=== PATIENT | female | born 1945 | race Caucasian/White ===

== ENCOUNTER → 2017-05-18 | Day surgery (SDC) | payer MEDICARE, BC ==
[~2017-05-18] MED LIST: ALPRAZolam 0.25 MG TAB PO PRN; ALPRAZolam 0.5 MG TAB PO PRN; ASPIRIN 325 MG TAB PO STA; ATORVASTATIN 20 MG TAB PO SCH; ATORVASTATIN 80 MG TAB PO STA; FAMOTIDINE 20 MG TAB PO SCH; HEPARIN SODIUM 1,000 UN/ML (10ML VL) IV ONE; HEPARIN SODIUM 1,000 UN/ML (10ML VL) ONE; IOHEXOL 350 MG/ML 125ML BOTTLE INJ ONE; LIDOCAINE 2% INJ 20 MG/ML (20 ML MDV) ONE; LINAGLIPTIN 5 MG TABLET PO SCH; LISINOPRIL 20 MG TAB PO SCH; NITROGLYCERIN SL TABS 0.4 MG TAB SUBLINGUAL PRN; NON-FORMULARY DRUG (Aspirin Ec 325 MG) PO SCH; RX INFO: IV CONTRAST WAS GIVEN 1 EACH MISC MISCELLANE PRN; SODIUM CHLORIDE 0.9% 1,000 ML IV SCH; SODIUM CHLORIDE 0.9% 1,000 ML in EMPTY BAG 1 BAG IV ONE; VERAPAMIL 2.5 MG/ML 2 ML AMP ONE; VERAPAMIL SYRINGE (5 MG/10 ML) INTRAARTER ONE; diphenhydrAMINE 50 MG/ML 1 ML VIAL IVP ONE; diphenhydrAMINE 50 MG/ML 1 ML VIAL ONE; fentaNYL (PF) 50 MCG/ML 2 ML AMP IV ONE; fentaNYL (PF) 50 MCG/ML 2 ML AMP ONE
[2017-05-18 07:01] LABS: Glucose,Whole Blood 113 mg/dL (75-99)
[2017-05-18 07:08] VITALS: RESP 18
[2017-05-18 07:29] LABS: Anion Gap 8 mmol/L; Blood Urea Nitrogen 19 mg/dL (7-17); Calcium 9.6 mg/dL (8.4-10.2); Carbon Dioxide 23 mmol/L (22-30); Chloride 108 mmol/L (98-107); Glucose 108 mg/dL (74-99); Non-African American GFR(MDRD) >60 (>60 ml/min/1.73 sqM); Potassium 4.4 mmol/L (3.5-5.1); Sodium 139 mmol/L (137-145)
[2017-05-18 08:44] VITALS: TEMP 98
--- NOTE | 2017-05-18 12:12 | CC ---
Mrs. Rogers is a 71 year old female with a known history of hypertension, hyperlipidemia, diabetes mellitus, who presented to [facility] with symptoms of progressive dyspnea and has been evaluated by Dr. Steen and subsequently by Dr. Tessa Torres. Underwent myocardial perfusion imaging that revealed evidence of inducible ischemia. In view of that, recommendation was made regarding cardiac catheterization. The procedure as well as risks and complications were discussed with the patient who is in full understanding and agreement. PROCEDURE: The patient was brought to the custodial laborer in a fasting semi-sedated state. After receiving Fentanyl and Benadryl, achieving moderate conscious sedated state, using Xylocaine anesthesia and Seldinger technique, a 6 [place] Islander sheath was introduced into the right radial artery . Selective right and left coronary artery was performed using 5 [place]er 4 Bend, right and left Garrick catheter. Multiple views of the right coronary artery including hemiaxial views were obtained. Following that, the 5 [place] Islander tight pigtail catheter was introduced into the left ventricle and a 30 degree CASTILLO view of the left ventricle was obtained. Following that, catheter and sheath were removed. Hemostasis was obtained with deployment of a TR band. There were no immediate complications. The patient was returned to her room in stable condition. Of note, the patient received 5000 units of intravenous heparin as well as intra- arterial verapamil. FINDINGS: LEFT MAIN: This is a short size vessel large in caliber, bifurcating into left circumflex, left anterior descending artery. Left main coronary artery is without any significant obstructive disease. LEFT ANTERIOR DESCENDING ARTERY: This is a large size vessel tapers down into the distal third giving rise to a moderate sized proximal diagonal branch. The left anterior descending artery as well as branches have no evidence of obstructive coronary artery disease. LEFT CIRCUMFLEX: This is a large nondominant vessel, giving rise to two obtuse marginal branches. The second one is the large in caliber. The left circumflex as well as branches have no evidence of obstructive coronary artery disease. RIGHT CORONARY ARTERY: This is a dominant vessel, moderate to large in caliber, giving rise to a PDA distally. The right coronary artery as well as branches have no evidence of obstructive coronary artery disease. LEFT VENTRICULOGRAM: Left ventriculogram was performed in 30 degree CASTILLO view and revealed normal left ventricular size and systolic function. Ejection fraction 60%. There was no significant mitral regurgitation. HEMODYNAMICS: There was no gradient across the aortic valve. The left ventricular end diastolic pressure was 10 mmHg. CONCLUSION: 1. Normal coronary arteries. 2. Normal left ventricular size and systolic function. Duration of procedure: 15 minutes. MARILUZD
--- NOTE | 2017-05-18 12:17 | MISC ---
Dear Dr. Albright: I had the pleasure of performing cardiac catheterization on Mrs. Rogers at [facility] on the april and a fully copy of procedure note will be forwarded to you. In brief, she was found to have no evidence of obstructive coronary artery disease with normal left ventricular size and systolic function. Based on those findings, I have recommended continued medical therapy with aggressive coronary risks modifications that you have initiated. Thank you again for allowing me to participate in her care. Please feel free to call for any questions. Sincerely yours, JUAN CARLOS
[2017-05-18 13:14] VITALS: BP 124/59; PULSE 79
== END | disposition home or self-care (01) ==
LOC: CATHCVL 05:56
PROVIDERS: ATTEND Internal Medicine Interventional Cardiology
DX: R06.00 Dyspnea, unspecified (principal); R55 Syncope and collapse; I10 Essential (primary) hypertension; E11.9 Type 2 diabetes mellitus without complications; E78.5 Hyperlipidemia, unspecified; Z68.41 Body mass index [BMI] 40.0-44.9, adult; E66.01 Morbid (severe) obesity due to excess calories; Z79.84 Long term (current) use of oral hypoglycemic drugs; Z79.899 Other long term (current) drug therapy; Z88.8 Allergy status to other drugs, medicaments and biological substances
CPT/HCPCS: 93458; 80048; 99152; C1769 ×2; C1894; J1200; J3010; J1644; Q9967

== ENCOUNTER → 2024-09-06 | Outpatient (CLI) | payer MEDICARE, BC ==
[2024-09-06 13:30] LABS: African American GFR (CKD) 84 (>60 ml/min/1.73 sqM); Blood Urea Nitrogen 18 mg/dL (7-17); Non-African American GFR(CKD) 73 (>60 ml/min/1.73 sqM)
--- NOTE | 2024-09-06 16:47 | CT ---
EXAMINATION TYPE: CT angio abdomen pelvis CT DLP: 2291 mGycm, Automated exposure control for dose reduction was used. DATE OF EXAM: 09/06/2024 3:06 PM COMPARISON: None CLINICAL INDICATION:Female, 78 years old with history of I72.8 ANEURYSM OF OTHER SPECIFIED ARTERIES; splenic aneurysm TECHNIQUE: Multiple thin slice sub-millimeter images were obtained through the abdomen and pelvis bef ore and after administration of contrast. Patient was given Isovue 370, 100 cc intravenously. FINDINGS: CTA Abdomen and pelvis: The abdominal aorta does not demonstrate aneurysmal dilatation. Atherosclero tic plaquing is identified within the abdominal aorta. Tortuosity of the abdominal aorta. The origin s of the superior mesenteric artery, renal arteries, inferior mesenteric artery, and celiac axis are patent. Patent fusiform splenic artery aneurysm measuring up to 1.8 cm with peripheral calcification (series 8, image 72). Mild stenosis at the origin of the celiac axis secondary to calcified plaque. T here are 2 left renal arteries. Mild stenosis at the origin of the right single renal artery secondar y to calcified plaque. Atherosclerotic plaquing with some mural thrombus formation is identified in t he common iliac arteries. VISCERA: The liver, spleen, adrenal glands, kidneys, pancreas, and gallbladder are not optimally enha nced due the arterial phase utilized. LIVER: Unremarkable GALLBLADDER AND BILE DUCTS: The gallbladder is surgically absent. No significant biliary ductal dilat ation. PANCREAS: Unremarkable. SPLEEN: Calcified granuloma. ADRENAL GLANDS: Unremarkable. KIDNEYS AND URETERS: No evidence of hydronephrosis or renal calculus. 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 PELVIS BLADDER: Incompletely distended but grossly unremarkable. REPRODUCTIVE: Unremarkable. ABDOMEN & PELVIS STOMACH AND BOWEL: Stomach and duodenum are unremarkable. No focal bowel wall thickening or surroundi ng inflammatory changes. No evidence of bowel obstruction. PERITONEUM: No evidence of pneumoperitoneum or free fluid. MUSCULOSKELETAL: No acute osseous abnormalities. Postsurgical changes with bilateral pedicular screws and rods involving L2-S1. Multilevel degenerative disc disease. Advanced bilateral osteoarthritic ch anges of both hips. LYMPH NODES: No evidence for lymphadenopathy. SOFT TISSUE/ABDOMINAL WALL: Small fat filled umbilical hernia. LOWER CHEST: Mitral annulus and valvular calcifications. Visualized lungs are clear. Elevation of the right hemidiaphragm. IMPRESSION 1. No acute process. 2. Atherosclerotic disease involving abdominal aorta and its branches. Patent splenic artery aneurys m measuring up to 1.8 cm. [facility], , 09/06/2024 4:45 PM
== END ==
LOC: RADCTMAIN 12:15
PROVIDERS: ATTEND Surgery
DX: I72.8 Aneurysm of other specified arteries (principal); I70.0 Atherosclerosis of aorta; K42.9 Umbilical hernia without obstruction or gangrene; M16.0 Bilateral primary osteoarthritis of hip
CPT/HCPCS: 82565; 84520; 36415; 74174; Q9967

== ENCOUNTER 2025-05-07 16:15 | Inpatient (IN) | payer MEDICARE, BC ==
[2025-05-07 17:22] LABS: Basophils # (A) 0.06 10*3/uL (0.00-0.10); Basophils % (A) 0.9 %; Eosinophils # (A) 0.28 10*3/uL (0.04-0.35); Eosinophils % (A) 4.4 %; HCT 34.5 % (37.2-46.3); HGB 10.8 g/dL (12.0-15.0); Lymphocytes # (A) 0.99 10*3/uL (0.90-5.00); Lymphocytes % (A) 15.7 %; MCH 31.3 pg (27.0-32.0); MCHC 31.3 g/dL (32.0-37.0); MCV 100.0 fL (80.0-97.0); Monocytes # (A) 0.61 10*3/uL (0.20-1.00); Monocytes % (A) 9.7 %; Neutrophils # (A) 4.36 10*3/uL (1.80-7.70); Neutrophils % (A) 69.0 %; Platelet Count 258 10*3/uL (140-440); RBC 3.45 10*6/uL (4.10-5.20); RDW 14.5 % (11.5-14.5); WBC 6.32 10*3/uL (4.50-10.00)
--- NOTE | 2025-05-07 17:24 | XR ---
EXAMINATION TYPE: XR chest 2V DATE OF EXAM: 05/07/2025 5:03 PM COMPARISON: Chest radiographs from; 06/29/2012 CLINICAL INDICATION: Female, 79 years old with history of Chest Pain; [facility]ATED [facility]IN [facility] TECHNIQUE: XR chest 2V Frontal and lateral views of the chest. FINDINGS: Lungs/Pleura: No evidence of focal consolidation or pneumothorax. Blunting of the costophrenic angles is present. Pulmonary vascularity: Pulmonary vascular congestion. Heart/mediastinum: Cardiomediastinal silhouette is enlarged. Musculoskeletal: No acute osseous pathology. IMPRESSION: Cardiomegaly, pulmonary vascular congestion and bilateral pleural effusions. Correlate with BNP for c ongestive heart failure. [facility], , 05/07/2025 5:21 PM
[2025-05-07 17:29] LABS: ALT 16 U/L (4-34); AST 21 U/L (14-36); African American GFR (CKD) >90 (>60 ml/min/1.73 sqM); Albumin 3.4 g/dL (3.5-5.0); Alkaline Phosphatase 94 U/L (38-126); Anion Gap 5 mmol/L; Blood Urea Nitrogen 16 mg/dL (7-17); Calcium 8.5 mg/dL (8.4-10.2); Carbon Dioxide 22 mmol/L (22-30); Chloride 111 mmol/L (98-107); Glucose 117 mg/dL (74-99); Magnesium 1.9 mg/dL (1.6-2.3); Non-African American GFR(CKD) 85 (>60 ml/min/1.73 sqM); Potassium 4.2 mmol/L (3.5-5.1); Sodium 138 mmol/L (137-145); Total Protein 5.6 g/dL (6.3-8.2)
[2025-05-07 17:35] LABS: INR 0.9 (<1.2); Partial Thromboplastin Time 21.4 sec (22.0-30.0); Prothrombin Time 10.5 sec (10.0-12.5)
--- NOTE | 2025-05-07 18:12 | ED ---
General Adult HPI - General Chief complaint: Chest Pain Stated complaint: SOB Time Seen by Provider: 05/07/25 16:55 Source: patient, EMS, RN notes reviewed Mode of arrival: EMS Limitations: no limitations - History of Present Illness Initial comments: 79-year-old female presents to the emergency department for evaluation of chest tightness and shortness of breath. Patient notes that this started yesterday. She states that she is significantly short of breath especially with ambulation. She notes that she feels she is wheezy. Patient does endorse sore throat. She denies any fever or chills. Denies any lower extremity edema. - Related Data Home Medications Medication Instructions Recorded Confirmed Atorvastatin [Lipitor] 40 mg PO DAILY 05/07/25 05/07/25 Carbamide Peroxide [Debrox Otic] 1 - 5 drops BOTH EARS DAILY PRN 05/07/25 05/07/25 Cyanocobalamin (Vitamin B-12) 1,000 mcg PO DAILY 05/07/25 05/07/25 [Vitamin B-12] DULoxetine HCL [Cymbalta] 20 mg PO DAILY 05/07/25 05/07/25 Ferrous Sulfate [Iron (65 MG 325 mg PO DAILY 05/07/25 05/07/25 Elemental)] Pantoprazole Sodium [Protonix] 20 mg PO DAILY 05/07/25 05/07/25 Propylene Glycol/Peg 400 [Systane 1 - 2 drops BOTH EYES QID PRN 05/07/25 05/07/25 Ultra 0.4-0.3% Eye Drp] Previous Rx's Medication Instructions Recorded Apixaban [Eliquis] 5 mg PO BID tab 05/13/25 Dapagliflozin Propanediol [Farxiga] 10 mg PO DAILY #0 tab 05/13/25 Furosemide [Lasix] 40 mg PO BID@0900,1600 tab 05/13/25 HYDROcodone/APAP 5-325MG [Weed 1 tab PO Q6H 3 Days #4 tab 05/13/25 5-325] Isosorbide Dinitrate [Isordil] 20 mg PO BID tab 05/13/25 Sennosides [Senokot] 8.6 mg PO DAILY #0 05/13/25 carvediloL [Coreg] 6.25 mg PO BID-W/MEALS tab 05/13/25 hydrALAZINE HCL [Apresoline] 25 mg PO BID tab 05/13/25 predniSONE 10 mg PO DIRECTED #40 tab 05/13/25 Allergies Allergy/AdvReac Type Severity Reaction Status Date / Time lisinopril Allergy Anaphylaxis Verified 05/07/25 20:22 metformin AdvReac kidneys Verified 05/07/25 20:22 shut down methotrexate AdvReac Rapid Verified 05/07/25 20:22 Heart Rate Review of Systems ROS Statement: Those systems with pertinent positive or pertinent negative responses have been documented in the HPI. ROS Other: All systems not noted in ROS Statement are negative. 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 History of Any Multi-Drug Resistant Organisms: None Reported Past Surgical History: Back Surgery Past Psychological History: No Psychological Hx Reported Smoking Status: Never smoker Past Alcohol Use History: None Reported Past Drug Use History: None Reported General Exam Limitations: no limitations General appearance: alert, in no apparent distress Head exam: Present: atraumatic, normocephalic, normal inspection Eye exam: Present: normal appearance, PERRL, EOMI. Absent: scleral icterus, conjunctival injection, periorbital swelling Neck exam: Present: normal inspection. Absent: tenderness, meningismus, lymphadenopathy Respiratory exam: Present: wheezes, rales. Absent: respiratory distress, rhonchi, stridor Cardiovascular Exam: Present: regular rate, normal rhythm. Absent: systolic murmur, diastolic murmur, rubs, gallop, clicks Extremities exam: Present: normal inspection, full ROM, normal capillary refill. Absent: tenderness, pedal edema, joint swelling, calf tenderness Back exam: Present: normal inspection Neurological exam: Present: alert, oriented X3 Psychiatric exam: Present: normal affect, normal mood Skin exam: Present: warm, dry, intact, normal color. Absent: rash Course Vital Signs 05/07/25 05/07/25 05/07/25 16:24 16:33 18:36 Temperature 98.7 F Pulse Rate 79 82 76 Respiratory 24 22 Rate Blood Pressure 137/83 133/70 O2 Sat by Pulse 96 95 Oximetry 05/07/25 05/07/25 05/07/25 18:44 18:45 20:00 Temperature Pulse Rate 78 89 97 Respiratory 20 20 Rate Blood Pressure 149/81 125/69 O2 Sat by Pulse 93 L 94 L Oximetry 05/07/25 05/07/25 21:28 23:00 Temperature Pulse Rate 79 80 Respiratory 12 16 Rate Blood Pressure 171/79 O2 Sat by Pulse 95 94 L Oximetry Medical Decision Making - Medical Decision Making Was pt. sent in by a medical professional or institution (, [facility], RESTAURANT K[employer] AND SERVICE MANAGER, urgent care, hospital, or residential...) When possible be specific @ -No Did you speak to anyone other than the patient for history (EMS, parent, family, police, friend...)? What history was obtained from this source @ -No Did you review nursing and triage notes (agree or disagree)? Why? @ -I reviewed and agree with nursing and triage notes Were old charts reviewed (outside hosp., previous admission, EMS record, old EKG, old radiological studies, urgent care reports/EKG's, residential records)? Report findings @ -No old charts were reviewed Differential Diagnosis (chest pain, altered mental status, abdominal pain women, abdominal pain men, vaginal bleeding, weakness, fever, dyspnea, syncope, headache, dizziness, GI bleed, back pain, seizure, CVA, palpatations, mental health, musculoskeletal)? @ -Differential Dyspnea: Coronary syndrome, arrhythmia, tamponade, asthma, COPD, pulmonary embolism, pneumonia, pneumothorax, pulmonary effusion, anaphylaxis, diabetic ketoacidosis, flailed chest, pulmonary contusion, diaphragmatic rupture, anemia, neuromuscular, this is not meant to be an all-inclusive list. EKG interpreted by me (3pts min.). @ -EKG at 1633 shows A-fib rate of 84, QRS 87, QTQTc 021984 X-rays interpreted by me (1pt min.). @ -None done CT interpreted by me (1pt min.). @ -None done U/S interpreted by me (1pt. min.). @ -None done What testing was considered but not performed or refused? (CT, X-rays, U/S, labs)? Why? @ -None What meds were considered but not given or refused? Why? @ -None Did you discuss the management of the patient with other professionals (professionals i.e. [facility] [place], RESTAURANT K[employer] AND SERVICE MANAGER, lab, RT, psych nurse, delinquency prevention social worker, restaurant attendant, teacher, search and rescue officer, onsite case manager)? Give summary @ -Management discussed with . She was accepting of the admission Was smoking cessation discussed for >3mins.? @ -No Was critical care preformed (if so, how long)? @ -No Were there social determinants of health that impacted care today? How? (Homelessness, low income, unemployed, alcoholism, drug addiction, transportation, low edu. Level, literacy, decrease access to med. care, prison, rehab)? @ -No Was there de-escalation of care discussed even if they declined (Discuss DNR or withdrawal of care, Hospice)? DNR status @ -No What co-morbidities impacted this encounter? (DM, HTN, Smoking, COPD, CAD, Cancer, CVA, ARF, Chemo, Hep., AIDS, mental health diagnosis, sleep apnea, morbid obesity)? @ -None Was patient admitted / discharged? Hospital course, mention meds given and route , prescriptions, significant lab abnormalities, going to OR and other pertinent info. @ -Admitted. Patient presented emergency department for evaluation of shortness of breath. Laboratory studies revealedNo significant leukocytosis, hemoglobin 10.8; coagulation studies nonactionable CMP reveals electrolytes nonactionable, troponin 0.015, BNP 1730 patient was negative for COVID, influe nza, RSV. Chest x-ray reveals cardiomegaly, pulmonary vascular congestion, bilateral pleural effusions. Patient will be admitted for CHF exacerbation. She is understanding agreeable with plan. Patient stable at time of admission Case discussed with Dr. Garcia. Undiagnosed new problem with uncertain prognosis? @ -No Drug Therapy requiring intensive monitoring for toxicity (Heparin, Nitro, Insulin, Cardizem)? @ -No Were any procedures done? @ -No Diagnosis/symptom? @ -CHF exacerbation Acute, or Chronic, or Acute on Chronic? @ -Acute Uncomplicated (without systemic symptoms) or Complicated (systemic symptoms)? @ -Uncomplicated Side effects of treatment? @ -No Exacerbation, Progression, or Severe Exacerbation? @ -No Poses a threat to life or bodily function? How? (Chest pain, USA, OR, pneumonia, PE, COPD, DKA, ARF, appy, cholecystitis, CVA, Diverticulitis, Homicidal, Suicidal, threat to staff... and all critical care pts) @ -No - Lab Data Result diagrams: 05/12/25 03:13 05/12/25 03:13 Lab Results 05/07/25 05/07/25 05/07/25 Range/Units 16:51 16:51 16:51 WBC 6.32 (4.50-10.00) 10*3/uL RBC 3.45 L (4.10-5.20) 10*6/uL Hgb 10.8 L (12.0-15.0) g/dL Hct 34.5 L (37.2-46.3) % MCV 100.0 H (80.0-97.0) fL MCH 31.3 (27.0-32.0) pg MCHC 31.3 L (32.0-37.0) g/dL Plt Count 258 (140-440) 10*3/uL MPV 8.3 L (9.5-12.2) fL Immature Gran % (Auto) 0.3 % Neutrophils % 69.0 % Lymphocytes % 15.7 % Monocytes % 9.7 % Eosinophils % 4.4 % Basophils % 0.9 % Immature Gran # 0.02 (0.00-0.04) 10*3/uL Neutrophils # 4.36 (1.80-7.70) 10*3/uL Lymphocytes # 0.99 (0.90-5.00) 10*3/uL Monocytes # 0.61 (0.20-1.00) 10*3/uL Eosinophils # 0.28 (0.04-0.35) 10*3/uL Basophils # 0.06 (0.00-0.10) 10*3/uL PT 10.5 (10.0-12.5) sec INR 0.9 (<1.2) APTT 21.4 L (22.0-30.0) sec Sodium 138 (137-145) mmol/L Potassium 4.2 (3.5-5.1) mmol/L Chloride 111 H (98-107) mmol/L Carbon Dioxide 22 (22-30) mmol/L Anion Gap 5 mmol/L BUN 16 (7-17) mg/dL Creatinine 0.62 (0.52-1.04) mg/dL Est GFR (CKD-EPI)AfAm >90 (>60 ml/min/1.73 sqM) Est GFR (CKD-EPI)NonAf 85 (>60 ml/min/1.73 sqM) Glucose 117 H (74-99) mg/dL Calcium 8.5 (8.4-10.2) mg/dL Magnesium 1.9 (1.6-2.3) mg/dL Total Bilirubin 0.6 (0.2-1.3) mg/dL AST 21 (14-36) U/L ALT 16 (4-34) U/L Alkaline Phosphatase 94 (38-126) U/L Troponin I (0.000-0.034) ng/mL NT-Pro-B Natriuret Pep pg/mL Total Protein 5.6 L (6.3-8.2) g/dL Albumin 3.4 L (3.5-5.0) g/dL Influenza Type A (PCR) (Not Detectd) Influenza Type B (PCR) (Not Detectd) RSV (PCR) (Not Detectd) SARS-CoV-2 (PCR) (Not Detectd) 05/07/25 05/07/25 05/07/25 Range/Units 16:51 16:51 18:11 WBC (4.50-10.00) 10*3/uL RBC (4.10-5.20) 10*6/uL Hgb (12.0-15.0) g/dL Hct (37.2-46.3) % MCV (80.0-97.0) fL MCH (27.0-32.0) pg MCHC (32.0-37.0) g/dL Plt Count (140-440) 10*3/uL MPV (9.5-12.2) fL Immature Gran % (Auto) % Neutrophils % % Lymphocytes % % Monocytes % % Eosinophils % % Basophils % % Immature Gran # (0.00-0.04) 10*3/uL Neutrophils # (1.80-7.70) 10*3/uL Lymphocytes # (0.90-5.00) 10*3/uL Monocytes # (0.20-1.00) 10*3/uL Eosinophils # (0.04-0.35) 10*3/uL Basophils # (0.00-0.10) 10*3/uL PT (10.0-12.5) sec INR (<1.2) APTT (22.0-30.0) sec Sodium (137-145) mmol/L Potassium (3.5-5.1) mmol/L Chloride (98-107) mmol/L Carbon Dioxide (22-30) mmol/L Anion Gap mmol/L BUN (7-17) mg/dL Creatinine (0.52-1.04) mg/dL Est GFR (CKD-EPI)AfAm (>60 ml/min/1.73 sqM) Est GFR (CKD-EPI)NonAf (>60 ml/min/1.73 sqM) Glucose (74-99) mg/dL Calcium (8.4-10.2) mg/dL Magnesium (1.6-2.3) mg/dL Total Bilirubin (0.2-1.3) mg/dL AST (14-36) U/L ALT (4-34) U/L Alkaline Phosphatase (38-126) U/L Troponin I 0.015 (0.000-0.034) ng/mL NT-Pro-B Natriuret Pep 1730 pg/mL Total Protein (6.3-8.2) g/dL Albumin (3.5-5.0) g/dL Influenza Type A (PCR) Not Detected (Not Detectd) Influenza Type B (PCR) Not Detected (Not Detectd) RSV (PCR) Not Detected (Not Detectd) SARS-CoV-2 (PCR) Not Detected (Not Detectd) 05/07/25 Range/Units 20:09 WBC (4.50-10.00) 10*3/uL RBC (4.10-5.20) 10*6/uL Hgb (12.0-15.0) g/dL Hct (37.2-46.3) % MCV (80.0-97.0) fL MCH (27.0-32.0) pg MCHC (32.0-37.0) g/dL Plt Count (140-440) 10*3/uL MPV (9.5-12.2) fL Immature Gran % (Auto) % Neutrophils % % Lymphocytes % % Monocytes % % Eosinophils % % Basophils % % Immature Gran # (0.00-0.04) 10*3/uL Neutrophils # (1.80-7.70) 10*3/uL Lymphocytes # (0.90-5.00) 10*3/uL Monocytes # (0.20-1.00) 10*3/uL Eosinophils # (0.04-0.35) 10*3/uL Basophils # (0.00-0.10) 10*3/uL PT (10.0-12.5) sec INR (<1.2) APTT (22.0-30.0) sec Sodium (137-145) mmol/L Potassium (3.5-5.1) mmol/L Chloride (98-107) mmol/L Carbon Dioxide (22-30) mmol/L Anion Gap mmol/L BUN (7-17) mg/dL Creatinine (0.52-1.04) mg/dL Est GFR (CKD-EPI)AfAm (>60 ml/min/1.73 sqM) Est GFR (CKD-EPI)NonAf (>60 ml/min/1.73 sqM) Glucose (74-99) mg/dL Calcium (8.4-10.2) mg/dL Magnesium (1.6-2.3) mg/dL Total Bilirubin (0.2-1.3) mg/dL AST (14-36) U/L ALT (4-34) U/L Alkaline Phosphatase (38-126) U/L Troponin I 0.017 (0.000-0.034) ng/mL NT-Pro-B Natriuret Pep pg/mL Total Protein (6.3-8.2) g/dL Albumin (3.5-5.0) g/dL Influenza Type A (PCR) (Not Detectd) Influenza Type B (PCR) (Not Detectd) RSV (PCR) (Not Detectd) SARS-CoV-2 (PCR) (Not Detectd) Disposition Clinical Impression: CHF exacerbation Disposition: ADMITTED IP TO THIS HOSP Condition: Stable Is patient prescribed a controlled substance at d/c from ED?: No
[2025-05-07] MEDS: MORPHINE SULFATE 4 MG/ML SYRINGE IVP STA (18:22)
[2025-05-07] MEDS: IPRATROPIUM-ALBUTEROL 3 ML NEB INHALATION STA (18:35)
[2025-05-07 19:35] LABS: RSV Not Detected (Not Detectd)
[2025-05-07] MEDS: FUROSEMIDE 10 MG/ML 4 ML VIAL IV STA (19:53)
[2025-05-07] MEDS ORDERED: NALOXONE 0.4 MG/ML 1 ML VIAL IV PRN (20:33)
[2025-05-07] MEDS: HYDROmorphone 0.5 MG/0.5 ML SYRINGE IVP PRN (22:50)
[2025-05-08] MEDS: MORPHINE SULFATE 4 MG/ML SYRINGE IV PRN (01:25)
[2025-05-08 06:10] LABS: Glucose,Whole Blood 130 mg/dL (70-110)
[2025-05-08] MEDS: ATORVASTATIN 40 MG TAB PO SCH (10:10)
[2025-05-08] MEDS: PANTOPRAZOLE 40 MG TABLET PO SCH (10:10)
[2025-05-08] MEDS: ASPIRIN 81 MG PO SCH (10:10)
[2025-05-08] MEDS: amLODIPine 10 MG TAB PO SCH (10:10)
[2025-05-08] MEDS: FUROSEMIDE 10 MG/ML 4 ML VIAL IV SCH (10:10)
[2025-05-08] MEDS: HYDROcodone/APAP 5-325MG 1 EACH TAB PO SCH (10:10)
[2025-05-08] MEDS: FERROUS SULFATE 325 MG TAB PO SCH (10:10)
[2025-05-08] MEDS: methylPREDNISolone SOD SUCCI 40 MG/ML 1 ML VIAL IV SCH (11:17)
--- NOTE | 2025-05-08 11:39 | P.CRDCN ---
History of Present Illness History of present illness: HISTORY OF PRESENT ILLNESS: This is a 79-year-old female with a past medical history significant for normal coronary arteries, atrial fibrillation, hypertension, and hyperlipidemia. 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 We have been asked to see the patient in consultation for shortness of breath. Patient examined at the bedside. Patient presented to the hospital with a chief complaint of shortness of breath. The patient also was complaining of nausea this morning. She denies any lower extremity swelling. She does report having weight gain recently. She denies any known history of CHF. The patient does have a history of atrial fibrillation. She is not anticoagulated on an outpatient basis. She is unsure of the reason why. She denies any known history of bleeding issues. DIAGNOSTICS: - EKG reveals atrial fibrillation with controlled intraocular rate. - Chest xray cardiomegaly, pulmonary vascular congestion and bilateral pleural effusions. - Laboratory data: Troponin negative x 3. proBNP 1730. - Current home cardiac medications include amlodipine 10 mg daily, Lipitor 40 mg daily, aspirin 81 mg daily. - Most recent echocardiogram obtained in December 2004 revealing normal EF - Cardiac catheterization history: 2017 revealing normal coronary arteries REVIEW OF SYSTEMS: At the time of my exam: CONSTITUTIONAL: Denies fever or chills. HEENT: Denies blurred vision, vision changes, or eye pain. Denies hemoptysis CARDIOVASCULAR: Denies chest pain. Denies orthopnea. Denies PND. Denies palpitations RESPIRATORY: Denies shortness of breath. GASTROINTESTINAL: Denies abdominal pain. Denies nausea or vomiting. HEMATOLOGIC: Denies bleeding disorders. GENITOURINARY: Denies any blood in urine. SKIN: Denies pruitis. Denies rash. PHYSICAL EXAM: VITAL SIGNS: Reviewed. GENERAL: Well-developed in no acute distress. HEENT: Head is normocephalic. Pupils are equal, round. Sclerae anicteric. Mucous membranes of the mouth are moist. Neck supple. No JVD or thyromegaly LUNGS: Respirations even and unlabored. Lungs with bilateral wheezing noted HEART: Irregular rate and rhythm. S1 and S2 heard. Systolic murmur noted ABDOMEN: Soft. Nondistended. Nontender. EXTREMITIES: Normal range of motion. No clubbing or cyanosis. Peripheral pulses intact. No lower extremity edema NEUROLOGIC: Awake and alert. Oriented x 3. ASSESSMENT: Shortness of breath Acute heart failure with preserved EF, repeat echo pending Persistent atrial fibrillation, not anticoagulated on outpatient basis for unknown reason Suspected aortic stenosis due to systolic murmur auscultated Normal coronary arteries, per cath 2017 Hypertension Hyperlipidemia PLAN: Obtain 2D echo to assess cardiac structure and function Begin IV heparin. Will transition to oral anticoagulation tomorrow due to history of atrial fibrillation Begin IV Lasix 40 mg every 12 hours Add Farxiga Daily weights, accurate intake and output, monitoring of kidney function Further recommendations pending patient course Nurse practitioner note has been reviewed by physician. Signing provider agrees with the documented findings, assessment, and plan of care documented by TEACHER INSTRUMENTAL as a scribe. 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 Spinal stenosis, Sciatica History of Any Multi-Drug Resistant Organisms: None Reported Past Surgical History: Back Surgery Past Psychological History: No Psychological Hx Reported Smoking Status: Never smoker Past Alcohol Use History: None Reported Past Drug Use History: None Reported Medications and Allergies Home Medications Medication Instructions Recorded Confirmed Type Aspirin EC [Ecotrin Low Dose] 81 mg PO DAILY 05/07/25 05/07/25 History Aspirin [Aspirin EC] 1,000 mg PO Q4-6H PRN 05/07/25 05/07/25 History Atorvastatin [Lipitor] 40 mg PO DAILY 05/07/25 05/07/25 History Carbamide Peroxide [Debrox Otic] 1 - 5 drops BOTH EARS DAILY PRN 05/07/25 05/07/25 History Cyanocobalamin (Vitamin B-12) 1,000 mcg PO DAILY 05/07/25 05/07/25 History [Vitamin B-12] DULoxetine HCL [Cymbalta] 20 mg PO DAILY 05/07/25 05/07/25 History Ferrous Sulfate [Feosol] 325 mg PO DAILY 05/07/25 05/07/25 History HYDROcodone/APAP 5-325MG [[place] 1 tab PO Q6H 05/07/25 05/07/25 History 5-325] Pantoprazole Sodium [Protonix] 20 mg PO DAILY 05/07/25 05/07/25 History Propylene Glycol/Peg 400 [Systane 1 - 2 drops BOTH EYES QID PRN 05/07/25 05/07/25 History Ultra 0.4-0.3% Eye Drp] Sennosides [Senokot] 8.6 mg PO DAILY 05/07/25 05/07/25 History amLODIPine [Norvasc] 10 mg PO DAILY 05/07/25 05/07/25 History Allergies Allergy/AdvReac Type Severity Reaction Status Date / Time lisinopril Allergy Anaphylaxis Verified 05/07/25 20:22 metformin AdvReac kidneys Verified 05/07/25 20:22 shut down methotrexate AdvReac Rapid Verified 05/07/25 20:22 Heart Rate Physical Exam Vitals: Vital Signs Temp Pulse Pulse Resp BP BP BP 05/08/25 07:31 97.7 F 84 17 138/70 05/08/25 00:48 76 17 05/08/25 00:36 98.6 F 76 17 151/84 05/07/25 23:00 80 16 171/79 05/07/25 21:28 79 12 05/07/25 20:00 97 20 125/69 05/07/25 18:45 89 20 149/81 05/07/25 18:44 78 05/07/25 18:36 76 05/07/25 16:33 82 22 133/70 05/07/25 16:24 98.7 F 79 24 137/83 Pulse Ox 05/08/25 07:31 94 L 05/08/25 00:48 05/08/25 00:36 95 05/07/25 23:00 94 L 05/07/25 21:28 95 05/07/25 20:00 94 L 05/07/25 18:45 93 L 05/07/25 18:44 05/07/25 18:36 05/07/25 16:33 95 05/07/25 16:24 96 Intake and Output 05/07/25 05/08/25 05/08/25 22:59 06:59 14:59 Output Total 850 200 Balance -850 -200 Output: Urine 850 200 Other: Voiding Method External Catheter External Catheter Weight 113.398 kg 85 kg Results 05/07/25 16:51 05/07/25 16:51 Cardiac Enzymes 05/07/25 05/07/25 05/07/25 Range/Units 16:51 16:51 20:09 AST 21 (14-36) U/L Troponin I 0.015 0.017 (0.000-0.034) ng/mL 05/07/25 Range/Units 23:33 AST (14-36) U/L Troponin I 0.015 (0.000-0.034) ng/mL Coagulation 05/07/25 Range/Units 16:51 PT 10.5 (10.0-12.5) sec APTT 21.4 L (22.0-30.0) sec CBC 05/07/25 Range/Units 16:51 WBC 6.32 (4.50-10.00) 10*3/uL RBC 3.45 L (4.10-5.20) 10*6/uL Hgb 10.8 L (12.0-15.0) g/dL Hct 34.5 L (37.2-46.3) % Plt Count 258 (140-440) 10*3/uL Comprehensive Metabolic Panel 05/07/25 Range/Units 16:51 Sodium 138 (137-145) mmol/L Potassium 4.2 (3.5-5.1) mmol/L Chloride 111 H (98-107) mmol/L Carbon Dioxide 22 (22-30) mmol/L BUN 16 (7-17) mg/dL Creatinine 0.62 (0.52-1.04) mg/dL Glucose 117 H (74-99) mg/dL Calcium 8.5 (8.4-10.2) mg/dL AST 21 (14-36) U/L ALT 16 (4-34) U/L Alkaline Phosphatase 94 (38-126) U/L Total Protein 5.6 L (6.3-8.2) g/dL Albumin 3.4 L (3.5-5.0) g/dL Current Medications Generic Name Dose Route Start Last Admin Trade Name Freq PRN Reason Stop Dose Admin Hydrocodone Bitart/Acetaminophen 1 each 05/08/25 10:00 05/08/25 10:10 Hydrocodone/Apap 5-325mg 1 Each Tab PO 1 each Q6H ELPIDIO Administration Albuterol/Ipratropium 3 ml 05/08/25 12:00 Ipratropium-Albuterol 3 Ml Neb INHALATION RT-QID [facility] Amlodipine Besylate 10 mg 05/08/25 09:30 05/08/25 10:10 Amlodipine 10 Mg Tab PO 10 mg DAILY ELPIDIO Administration Aspirin 81 mg 05/08/25 10:00 05/08/25 10:10 Aspirin 81 Mg PO 81 mg DAILY ELPIDIO Administration Atorvastatin Calcium 40 mg 05/08/25 09:30 05/08/25 10:10 Atorvastatin 40 Mg Tab PO 40 mg DAILY ELPIDIO Administration Cyanocobalamin 1,000 mcg 05/09/25 09:00 Cyanocobalamin 500 Mcg Tab PO DAILY ELPIDIO Duloxetine HCl 20 mg 05/08/25 10:00 05/08/25 11:14 Duloxetine Hcl 20 Mg Capsule.Dr PO 20 mg DAILY ELPIDIO Administration Ferrous Sulfate 325 mg 05/08/25 10:00 05/08/25 10:10 Ferrous Sulfate 325 Mg Tab PO 325 mg DAILY ELPIDIO Administration Furosemide 40 mg 05/08/25 09:30 05/08/25 10:10 Furosemide 10 Mg/Ml 4 Ml Vial IV 40 mg Q12HR ELPIDIO Administration Hydromorphone HCl 0.5 mg 05/07/25 20:33 05/07/25 22:50 Hydromorphone 0.5 Mg/0.5 Ml Syringe IVP 0.5 mg Q3HR PRN Administration Moderate Pain (Scale 4 to 6) Methylprednisolone Sodium Succinate 40 mg 05/08/25 12:00 05/08/25 11:17 Methylprednisolone Sod Succi 40 Mg/Ml 1 Ml Vial IV 40 mg Q6HR ELPIDIO Administration Morphine Sulfate 4 mg 05/07/25 20:33 05/08/25 05:35 Morphine Sulfate 4 Mg/Ml Syringe IV 4 mg Q4HR PRN Administration Severe Pain (Scale 7 to 10) Naloxone HCl 0.2 mg 05/07/25 20:33 Naloxone 0.4 Mg/Ml 1 Ml Vial IV Q2M PRN Opioid Reversal Pantoprazole Sodium 40 mg 05/08/25 10:00 05/08/25 10:10 Pantoprazole 40 Mg Tablet PO 40 mg DAILY ELPIDIO Administration Intake and Output 05/07/25 05/08/25 05/08/25 22:59 06:59 14:59 Output Total 850 200 Balance -850 -200 Output: Urine 850 200 Other: Voiding Method External Catheter External Catheter Weight 113.398 kg 85 kg 05/07/25 16:51 05/07/25 16:51
[2025-05-08 11:45] LABS: Glucose,Whole Blood 116 mg/dL (70-110)
[2025-05-08] MEDS: HEPARIN SODIUM 1,000 UN/ML (10ML VL) IV ONE (11:48)
[2025-05-08] MEDS: DAPAGLIFLOZIN PROPANEDIOL 10 MG TABLET PO SCH (11:48)
[2025-05-08] MEDS: HEPARIN SOD,PORK IN 0.45% NACL 25,000 UNIT in 0.45% NACL 1 250ML.BAG IV SCH (11:49)
--- NOTE | 2025-05-08 11:53 | CA ---
Transthoracic Echo Report Name: Tonja Rogers Age: 79 Gender: F : 1945 Exam Date: 05/08/2025 09:58 Exam Location: [place] [facility] Ht (in): 69 Wt (lb): 250 Ordering Physician: Bre Weems Attending/Referring Phys: [id number], Faustina Press Cleaner Mariella Nath RDCS Procedure CPT: Indications: sob Cardiac Hx: Technical Quality: Fair Contrast 1: Total Dose (mL): Contrast 2: Total Dose (mL): MEASUREMENTS (Male / Female) Normal Values 2D ECHO LV Diastolic Diameter PLAX 5.0 cm 4.2 - 5.9 / 3.9 - 5.3 cm LV Systolic Diameter PLAX 3.4 cm IVS Diastolic Thickness 1.5 cm 0.6 - 1.0 / 0.6 - 0.9 cm LVPW Diastolic Thickness 1.5 cm 0.6 - 1.0 / 0.6 - 0.9 cm LV Relative Wall Thickness 0.6 RV Internal Dim ED PLAX 3.4 cm LVOT Diameter 1.7 cm LA Systolic Diameter LX 4.0 cm 3.0 - 4.0 / 2.7 - 3.8 cm LV Diastolic Volume MOD BP 113.1 cm??? 67 - 155 / 56 - 104 cm??? LV Systolic Volume MOD BP 51.6 cm??? / 19 - 49 cm??? LV Ejection Fraction MOD BP 54.4 % >= 55 % LV Cardiac Index MOD BP 2157.8 cm???/min???m??? LV Diastolic Volume MOD 4C 113.2 cm??? LV Systolic Volume MOD 4C 63.4 cm??? LV Ejection Fraction MOD 4C 44.0 % LV Cardiac Index MOD 4C 1747.5 cm???/min???m??? LV Diastolic Length 4C 8.0 cm LV Systolic Length 4C 6.8 cm LV Diastolic Volume MOD 2C 108.4 cm??? LV Systolic Volume MOD 2C 39.0 cm??? LV Ejection Fraction MOD 2C 64.0 % LV Cardiac Index MOD 2C 2434.3 cm???/min???m??? LV Diastolic Length 2C 8.4 cm LV Systolic Length 2C 7.4 cm LA Volume 80.5 cm??? 18 - 58 / 22 - 52 cm??? LA Volume Index 33.6 cm???/m??? 16 - 28 cm???/m??? M-MODE Aortic Root Diameter MM 3.9 cm AV Cusp Separation MM 1.6 cm DOPPLER AV Peak Velocity 282.4 cm/s AV Peak Gradient 31.9 mmHg AV Mean Velocity 191.5 cm/s AV Mean Gradient 17.2 mmHg AV Velocity Time Integral 57.4 cm LVOT Peak Velocity 234.6 cm/s LVOT Peak Gradient 22.0 mmHg LVOT Velocity Time Integral 51.0 cm LVOT Stroke Volume 113.2 cm??? LVOT Stroke Volume Index 49.8 ml/m??? LVOT Cardiac Index 3968.3 cm???/min???m??? AV Area Cont Eq vti 2.0 cm??? AV Area Cont Eq pk 1.8 cm??? MV Area PHT 2.8 cm??? MV Deceleration Time 289.9 ms TR Peak Velocity 297.7 cm/s TR Peak Gradient 35.4 mmHg Right Ventricular Systolic Press 55.4 mmHg FINDINGS Left Ventricle Left ventricular ejection fraction is estimated at 55-60 %. Left ventricular cavity size normal. Moderate concentric left ventricular hypertrophy. No obvious regional wall motion abnormalities.Mildly increased left ventricular diastolic volume. Mildly increased left ventricular systolic volume. Right Ventricle Normal right ventricular size. Severe pulmonary hypertension. Right ventricular systolic pressure estimated at 55 mm hg. Right Atrium Normal right atrial size. No right atrial thrombus or mass seen. Left Atrium Mildly increased left atrial diameter. Mildly increased left atrial volume. Mildly increased left atrial area. No left atrial thrombus or mass present. Mitral Valve Mitral valve thickened. Mild mitral annular calcification. No evidence for mitral valve prolapse. No mitral stenosis. No mitral regurgitation. Aortic Valve Aortic valve sclerosis. Mild aortic stenosis with a peak gradient of 32 mmHg and a mean gradient of 17 mmHg. Tricuspid Valve Structurally normal tricuspid valve. Mild tricuspid regurgitation. Pulmonic Valve Pulmonic valve not well visualized. Pericardium No pericardial effusion. Aorta Mild aortic dilatation at the level of the sinuses of valsalva 39 mm CONCLUSIONS Normal LV systolic function Aortic sclerosis with mild to moderate stenosis and mean gradient of 17 mmHg Dilated aorta as described above Previewed by: Dr. Cleveland Bailey MD (Electronically Signed) Final Date: 08 May 2025 11:52
--- NOTE | 2025-05-08 12:29 | P.HPIM ---
History of Present Illness H&P Date: 05/08/25 History of present illness; 79-year-old lady with past medical history significant for hypertension, hyperlipidemia presented the ER because of shortness of breath. Patient stated that she was all right yesterday when she started noticing that she was getting short of breath. Shortness of breath was present on rest as with exertion. Patient also complaining of swelling of lower extremities. Patient also complaining of chest tightness at the time but denies any chest pain. There was complaint of wheezing. There was no complaint of orthopnea or PND. Patient denies any palpitation. There is no complaint of orthopnea or PND. Denies any nausea, vomiting abdominal pain. Patient denies any complaint of dizziness. There is no complaint of headache. Because of the symptoms, patient came to the ER Initial lab work done in the ER showed WC 6.32, hemoglobin 10.8, platelet count 258, sodium 130, potassium 4.2, BUN 16, creatinine 0.62, glucose 117, troponin 0.015 Influenza A not detected Influenza B not detected RSV not detected COVID-19 not detected EKG done in the ER showed heart rate of 84, no ST segment elevation or depression seen, no T-wave inversions seen. Chest x-ray done in the ER cardiomegaly, pulmonary congestion and bilateral pleural effusion. Patient admitted to internal medicine service REVIEW OF SYSTEMS: CONSTITUTIONAL: No fever, no malaise, no fatigue. HEENT: No recent visual problems or hearing problems. Denied any sore throat. CARDIOVASCULAR: As mentioned above PULMONARY: As mentioned above GASTROINTESTINAL: No diarrhea, no nausea, no vomiting, no abdominal pain. NEUROLOGICAL: No headaches, no weakness, no numbness. HEMATOLOGICAL: Denies any bleeding or petechiae. GENITOURINARY: Denies any burning micturition, frequency, or urgency. MUSCULOSKELETAL/RHEUMATOLOGICAL: Denies any joint pain, swelling, or any muscle pain. ENDOCRINE: Denies any polyuria or polydipsia. The rest of the 14-point review of systems is negative. PHYSICAL EXAMINATION: GENERAL: The patient is alert and oriented x3, not in any acute distress. Well developed, well nourished. HEENT: Pupils are round and equally reacting to light. EOMI. No scleral icterus. No conjunctival pallor. Normocephalic, atraumatic. No pharyngeal erythema. No thyromegaly. CARDIOVASCULAR: S1 and S2 present. No murmurs, rubs, or gallops. PULMONARY: coarse breath sound bilaterally, bilateral crackles noted ABDOMEN: Soft, nontender, nondistended, normoactive bowel sounds. No palpable o rganomegaly. MUSCULOSKELETAL: No joint swelling or deformity. EXTREMITIES: No cyanosis, clubbing, or pedal edema. NEUROLOGICAL: Gross neurological examination did not reveal any focal deficits. SKIN: No rashes. Assessment and plan Acute hypoxic respiratory failure Acute CHF exacerbation Persistent atrial fibrillation History of hypertension History of hyperlipidemia Monitor vital signs Monitor CBC Monitor CMP Continue telemetry monitoring Strict I's and O's Daily weights Start IV Lasix 40 every 12 Ordered 2D echo Ordered breathing treatments Resume Norvasc Resume Lipitor Consult cardio Consult pulmonology Labs and medication were reviewed.. Continue same treatment. Continue with sym ptomatic treatment. Resume home medication. Monitor labs and vitals. DVT and GI prophylaxis. Further recommendations as per clinical course of the patient Dictation was produced using [employer] dictation software. please excuse any grammatical, word or spelling errors. 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 Spinal stenosis, Sciatica History of Any Multi-Drug Resistant Organisms: None Reported Past Surgical History: Back Surgery Past Psychological History: No Psychological Hx Reported Smoking Status: Never smoker Past Alcohol Use History: None Reported Past Drug Use History: None Reported Medications and Allergies Home Medications Medication Instructions Recorded Confirmed Type Aspirin EC [Ecotrin Low Dose] 81 mg PO DAILY 05/07/25 05/07/25 History Aspirin [Aspirin EC] 1,000 mg PO Q4-6H PRN 05/07/25 05/07/25 History Atorvastatin [Lipitor] 40 mg PO DAILY 05/07/25 05/07/25 History Carbamide Peroxide [Debrox Otic] 1 - 5 drops BOTH EARS DAILY PRN 05/07/25 05/07/25 History Cyanocobalamin (Vitamin B-12) 1,000 mcg PO DAILY 05/07/25 05/07/25 History [Vitamin B-12] DULoxetine HCL [Cymbalta] 20 mg PO DAILY 05/07/25 05/07/25 History Ferrous Sulfate [Feosol] 325 mg PO DAILY 05/07/25 05/07/25 History HYDROcodone/APAP 5-325MG [[place] 1 tab PO Q6H 05/07/25 05/07/25 History 5-325] Pantoprazole Sodium [Protonix] 20 mg PO DAILY 05/07/25 05/07/25 History Propylene Glycol/Peg 400 [Systane 1 - 2 drops BOTH EYES QID PRN 05/07/25 05/07/25 History Ultra 0.4-0.3% Eye Drp] Sennosides [Senokot] 8.6 mg PO DAILY 05/07/25 05/07/25 History amLODIPine [Norvasc] 10 mg PO DAILY 05/07/25 05/07/25 History Allergies Allergy/AdvReac Type Severity Reaction Status Date / Time lisinopril Allergy Anaphylaxis Verified 05/07/25 20:22 metformin AdvReac kidneys Verified 05/07/25 20:22 shut down methotrexate AdvReac Rapid Verified 05/07/25 20:22 Heart Rate Physical Exam Vitals: Vital Signs Temp Pulse Pulse Resp BP BP BP 05/08/25 07:31 97.7 F 84 17 138/70 05/08/25 00:48 76 17 05/08/25 00:36 98.6 F 76 17 151/84 05/07/25 23:00 80 16 171/79 05/07/25 21:28 79 12 05/07/25 20:00 97 20 125/69 05/07/25 18:45 89 20 149/81 05/07/25 18:44 78 05/07/25 18:36 76 05/07/25 16:33 82 22 133/70 05/07/25 16:24 98.7 F 79 24 137/83 Pulse Ox 05/08/25 07:31 94 L 05/08/25 00:48 05/08/25 00:36 95 05/07/25 23:00 94 L 05/07/25 21:28 95 05/07/25 20:00 94 L 05/07/25 18:45 93 L 05/07/25 18:44 05/07/25 18:36 05/07/25 16:33 95 05/07/25 16:24 96 Intake and Output 05/07/25 05/08/25 05/08/25 22:59 06:59 14:59 Output Total 850 200 Balance -850 -200 Output: Urine 850 200 Other: Voiding Method External Catheter Weight 113.398 kg 85 kg Results CBC & Chem 7: 05/07/25 16:51 05/07/25 16:51 Labs: Abnormal Lab Results - Last 24 Hours (Table) 05/07/25 05/07/25 05/07/25 Range/Units 16:51 16:51 16:51 RBC 3.45 L (4.10-5.20) 10*6/uL Hgb 10.8 L (12.0-15.0) g/dL Hct 34.5 L (37.2-46.3) % MCV 100.0 H (80.0-97.0) fL MCHC 31.3 L (32.0-37.0) g/dL MPV 8.3 L (9.5-12.2) fL APTT 21.4 L (22.0-30.0) sec Chloride 111 H (98-107) mmol/L Glucose 117 H (74-99) mg/dL POC Glucose (mg/dL) (70-110) mg/dL Total Protein 5.6 L (6.3-8.2) g/dL Albumin 3.4 L (3.5-5.0) g/dL 05/08/25 Range/Units 06:08 RBC (4.10-5.20) 10*6/uL Hgb (12.0-15.0) g/dL Hct (37.2-46.3) % MCV (80.0-97.0) fL MCHC (32.0-37.0) g/dL MPV (9.5-12.2) fL APTT (22.0-30.0) sec Chloride (98-107) mmol/L Glucose (74-99) mg/dL POC Glucose (mg/dL) 130 H (70-110) mg/dL Total Protein (6.3-8.2) g/dL Albumin (3.5-5.0) g/dL
[2025-05-08 12:47] LABS: Basophils # (A) 0.05 10*3/uL (0.00-0.10); Basophils % (A) 0.8 %; Eosinophils # (A) 0.23 10*3/uL (0.04-0.35); Eosinophils % (A) 3.9 %; HCT 38.5 % (37.2-46.3); HGB 12.2 g/dL (12.0-15.0); Lymphocytes # (A) 0.88 10*3/uL (0.90-5.00); Lymphocytes % (A) 14.9 %; MCH 32.3 pg (27.0-32.0); MCHC 31.7 g/dL (32.0-37.0); MCV 101.9 fL (80.0-97.0); Monocytes # (A) 0.53 10*3/uL (0.20-1.00); Monocytes % (A) 9.0 %; Neutrophils # (A) 4.17 10*3/uL (1.80-7.70); Neutrophils % (A) 70.9 %; Platelet Count 287 10*3/uL (140-440); RBC 3.78 10*6/uL (4.10-5.20); RDW 14.5 % (11.5-14.5); WBC 5.89 10*3/uL (4.50-10.00)
[2025-05-08 12:58] LABS: INR 1.0 (<1.2); Partial Thromboplastin Time 34.9 sec (22.0-30.0); Prothrombin Time 11.0 sec (10.0-12.5)
[2025-05-08] MEDS: IPRATROPIUM-ALBUTEROL 3 ML NEB INHALATION SCH (13:37)
--- NOTE | 2025-05-08 15:21 | CT ---
EXAMINATION TYPE: CT chest angio for PE DATE OF EXAM: 05/08/2025 COMPARISON: None CLINICAL INDICATION: Female, 79 years old with history of pulmonary HTN; PHH, suspected pe, SOB or PA IN TECHNIQUE: Ct angiogram of the chest performed with with IV Contrast, patient injected with 100 mL of Isovue 370 . MIP images are created and reviewed. CT DLP: 880.[address] CTDI: mGy Automated exposure control for dose reduction was used. FINDINGS: There are no filling defects within the pulmonary arterial circulation to suggest pulmonary emboli. There is a moderate right pleural effusion and a small left pleural effusion. Mild adjacent lung cons olidation in both lower lobes either compressive atelectasis or pneumonic infiltrates. There is no suspicious lung mass. There is no mediastinal or hilar adenopathy. There is the main pulmonary artery is dilated to 3.9 cm which can be associated with pulmonary hypertension. There is no thoracic aortic aneurysm Limited scanning through the upper abdomen reveals no gross abnormality. IMPRESSION: 1. No evidence of pulmonary embolism. 2. Small left pleural effusion and moderate right pleural effusion. 3. Bibasal infiltrates consistent with mild compressive atelectasis. Pneumonia not excluded. 4. Markedly dilated main pulmonary artery which can be associated with pulmonary hypertension. [facility], , 05/08/2025 3:19 PM
[2025-05-08 16:16] LABS: Glucose,Whole Blood 187 mg/dL (70-110)
[2025-05-08] MEDS: HEPARIN SODIUM 1,000 UN/ML (10ML VL) IV PRN (18:16)
[2025-05-08 20:30] LABS: Glucose,Whole Blood 172 mg/dL (70-110)
[2025-05-09 00:24] LABS: INR 1.0 (<1.2); Prothrombin Time 10.8 sec (10.0-12.5)
--- NOTE | 2025-05-09 01:55 | P.CNPUL ---
History of Present Illness Consult date: 05/09/25 Requesting physician: Tyron Ball Chief complaint: Shortness of breath History of present illness: Patient is an 79-year-old male female with past medical history significant for atrial fibrillation, hypertension, hyperlipidemia. Her primary care provider is Dr. Albright. Presented to emergency department back on April, with complaints of shortness of breath and chest tightness. Workup in the ED including a chest x-ray showing cardiomegaly, pulmonary vascular congestion, bilateral pleural effusions. A follow-up chest CT angiogram did not show any evidence of pulmonary embolism. Redemonstration of small left pleural effusion and moderate right-sided pleural effusion with associated atelectasis. Dilated main pulmonary artery, suggestive of pulmonary hypertension. Echocardiogram estimating a left ventricular ejection fraction of 55 to 60% with moderate concentric LVH, and mild to moderate aortic stenosis with a mean gradient of 17 mmHg. RVSP 55.4. EKG: Atrial fibrillation with controlled ventricular response, rate 84 bpm, no acute ischemic changes. She has been started on IV heparin by cardiology. Also, Lasix 40 mg twice daily. Patient also previously thought to have an underlying COPD exacerbation. She was started on DuoNebs [id number], IV Solu-Medrol 40 mg every 6 hours. CBC unremarkable. CMP also unremarkable, electrolytes WDL, creatinine 0.62, glucose 117. Troponin troponins 0.015, 0.017, and 0.015 respectively. NT proBNP mildly elevated at 1730. Viral 4 Plex negative for influenza A/B, RSV, COVID. Patient currently being seen on the general medical floor. Currently on 4 L/min nasal cannula. She states that she has had increased work of breathing with chest tightness and occasional wheezing for approximately 1 month. She did go to [facility] where she was provided with a steroid shot, steroid tablets, and albuterol treatment. She states this did help initially, then her breathing deteriorated. Especially, over the last 48 hours. Experiencing severe dyspnea, now at rest and particularly when lying flat. Associated chest tightness and occasional wheezing. Denies any heart palpitations, lightheadedness or syncopal events, or lower extremity swelling. Denies any sick contacts. No fevers or chills. No significant cough or sputum production. No hemoptysis. No pleurisy. Denies history of COPD or asthma. Previously smoked 1 pack/day for many years, however, quit in 1987. She does not normally require home oxygen. She does remark on her chronic lower back pain. She has had previous back surgeries. Ambulates with walker. Has had difficulty getting around her home as of late, and plans to go to an assisted living facility. Vital signs are stable. Review of Systems REVIEW OF SYSTEMS: CONSTITUTIONAL: Admits to unquantified amount of weight gain EYES: Denies change in vision. EARS, NOSE, MOUTH, THROAT: Denies headaches, denies sore throat. CARDIOVASCULAR: See HPI RESPIRATORY: See HPI GASTROINTESTINAL: Denies change in appetite, abdominal pain, nausea and vomiting, or diarrhea GENITOURINARY: Denies hematuria, denies infections. MUSKULOSKELETAL: Denies pain, denies swelling. INTEGUMENTARY: Denies rash, denies eczema. NEUROLOGICAL: Denies recent memory loss, no recent seizure activity. PSYCHIATRIC: Denies anxiety, denies depression. 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 Spinal stenosis, Sciatica History of Any Multi-Drug Resistant Organisms: None Reported Past Surgical History: Back Surgery Past Psychological History: No Psychological Hx Reported Smoking Status: Never smoker Past Alcohol Use History: None Reported Past Drug Use History: None Reported Medications and Allergies Home Medications Medication Instructions Recorded Confirmed Type Aspirin EC [Ecotrin Low Dose] 81 mg PO DAILY 05/07/25 05/07/25 History Aspirin [Aspirin EC] 1,000 mg PO Q4-6H PRN 05/07/25 05/07/25 History Atorvastatin [Lipitor] 40 mg PO DAILY 05/07/25 05/07/25 History Carbamide Peroxide [Debrox Otic] 1 - 5 drops BOTH EARS DAILY PRN 05/07/25 05/07/25 History Cyanocobalamin (Vitamin B-12) 1,000 mcg PO DAILY 05/07/25 05/07/25 History [Vitamin B-12] DULoxetine HCL [Cymbalta] 20 mg PO DAILY 05/07/25 05/07/25 History Ferrous Sulfate [Feosol] 325 mg PO DAILY 05/07/25 05/07/25 History HYDROcodone/APAP 5-325MG [[place] 1 tab PO Q6H 05/07/25 05/07/25 History 5-325] Pantoprazole Sodium [Protonix] 20 mg PO DAILY 05/07/25 05/07/25 History Propylene Glycol/Peg 400 [Systane 1 - 2 drops BOTH EYES QID PRN 05/07/25 05/07/25 History Ultra 0.4-0.3% Eye Drp] Sennosides [Senokot] 8.6 mg PO DAILY 05/07/25 05/07/25 History amLODIPine [Norvasc] 10 mg PO DAILY 05/07/25 05/07/25 History Allergies Allergy/AdvReac Type Severity Reaction Status Date / Time lisinopril Allergy Anaphylaxis Verified 05/07/25 20:22 metformin AdvReac kidneys Verified 05/07/25 20:22 shut down methotrexate AdvReac Rapid Verified 05/07/25 20:22 Heart Rate Physical Exam Vitals: Vital Signs Temp Pulse Pulse Resp BP Pulse Ox 05/08/25 20:18 84 05/08/25 20:10 80 05/08/25 18:48 97.8 F 99 17 152/72 95 05/08/25 16:06 76 05/08/25 15:57 84 05/08/25 13:35 98.9 F 85 17 128/71 95 05/08/25 07:31 97.7 F 84 17 138/70 94 L Intake and Output 05/08/25 05/08/25 05/09/25 14:59 22:59 06:59 Intake Total 49.833 Output Total 850 1000 Balance -850 -950.167 Intake: Intake, IV Titration 49.833 Amount Heparin Sod,Pork in 0.45% 49.833 NaCl 25,000 unit In 0.45 % NaCl 1 250ml.bag @ 11. 765 UNITS/KG/HR 10 mls/hr IV .Q24H [facility] Rx#: [id number] Output: Urine 850 1000 Other: Voiding Method External Catheter Weight 113.3 kg GENERAL EXAM: Alert, 79-year-old obese female, comfortable in no apparent distress. HEAD: Normocephalic and atraumatic EYES: Normal reaction of pupils, equal size. NOSE: Clear with pink turbinates. THROAT: No erythema or exudates. NECK: No masses, no JVD. CHEST: No chest wall deformity. LUNGS: Equal air entry with diminished bibasilar lung sounds. On 4 L/min nasal cannula. No conversational dyspnea or accessory muscle use while at rest CVS: S1 and S2 normal with 2+ systolic murmur, irregular rhythm. No other extra heart sounds ABDOMEN: No hepatosplenomegaly, active bowel sounds, no guarding or rigidity. SPINE: No scoliosis or deformity SKIN: No rashes CENTRAL NERVOUS SYSTEM: No focal deficits, tone is normal in all 4 extremities. EXTREMITIES: There is no peripheral edema, clubbing, or cyanosis. Peripheral pulses are intact. Results - Laboratory Findings CBC and BMP: 05/09/25 04:16 05/09/25 04:16 PT/INR, D-dimer PT 10.8 sec (10.0-12.5) 05/08/25 23:38 INR 1.0 (<1.2) 05/08/25 23:38 Abnormal lab findings: Abnormal Labs 05/07/25 05/07/25 05/07/25 16:51 16:51 16:51 RBC 3.45 L Hgb 10.8 L Hct 34.5 L MCV 100.0 H MCH MCHC 31.3 L MPV 8.3 L Lymphocytes # APTT 21.4 L Chloride 111 H Glucose 117 H POC Glucose (mg/dL) Total Protein 5.6 L Albumin 3.4 L 05/08/25 05/08/25 05/08/25 06:08 11:42 12:03 RBC 3.78 L Hgb Hct MCV 101.9 H MCH 32.3 H MCHC 31.7 L MPV 8.6 L Lymphocytes # 0.88 L APTT Chloride Glucose POC Glucose (mg/dL) 130 H 116 H Total Protein Albumin 05/08/25 05/08/25 05/08/25 12:03 16:14 20:29 RBC Hgb Hct MCV MCH MCHC MPV Lymphocytes # APTT 34.9 H Chloride Glucose POC Glucose (mg/dL) 187 H 172 H Total Protein Albumin - Diagnostic Findings Chest x-ray: image reviewed CT scan - chest: image reviewed Assessment and Plan Assessment: Acute exacerbation of congestive heart failure, with preserved ejection fraction Bilateral pleural effusions, small left pleural effusion and moderate right- sided pleural effusion, continues on IV diuretics Possible COPD exacerbation Acute hypoxemic respiratory failure, currently on 4 L/min nasal cannula, secondary to above Mild to moderate aortic stenosis Severe pulmonary hypertension, suggested on echocardiogram, likely who group 2 Atrial fibrillation, with controlled ventricular response, currently on IV heparin Hypertension History of hyperlipidemia Remote history of tobacco use Chronic back pain History of depression Obesity, with a BMI of 36.9 kg/m Plan: Patient's medications, labs, imaging reviewed Continue supplemental oxygen, to maintain oxygen saturation of 92% or greater Continue IV diuretics 40 mg twice daily Continues on IV heparin per protocol Follow-up echocardiogram estimating a left ventricular ejection fraction of 55 to 60% with moderate concentric LVH, and mild to moderate aortic stenosis with a mean gradient of 17 mmHg. RVSP 55.4. A follow-up chest CT angiogram did not show any evidence of pulmonary embolism. Redemonstration of small left pleural effusion and moderate right-sided pleural effusion with associated atelectasis. Dilated main pulmonary artery, suggestive of pulmonary hypertension. Continue on DuoNebs [id number] and IV Solu-Medrol We will continue to follow I have personally seen and examined the patient, performed the documentation and the assessment and plan as written. Number of minutes spent on the visit:20 On 05/08/2025, the patient is being seen in the joint evaluation along with the nurse practitioner. This evaluation was done on 05/08/2025 and was dictated on 05/09/2025. In summary, the patient is experiencing worsening shortness of breath. The patient has acute hypoxic respiratory failure and the patient has a component of COPD and CHF exacerbation. Echocardiogram noted. CT of the chest was ordered and reviewed. Continue diuretics. Continue bronchodilators. Continue steroids. Reevaluate within next 24 hours. This evaluation was done and 33 minutes. Plan: This is a joint evaluation that was done along with the nurse practitioner. In fact, the patient was seen on 05/08/2025 and the note was dictated on 05/09/2025. Time with Patient: Greater than 30
[2025-05-09 02:39] LABS: INR 0.9 (<1.2); Partial Thromboplastin Time 40.4 sec (22.0-30.0); Prothrombin Time 10.5 sec (10.0-12.5)
[2025-05-09 06:15] LABS: Glucose,Whole Blood 175 mg/dL (70-110)
[2025-05-09 07:55] LABS: Basophils # (A) 0.01 X 10*3/uL (0.00-0.10); Basophils % (A) 0.3 %; Eosinophils # (A) 0 X 10*3/uL (0.04-0.35); Eosinophils % (A) 0 %; HCT 39.2 % (37.2-46.3); HGB 11.8 g/dL (12.0-15.0); Immature Grans, Automated 0.30 %; Lymphocytes # (A) 0.37 X 10*3/uL (0.90-5.00); Lymphocytes % (A) 10.0 %; MCH 30.3 pg (27.0-32.0); MCHC 30.1 g/dL (32.0-37.0); MCV 100.5 FL (80.0-97.0); Monocytes # (A) 0.07 X 10*3/uL (0.20-1.00); Monocytes % (A) 1.9 %; NRBC Per 100 WBC 0 X 10*3/uL (0.00-0.01); Neutrophils # (A) 3.23 X 10*3/uL (1.80-7.70); Neutrophils % (A) 87.5 %; Platelet Count 298 X 10*3/uL (140-440); RBC 3.90 X 10*6/uL (4.10-5.20); RDW 13.9 % (11.5-14.5); WBC 3.69 X 10*3/uL (4.50-10.00)
[2025-05-09 08:14] LABS: Anion Gap 12.10 mmol/L (4.00-12.00); BUN/Creat Ratio 28.67 Ratio (12.00-20.00); Blood Urea Nitrogen 17.2 mg/dL (9.0-27.0); Calcium 8.5 mg/dL (8.7-10.3); Carbon Dioxide 26.9 mmol/L (21.6-31.8); Chloride 104 mmol/L (96-109); Glucose 165 mg/dL (70-110); Potassium 4.4 mmol/L (3.5-5.5); Sodium 143 mmol/L (135-145)
[2025-05-09] MEDS: CYANOCOBALAMIN 500 MCG TAB PO SCH (09:08)
[2025-05-09] MEDS: APIXABAN 5 MG TAB PO SCH (10:14)
--- NOTE | 2025-05-09 10:38 | P.PN ---
Subjective HISTORY OF PRESENT ILLNESS: This is a 79-year-old female with a past medical history significant for normal coronary arteries, atrial fibrillation, hypertension, and hyperlipidemia. 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 We have been asked to see the patient in consultation for shortness of breath. Patient examined at the bedside. Patient presented to the hospital with a chief complaint of shortness of breath. The patient also was complaining of nausea this morning. She denies any lower extremity swelling. She does report having weight gain recently. She denies any known history of CHF. The patient does have a history of atrial fibrillation. She is not anticoagulated on an outpatient basis. She is unsure of the reason why. She denies any known history of bleeding issues. DIAGNOSTICS: - EKG reveals atrial fibrillation with controlled intraocular rate. - Chest xray cardiomegaly, pulmonary vascular congestion and bilateral pleural effusions. - Laboratory data: Troponin negative x 3. proBNP 1730. - Current home cardiac medications include amlodipine 10 mg daily, Lipitor 40 mg daily, aspirin 81 mg daily. - Most recent echocardiogram obtained in December 2004 revealing normal EF - Cardiac catheterization history: 2017 revealing normal coronary arteries 05/09/2025 Patient examined this morning the bedside. Patient currently denies chest pain or pressure. She denies shortness of breath. She reports pain in her legs. She remains on IV Lasix. She remains on 4 L nasal cannula to maintain oxygen saturations greater than 92%. Echocardiogram completed revealing ejection fraction 55 to 60%, severe pulmonary hypertension, mild to moderate aortic stenosis, mild tricuspid regurgitation PHYSICAL EXAM: VITAL SIGNS: Reviewed. GENERAL: Well-developed in no acute distress. HEENT: Head is normocephalic. Pupils are equal, round. Sclerae anicteric. Mucous membranes of the mouth are moist. Neck supple. No JVD or thyromegaly LUNGS: Respirations even and unlabored. Lungs with bilateral wheezing noted HEART: Irregular rate and rhythm. S1 and S2 heard. Systolic murmur noted ABDOMEN: Soft. Nondistended. Nontender. EXTREMITIES: Normal range of motion. No clubbing or cyanosis. Peripheral pulses intact. No lower extremity edema NEUROLOGIC: Awake and alert. Oriented x 3. ASSESSMENT: Shortness of breath Acute heart failure with preserved EF, repeat echo pending Persistent atrial fibrillation, not anticoagulated on outpatient basis for unknown reason Mild to moderate aortic stenosis Severe pulmonary hypertension Normal coronary arteries, per cath 2017 Hypertension Hyperlipidemia PLAN: Discontinue IV heparin. Begin Eliquis 5 mg twice a day Continue IV Lasix 40 mg every 12 hours Daily weights, accurate intake and output, monitoring of kidney function Further recommendations pending patient course Nurse practitioner note has been reviewed by physician. Signing provider agrees with the documented findings, assessment, and plan of care documented by JUNIOR SYSTEMS ADMINISTRATOR as a scribe. Objective - Vital Signs Vital signs: Vital Signs Temp 98.0 F 05/09/25 07:35 Pulse 88 05/09/25 08:32 Resp 96 H 05/09/25 07:35 BP 154/80 05/09/25 07:35 Pulse Ox 96 05/09/25 07:35 FiO2 Intake & Output 05/08/25 05/09/25 05/09/25 18:59 06:59 18:59 Intake Total 49.833 Output Total 1850 1900 Balance -1800.167 -1900 Weight 113.3 kg 59.5 kg 112.01 kg Intake: Intake, IV Titration 49.833 Amount Heparin Sod,Pork in 0.45% 49.833 NaCl 25,000 unit In 0.45 % NaCl 1 250ml.bag @ 11. 765 UNITS/KG/HR 10 mls/hr IV .Q24H [facility] Rx#: [id number] Output: Urine 1850 1900 Other: Voiding Method External Catheter External Catheter - Labs CBC & Chem 7: 05/09/25 04:16 05/09/25 04:16 Labs: Abnormal Lab Results - Last 24 Hours (Table) 05/08/25 05/08/25 05/08/25 Range/Units 11:42 12:03 12:03 WBC (4.50-10.00) X 10*3/uL RBC 3.78 L (4.10-5.20) 10*6/uL Hgb (12.0-15.0) g/dL MCV 101.9 H (80.0-97.0) fL MCH 32.3 H (27.0-32.0) pg MCHC 31.7 L (32.0-37.0) g/dL MPV 8.6 L (9.5-12.2) fL Lymphocytes # 0.88 L (0.90-5.00) 10*3/uL Monocytes # (0.20-1.00) X 10*3/uL Eosinophils # (0.04-0.35) X 10*3/uL APTT 34.9 H (22.0-30.0) sec Anion Gap (4.00-12.00) mmol/L BUN/Creatinine Ratio (12.00-20.00) Ratio Glucose (70-110) mg/dL POC Glucose (mg/dL) 116 H (70-110) mg/dL Calcium (8.7-10.3) mg/dL 05/08/25 05/08/25 05/09/25 Range/Units 16:14 20:29 01:48 WBC (4.50-10.00) X 10*3/uL RBC (4.10-5.20) 10*6/uL Hgb (12.0-15.0) g/dL MCV (80.0-97.0) fL MCH (27.0-32.0) pg MCHC (32.0-37.0) g/dL MPV (9.5-12.2) fL Lymphocytes # (0.90-5.00) 10*3/uL Monocytes # (0.20-1.00) X 10*3/uL Eosinophils # (0.04-0.35) X 10*3/uL APTT 40.4 H (22.0-30.0) sec Anion Gap (4.00-12.00) mmol/L BUN/Creatinine Ratio (12.00-20.00) Ratio Glucose (70-110) mg/dL POC Glucose (mg/dL) 187 H 172 H (70-110) mg/dL Calcium (8.7-10.3) mg/dL 05/09/25 05/09/25 05/09/25 Range/Units 04:16 04:16 06:13 WBC 3.69 L (4.50-10.00) X 10*3/uL RBC 3.90 L (4.10-5.20) 10*6/uL Hgb 11.8 L (12.0-15.0) g/dL MCV 100.5 H (80.0-97.0) fL MCH (27.0-32.0) pg MCHC 30.1 L (32.0-37.0) g/dL MPV 8.9 L (9.5-12.2) fL Lymphocytes # 0.37 L (0.90-5.00) 10*3/uL Monocytes # 0.07 L (0.20-1.00) X 10*3/uL Eosinophils # 0 L (0.04-0.35) X 10*3/uL APTT (22.0-30.0) sec Anion Gap 12.10 H (4.00-12.00) mmol/L BUN/Creatinine Ratio 28.67 H (12.00-20.00) Ratio Glucose 165 H (70-110) mg/dL POC Glucose (mg/dL) 175 H (70-110) mg/dL Calcium 8.5 L (8.7-10.3) mg/dL
[2025-05-09 11:29] LABS: Glucose,Whole Blood 201 mg/dL (70-110)
--- NOTE | 2025-05-09 14:05 | P.PN ---
Subjective Progress Note Date: 05/09/25 Patient is an 79-year-old male female with past medical history significant for atrial fibrillation, hypertension, hyperlipidemia. Her primary care provider is Dr. Albright. Presented to emergency department back on April, with complaints of shortness of breath and chest tightness. Workup in the ED including a chest x-ray showing cardiomegaly, pulmonary vascular congestion, bilateral pleural effusions. A follow-up chest CT angiogram did not show any evidence of pulmonary embolism. Redemonstration of small left pleural effusion and moderate right-sided pleural effusion with associated atelectasis. Dilated main pulmonary artery, suggestive of pulmonary hypertension. Echocardiogram estimating a left ventricular ejection fraction of 55 to 60% with moderate concentric LVH, and mild to moderate aortic stenosis with a mean gradient of 17 mmHg. RVSP 55.4. EKG: Atrial fibrillation with controlled ventricular response, rate 84 bpm, no acute ischemic changes. She has been started on IV heparin by cardiology. Also, Lasix 40 mg twice daily. Patient also previously thought to have an underlying COPD exacerbation. She was started on DuoNebs [id number], IV Solu-Medrol 40 mg every 6 hours. CBC unremarkable. CMP also unremarkable, electrolytes WDL, creatinine 0.62, glucose 117. Troponin troponins 0.015, 0.017, and 0.015 respectively. NT proBNP mildly elevated at 1730. Viral 4 Plex negative for influenza A/B, RSV, COVID. Patient currently being seen on the general medical floor. Currently on 4 L/min nasal cannula. She states that she has had increased work of breathing with chest tightness and occasional wheezing for approximately 1 month. She did go to [facility] where she was provided with a steroid shot, steroid tablets, and albuterol treatment. She states this did help initially, then her breathing deteriorated. Especially, over the last 48 hours. Experiencing severe dyspnea, now at rest and particularly when lying flat. Associated chest tightness and occasional wheezing. Denies any heart palpitations, lightheadedness or syncopal events, or lower extremity swelling. Denies any sick contacts. No fevers or chills. No significant cough or sputum production. No hemoptysis. No pleurisy. Denies history of COPD or asthma. Previously smoked 1 pack/day for many years, however, quit in 1987. She does not normally require home oxygen. She does remark on her chronic lower back pain. She has had previous back surgeries. Ambulates with walker. Has had difficulty getting around her home as of late, and plans to go to an assisted living facility. Vital signs are stable. On 05/09/2025, the patient is being seen for a follow-up. The patient is feeling better compared to yesterday. No significant shortness of breath on today's evaluation. Fluid balance is -3.7 L over the past 24 hours and the patient is producing excellent amount of urine output while being on Lasix 40 mg IV push every 12 hours. The patient is also on DuoNeb nebulizers [id number] and IV Solu-Medrol. Echocardiogram was completed yesterday and the patient was found to have a preserved LV function. The patient ejection fraction was 55 to 60% and she had moderate concentric LVH and no significant valvular abnormalities. The right ventricular systolic pressure was remaining to be around 55. Same time, the patient underwent a CT of the chest that showed no evidence of any pulmonary embolism. There was a small left-sided pleural effusion and moderate-sized right-sided pleural effusion. Some atelectatic change in lung bases along with compressive atelectasis. There is dilatation of the pulmonary artery consistent with pulmonary hypertension. Clinically improved and the patient is awake and alert without any signs of any CO2 narcosis and she is on 3 L of oxygen by nasal cannula with a pulse ox of 92%. Hemoglobin is 11.8 with a platelet count of 298. Electrolytes are normal. BUN 17 with a creatinine of 0.6. Blood sugars at 201. Objective - Vital Signs Vital signs: Vital Signs Temp 98.0 F 05/09/25 07:35 Pulse 80 05/09/25 12:20 Resp 18 05/09/25 08:00 BP 154/80 05/09/25 07:35 Pulse Ox 96 05/09/25 07:35 FiO2 Intake & Output 05/08/25 05/09/25 05/09/25 18:59 06:59 18:59 Intake Total 49.833 Output Total 1850 1900 Balance -1800.167 -1900 Weight 113.3 kg 59.5 kg 112.01 kg Intake: Intake, IV Titration 49.833 Amount Heparin Sod,Pork in 0.45% 49.833 NaCl 25,000 unit In 0.45 % NaCl 1 250ml.bag @ 11. 765 UNITS/KG/HR 10 mls/hr IV .Q24H [facility] Rx#: [id number] Output: Urine 1850 1900 Other: Voiding Method External Catheter External Catheter External Catheter - Exam GENERAL EXAM: Alert, 79-year-old obese female, comfortable in no apparent distress. HEAD: Normocephalic and atraumatic EYES: Normal reaction of pupils, equal size. NOSE: Clear with pink turbinates. THROAT: No erythema or exudates. NECK: No masses, no JVD. CHEST: No chest wall deformity. LUNGS: Equal air entry with diminished bibasilar lung sounds. On 3 L of O2 nasal cannula no conversational dyspnea or accessory muscle use while at rest CVS: S1 and S2 normal with 2+ systolic murmur, irregular rhythm. No other extra heart sounds ABDOMEN: No hepatosplenomegaly, active bowel sounds, no guarding or rigidity. SPINE: No scoliosis or deformity SKIN: No rashes CENTRAL NERVOUS SYSTEM: No focal deficits, tone is normal in all 4 extremities. EXTREMITIES: There is no peripheral edema, clubbing, or cyanosis. Peripheral pulses are intact. - Labs CBC & Chem 7: 05/09/25 04:16 05/09/25 04:16 Labs: Abnormal Lab Results - Last 24 Hours (Table) 05/08/25 05/08/25 05/08/25 Range/Units 12:03 12:03 16:14 WBC (4.50-10.00) X 10*3/uL RBC 3.78 L (4.10-5.20) 10*6/uL Hgb (12.0-15.0) g/dL MCV 101.9 H (80.0-97.0) fL MCH 32.3 H (27.0-32.0) pg MCHC 31.7 L (32.0-37.0) g/dL MPV 8.6 L (9.5-12.2) fL Lymphocytes # 0.88 L (0.90-5.00) 10*3/uL Monocytes # (0.20-1.00) X 10*3/uL Eosinophils # (0.04-0.35) X 10*3/uL APTT 34.9 H (22.0-30.0) sec Anion Gap (4.00-12.00) mmol/L BUN/Creatinine Ratio (12.00-20.00) Ratio Glucose (70-110) mg/dL POC Glucose (mg/dL) 187 H (70-110) mg/dL Calcium (8.7-10.3) mg/dL 05/08/25 05/09/25 05/09/25 Range/Units 20:29 01:48 04:16 WBC 3.69 L (4.50-10.00) X 10*3/uL RBC 3.90 L (4.10-5.20) 10*6/uL Hgb 11.8 L (12.0-15.0) g/dL MCV 100.5 H (80.0-97.0) fL MCH (27.0-32.0) pg MCHC 30.1 L (32.0-37.0) g/dL MPV 8.9 L (9.5-12.2) fL Lymphocytes # 0.37 L (0.90-5.00) 10*3/uL Monocytes # 0.07 L (0.20-1.00) X 10*3/uL Eosinophils # 0 L (0.04-0.35) X 10*3/uL APTT 40.4 H (22.0-30.0) sec Anion Gap (4.00-12.00) mmol/L BUN/Creatinine Ratio (12.00-20.00) Ratio Glucose (70-110) mg/dL POC Glucose (mg/dL) 172 H (70-110) mg/dL Calcium (8.7-10.3) mg/dL 05/09/25 05/09/25 05/09/25 Range/Units 04:16 06:13 11:28 WBC (4.50-10.00) X 10*3/uL RBC (4.10-5.20) 10*6/uL Hgb (12.0-15.0) g/dL MCV (80.0-97.0) fL MCH (27.0-32.0) pg MCHC (32.0-37.0) g/dL MPV (9.5-12.2) fL Lymphocytes # (0.90-5.00) 10*3/uL Monocytes # (0.20-1.00) X 10*3/uL Eosinophils # (0.04-0.35) X 10*3/uL APTT (22.0-30.0) sec Anion Gap 12.10 H (4.00-12.00) mmol/L BUN/Creatinine Ratio 28.67 H (12.00-20.00) Ratio Glucose 165 H (70-110) mg/dL POC Glucose (mg/dL) 175 H 201 H (70-110) mg/dL Calcium 8.5 L (8.7-10.3) mg/dL Assessment and Plan Plan: Acute exacerbation of chronic diastolic heart failure. Preserved function, concentric LVH Acute on chronic shortness of breath, improving and the patient responding to diuresis and bronchodilators and steroids. Bilateral pleural effusions, small left pleural effusion and moderate right- sided pleural effusion, continues on IV diuretics, fluid balance is negative Possible COPD exacerbation, improving Acute hypoxemic respiratory failure, currently on 3 L/min nasal cannula, secondary to above Moderately severe pulmonary hypertension, suggested on echocardiogram, likely who group 2 Atrial fibrillation, with controlled ventricular response, currently on anticoagulation with Eliquis Hypertension History of hyperlipidemia Remote history of tobacco use Chronic back pain History of depression Obesity, with a BMI of 36.9 kg/m Plan: Titrate oxygen flow and the patient is currently on 3 L of oxygen by nasal cannula Continue IV diuretics 40 mg twice daily Anticoagulation with Eliquis and IV heparin has been discontinued Follow-up echocardiogram estimating a left ventricular ejection fraction of 55 to 60% with moderate concentric LVH, and mild to moderate aortic stenosis with a mean gradient of [address] of the chest was noted. Bilateral pleural effusion. Compressive atelectatic changes in lung bases. Evidence of pulmonary arterial hypertension. No evidence of any pulmonary embolism. Continue on DuoNebs [id number] and IV Solu-Medrol We will continue to follow Time with Patient: Greater than 30
[2025-05-09 16:16] LABS: Glucose,Whole Blood 223 mg/dL (70-110)
[2025-05-09 20:10] LABS: Glucose,Whole Blood 227 mg/dL (70-110)
[2025-05-10 00:10] LABS: INR 0.9 (<1.2); Partial Thromboplastin Time 23.1 sec (22.0-30.0); Prothrombin Time 10.3 sec (10.0-12.5)
[2025-05-10 06:17] LABS: Glucose,Whole Blood 250 mg/dL (70-110)
[2025-05-10 09:34] LABS: BUN/Creat Ratio 44.43 Ratio (12.00-20.00); Blood Urea Nitrogen 31.1 mg/dL (9.0-27.0); Glucose 196 mg/dL (70-110)
[2025-05-10 09:35] LABS: Anion Gap 11.20 mmol/L (4.00-12.00); Calcium 8.5 mg/dL (8.7-10.3); Carbon Dioxide 26.8 mmol/L (21.6-31.8); Chloride 97 mmol/L (96-109); Potassium 4.2 mmol/L (3.5-5.5); Sodium 135 mmol/L (135-145)
[2025-05-10 11:12] LABS: Glucose,Whole Blood 253 mg/dL (70-110)
--- NOTE | 2025-05-10 11:36 | P.PN ---
Subjective Progress Note Date: 05/10/25 This is a 79-year-old female with a past medical history significant for normal coronary arteries, atrial fibrillation, hypertension, and hyperlipidemia. Patient does not follow with a easter bunny. We have been asked to see the patient in consultation for shortness of breath. Patient examined at the [facility]. Patient presented to the hospital with a chief complaint of shortness of breath. The patient also was complaining of nausea this morning. She denies any lower extremity swelling. She does report having weight gain recently. She denies any known history of CHF. The patient does have a history of atrial fibrillation. She is not anticoagulated on an outpatient basis. She is unsure of the reason why. She denies any known history of bleeding issues. DIAGNOSTICS: - EKG reveals atrial fibrillation with controlled intraocular rate. - Chest xray cardiomegaly, pulmonary vascular congestion and bilateral pleural effusions. - Laboratory data: Troponin negative x 3. proBNP 1730. - Current home cardiac medications include amlodipine 10 mg daily, Lipitor 40 mg daily, aspirin 81 mg daily. - Most recent echocardiogram obtained in December 2004 revealing normal EF - Cardiac catheterization history: 2017 revealing normal coronary arteries 05/10/2025 Patient was seen and examined resting comfortably in bed. She feels better than when she came in but is experiencing more shortness of breath and cough compared to yesterday. She was seen by pulmonary who recommend continued supplemental oxygen, DuoNebs [id number] and IV Solu-Medrol. Echocardiogram with Doppler study done 05/08/2025 showed normal LV systolic function with severe pulmonary hypertension, mild aortic stenosis and mild tricuspid regurgitation. She remains on IV Lasix 40 mg every 12 hours. Labs this morning showed stable renal function. She remains in atrial fibrillation with heart rate in the 80s and 90s. Blood pressure has been in the 140s to 150s systolic. Oxygen saturation 97% on 3 L via nasal cannula. PHYSICAL EXAM: VITAL SIGNS: Reviewed. GENERAL: Well-developed in no acute distress. HEENT: Head is normocephalic. Pupils are equal, round. Sclerae anicteric. Mucous membranes of the mouth are moist. Neck supple. No JVD or thyromegaly LUNGS: Respirations even and unlabored. Lungs with bilateral wheezing noted HEART: Irregular rate and rhythm. S1 and S2 heard. Systolic ejection murmur noted ABDOMEN: Soft. Nondistended. Nontender. EXTREMITIES: Normal range of motion. No clubbing or cyanosis. Peripheral pulses intact. No lower extremity edema NEUROLOGIC: Awake and alert. Oriented x 3. ASSESSMENT: Shortness of breath Acute heart failure with preserved EF, repeat echo pending Persistent atrial fibrillation, not anticoagulated on outpatient basis for unknown reason Mild to moderate aortic stenosis Severe pulmonary hypertension Normal coronary arteries, per cath 2017 Hypertension Hyperlipidemia PLAN: From cardiology's perspective we will repeat BNP. We will add carvedilol. Patient has anaphylactic response to lisinopril we will avoid KAREN inhibitors and ARB's. Will discontinue amlodipine. We will add hydralazine 25 mg p.o. twice daily and oral nitrate. Continue to monitor renal function and electrolytes. We will continue to follow the patient and provide further recommendations accordingly. COMPRESSOR TECHNICIAN note has been reviewed, I agree with a documented findings and plan of care. Patient was seen and examined. Objective - Vital Signs Vital signs: Vital Signs Temp 97.4 F L 05/10/25 07:34 Pulse 84 05/10/25 08:10 Resp 16 05/10/25 07:34 BP 151/79 05/10/25 07:34 Pulse Ox 97 05/10/25 08:00 FiO2 Intake & Output 05/09/25 05/10/25 05/10/25 18:59 06:59 18:59 Output Total 500 Balance -500 Weight 112.01 kg 103.5 kg Output: Urine 500 Other: Voiding Method External Catheter External Catheter - Labs CBC & Chem 7: 05/09/25 04:16 05/10/25 03:30 Labs: Abnormal Lab Results - Last 24 Hours (Table) 05/09/25 05/09/25 05/09/25 Range/Units 11:28 16:15 20:09 BUN (9.0-27.0) mg/dL BUN/Creatinine Ratio (12.00-20.00) Ratio Glucose (70-110) mg/dL POC Glucose (mg/dL) 201 H 223 H 227 H (70-110) mg/dL Calcium (8.7-10.3) mg/dL 05/10/25 05/10/25 Range/Units 03:30 06:15 BUN 31.1 H (9.0-27.0) mg/dL BUN/Creatinine Ratio 44.43 H (12.00-20.00) Ratio Glucose 196 H (70-110) mg/dL POC Glucose (mg/dL) 250 H (70-110) mg/dL Calcium 8.5 L (8.7-10.3) mg/dL
[2025-05-10] MEDS: ISOSORBIDE DINITRATE 20 MG TAB PO SCH (11:57)
[2025-05-10] MEDS: FUROSEMIDE 40 MG TAB PO SCH (15:42)
[2025-05-10 16:06] LABS: Glucose,Whole Blood 256 mg/dL (70-110)
--- NOTE | 2025-05-10 18:55 | P.PN ---
Subjective Progress Note Date: 05/09/25 79-year-old lady with past medical history significant for hypertension, hyperlipidemia presented the ER because of shortness of breath. Patient stated that she was all right yesterday when she started noticing that she was getting short of breath. Shortness of breath was present on rest as with exertion. Patient also complaining of swelling of lower extremities. Patient also complaining of chest tightness at the time but denies any chest pain. There was complaint of wheezing. There was no complaint of orthopnea or PND. Patient denies any palpitation. There is no complaint of orthopnea or PND. Denies any nausea, vomiting abdominal pain. Patient denies any complaint of dizziness. There is no complaint of headache. Because of the symptoms, patient came to the ER Initial lab work done in the ER showed WC 6.32, hemoglobin 10.8, platelet count 258, sodium 130, potassium 4.2, BUN 16, creatinine 0.62, glucose 117, troponin 0.015 Influenza A not detected Influenza B not detected RSV not detected COVID-19 not detected EKG done in the ER showed heart rate of 84, no ST segment elevation or depression seen, no T-wave inversions seen. Chest x-ray done in the ER cardiomegaly, pulmonary congestion and bilateral pleural effusion. Patient admitted to internal medicine service Objective - Vital Signs Vital signs: Vital Signs Temp 98.0 F 05/09/25 07:35 Pulse 88 05/09/25 08:32 Resp 96 H 05/09/25 07:35 BP 154/80 05/09/25 07:35 Pulse Ox 96 05/09/25 07:35 FiO2 Intake & Output 05/08/25 05/09/25 05/09/25 18:59 06:59 18:59 Intake Total 49.833 Output Total 185 1900 Balance -1800.167 -1900 Weight 113.3 kg 59.5 kg 112.01 kg Intake: Intake, IV Titration 49.833 Amount Heparin Sod,Pork in 0.45% 49.833 NaCl 25,000 unit In 0.45 % NaCl 1 250ml.bag @ 11. 765 UNITS/KG/HR 10 mls/hr IV .Q24H [facility] Rx#: [id number] Output: Urine 18490 Other: Voiding Method External Catheter External Catheter - Exam GENERAL: The patient is alert and oriented x3, not in any acute distress. Well developed, well nourished. HEENT: Pupils are round and equally reacting to light. EOMI. No scleral icterus. No conjunctival pallor. Normocephalic, atraumatic. No pharyngeal erythema. No thyromegaly. CARDIOVASCULAR: S1 and S2 present. No murmurs, rubs, or gallops. PULMONARY: coarse breath sound bilaterally, bilateral crackles noted ABDOMEN: Soft, nontender, nondistended, normoactive bowel sounds. No palpable organomegaly. MUSCULOSKELETAL: No joint swelling or deformity. EXTREMITIES: No cyanosis, clubbing, or pedal edema. NEUROLOGICAL: Gross neurological examination did not reveal any focal deficits. SKIN: No rashes. - Labs CBC & Chem 7: 05/09/25 04:16 05/10/25 03:30 Labs: Abnormal Lab Results - Last 24 Hours (Table) 05/08/25 05/08/25 05/08/25 Range/Units 11:42 12:03 12:03 WBC (4.50-10.00) X 10*3/uL RBC 3.78 L (4.10-5.20) 10*6/uL Hgb (12.0-15.0) g/dL MCV 101.9 H (80.0-97.0) fL MCH 32.3 H (27.0-32.0) pg MCHC 31.7 L (32.0-37.0) g/dL MPV 8.6 L (9.5-12.2) fL Lymphocytes # 0.88 L (0.90-5.00) 10*3/uL Monocytes # (0.20-1.00) X 10*3/uL Eosinophils # (0.04-0.35) X 10*3/uL APTT 34.9 H (22.0-30.0) sec Anion Gap (4.00-12.00) mmol/L BUN/Creatinine Ratio (12.00-20.00) Ratio Glucose (70-110) mg/dL POC Glucose (mg/dL) 116 H (70-110) mg/dL Calcium (8.7-10.3) mg/dL 05/08/25 05/08/25 05/09/25 Range/Units 16:14 20:29 01:48 WBC (4.50-10.00) X 10*3/uL RBC (4.10-5.20) 10*6/uL Hgb (12.0-15.0) g/dL MCV (80.0-97.0) fL MCH (27.0-32.0) pg MCHC (32.0-37.0) g/dL MPV (9.5-12.2) fL Lymphocytes # (0.90-5.00) 10*3/uL Monocytes # (0.20-1.00) X 10*3/uL Eosinophils # (0.04-0.35) X 10*3/uL APTT 40.4 H (22.0-30.0) sec Anion Gap (4.00-12.00) mmol/L BUN/Creatinine Ratio (12.00-20.00) Ratio Glucose (70-110) mg/dL POC Glucose (mg/dL) 187 H 172 H (70-110) mg/dL Calcium (8.7-10.3) mg/dL 05/09/25 05/09/25 05/09/25 Range/Units 04:16 04:16 06:13 WBC 3.69 L (4.50-10.00) X 10*3/uL RBC 3.90 L (4.10-5.20) 10*6/uL Hgb 11.8 L (12.0-15.0) g/dL MCV 100.5 H (80.0-97.0) fL MCH (27.0-32.0) pg MCHC 30.1 L (32.0-37.0) g/dL MPV 8.9 L (9.5-12.2) fL Lymphocytes # 0.37 L (0.90-5.00) 10*3/uL Monocytes # 0.07 L (0.20-1.00) X 10*3/uL Eosinophils # 0 L (0.04-0.35) X 10*3/uL APTT (22.0-30.0) sec Anion Gap 12.10 H (4.00-12.00) mmol/L BUN/Creatinine Ratio 28.67 H (12.00-20.00) Ratio Glucose 165 H (70-110) mg/dL POC Glucose (mg/dL) 175 H (70-110) mg/dL Calcium 8.5 L (8.7-10.3) mg/dL Assessment and Plan Assessment: Acute hypoxic respiratory failure Acute CHF exacerbation Persistent atrial fibrillation History of hypertension History of hyperlipidemia Monitor vital signs Monitor CBC Monitor CMP Continue telemetry monitoring Strict I's and O's Daily weights Start IV Lasix 40 every 12 Ordered 2D echo Ordered breathing treatments Resume Norvasc Resume Lipitor Consult cardio Consult pulmonology Labs and medication were reviewed.. Continue same treatment. Continue with symptomatic treatment. Resume home medication. Monitor labs and vitals. DVT and GI prophylaxis. Further recommendations as per clinical course of the patient
--- NOTE | 2025-05-10 19:00 | P.PN ---
Subjective Progress Note Date: 05/10/25 79-year-old lady with past medical history significant for hypertension, hyperlipidemia presented the ER because of shortness of breath. Patient stated that she was all right yesterday when she started noticing that she was getting short of breath. Shortness of breath was present on rest as with exertion. Patient also complaining of swelling of lower extremities. Patient also complaining of chest tightness at the time but denies any chest pain. There was complaint of wheezing. There was no complaint of orthopnea or PND. Patient denies any palpitation. There is no complaint of orthopnea or PND. Denies any nausea, vomiting abdominal pain. Patient denies any complaint of dizziness. There is no complaint of headache. Because of the symptoms, patient came to the ER Initial lab work done in the ER showed WC 6.32, hemoglobin 10.8, platelet count 258, sodium 130, potassium 4.2, BUN 16, creatinine 0.62, glucose 117, troponin 0.015 Influenza A not detected Influenza B not detected RSV not detected COVID-19 not detected EKG done in the ER showed heart rate of 84, no ST segment elevation or depression seen, no T-wave inversions seen. Chest x-ray done in the ER cardiomegaly, pulmonary congestion and bilateral pleural effusion. Patient admitted to internal medicine service 24-hour interval change 05/10/2025 Patient is seen and evaluated in room at bedside She feels better than when she came in but is experiencing more shortness of breath and cough compared to yesterday. She was seen by pulmonary who recommend continued supplemental oxygen, DuoNebs [id number] and IV Solu-Medrol. Echocardiogram with Doppler study done 05/08/2025 showed normal LV systolic function with severe pulmonary hypertension, mild aortic stenosis and mild tricuspid regurgitation. She remains on IV Lasix 40 mg every 12 hours. - Cardiology on board and recommending to repeat BNP; add Coreg; given anaphylactic response, lisinopril is going to be avoided; discontinue amlodi pine; patient was placed on hydralazine 25 mg twice daily along with oral nitrates Objective - Vital Signs Vital signs: Vital Signs Temp 97.4 F L 05/10/25 07:34 Pulse 84 05/10/25 11:16 Resp 16 05/10/25 07:34 BP 151/79 05/10/25 07:34 Pulse Ox 97 05/10/25 08:00 FiO2 Intake & Output 05/09/25 05/10/25 05/10/25 18:59 06:59 18:59 Output Total 500 Balance -500 Weight 112.01 kg 103.5 kg Output: Urine 500 Other: Voiding Method External Catheter External Catheter - Exam GENERAL: The patient is alert and oriented x3, not in any acute distress. Well developed, well nourished. HEENT: Pupils are round and equally reacting to light. EOMI. No scleral icterus. No conjunctival pallor. Normocephalic, atraumatic. No pharyngeal erythema. No thyromegaly. CARDIOVASCULAR: S1 and S2 present. No murmurs, rubs, or gallops. PULMONARY: coarse breath sound bilaterally, bilateral crackles noted ABDOMEN: Soft, nontender, nondistended, normoactive bowel sounds. No palpable organomegaly. MUSCULOSKELETAL: No joint swelling or deformity. EXTREMITIES: No cyanosis, clubbing, or pedal edema. NEUROLOGICAL: Gross neurological examination did not reveal any focal deficits. SKIN: No rashes. - Labs CBC & Chem 7: 05/09/25 04:16 05/10/25 03:30 Labs: Abnormal Lab Results - Last 24 Hours (Table) 05/09/25 05/09/25 05/10/25 Range/Units 16:15 20:09 03:30 BUN 31.1 H (9.0-27.0) mg/dL BUN/Creatinine Ratio 44.43 H (12.00-20.00) Ratio Glucose 196 H (70-110) mg/dL POC Glucose (mg/dL) 223 H 227 H (70-110) mg/dL Calcium 8.5 L (8.7-10.3) mg/dL 05/10/25 05/10/25 Range/Units 06:15 11:11 BUN (9.0-27.0) mg/dL BUN/Creatinine Ratio (12.00-20.00) Ratio Glucose (70-110) mg/dL POC Glucose (mg/dL) 250 H 253 H (70-110) mg/dL Calcium (8.7-10.3) mg/dL Assessment and Plan Assessment: Acute hypoxic respiratory failure Acute CHF exacerbation Persistent atrial fibrillation History of hypertension History of hyperlipidemia Monitor vital signs Monitor CBC Monitor CMP Continue telemetry monitoring Strict I's and O's Daily weights Start IV Lasix 40 every 12 Ordered 2D echo Ordered breathing treatments Resume Norvasc Resume Lipitor Consult cardio Consult pulmonology Labs and medication were reviewed.. Continue same treatment. Continue with symptomatic treatment. Resume home medication. Monitor labs and vitals. DVT and GI prophylaxis. Further recommendations as per clinical course of the patient
[2025-05-10 20:27] LABS: Glucose,Whole Blood 179 mg/dL (70-110)
--- NOTE | 2025-05-10 21:06 | P.PN ---
Subjective Progress Note Date: 05/10/25 Patient is an 79-year-old male female with past medical history significant for atrial fibrillation, hypertension, hyperlipidemia. Her primary care provider is Dr. Albright. Presented to emergency department back on April, with complaints of shortness of breath and chest tightness. Workup in the ED including a chest x-ray showing cardiomegaly, pulmonary vascular congestion, bilateral pleural effusions. A follow-up chest CT angiogram did not show any evidence of pulmonary embolism. Redemonstration of small left pleural effusion and moderate right-sided pleural effusion with associated atelectasis. Dilated main pulmonary artery, suggestive of pulmonary hypertension. Echocardiogram estimating a left ventricular ejection fraction of 55 to 60% with moderate concentric LVH, and mild to moderate aortic stenosis with a mean gradient of 17 mmHg. RVSP 55.4. EKG: Atrial fibrillation with controlled ventricular response, rate 84 bpm, no acute ischemic changes. She has been started on IV heparin by cardiology. Also, Lasix 40 mg twice daily. Patient also previously thought to have an underlying COPD exacerbation. She was started on DuoNebs [id number], IV Solu-Medrol 40 mg every 6 hours. CBC unremarkable. CMP also unremarkable, electrolytes WDL, creatinine 0.62, glucose 117. Troponin troponins 0.015, 0.017, and 0.015 respectively. NT proBNP mildly elevated at 1730. Viral 4 Plex negative for influenza A/B, RSV, COVID. Patient currently being seen on the general medical floor. Currently on 4 L/min nasal cannula. She states that she has had increased work of breathing with chest tightness and occasional wheezing for approximately 1 month. She did go to [facility] where she was provided with a steroid shot, steroid tablets, and albuterol treatment. She states this did help initially, then her breathing deteriorated. Especially, over the last 48 hours. Experiencing severe dyspnea, now at rest and particularly when lying flat. Associated chest tightness and occasional wheezing. Denies any heart palpitations, lightheadedness or syncopal events, or lower extremity swelling. Denies any sick contacts. No fevers or chills. No significant cough or sputum production. No hemoptysis. No pleurisy. Denies history of COPD or asthma. Previously smoked 1 pack/day for many years, however, quit in 1987. She does not normally require home oxygen. She does remark on her chronic lower back pain. She has had previous back surgeries. Ambulates with walker. Has had difficulty getting around her home as of late, and plans to go to an assisted living facility. Vital signs are stable. On 05/09/2025, the patient is being seen for a follow-up. The patient is feeling better compared to yesterday. No significant shortness of breath on today's evaluation. Fluid balance is -3.7 L over the past 24 hours and the patient is producing excellent amount of urine output while being on Lasix 40 mg IV push every 12 hours. The patient is also on DuoNeb nebulizers [id number] and IV Solu-Medrol. Echocardiogram was completed yesterday and the patient was found to have a preserved LV function. The patient ejection fraction was 55 to 60% and she had moderate concentric LVH and no significant valvular abnormalities. The right ventricular systolic pressure was remaining to be around 55. Same time, the patient underwent a CT of the chest that showed no evidence of any pulmonary embolism. There was a small left-sided pleural effusion and moderate-sized right-sided pleural effusion. Some atelectatic change in lung bases along with compressive atelectasis. There is dilatation of the pulmonary artery consistent with pulmonary hypertension. Clinically improved and the patient is awake and alert without any signs of any CO2 narcosis and she is on 3 L of oxygen by nasal cannula with a pulse ox of 92%. Hemoglobin is 11.8 with a platelet count of 298. Electrolytes are normal. BUN 17 with a creatinine of 0.6. Blood sugars at 201. On 05/10/2025, the patient is doing well. Calm and comfortable. Shortness of breath continues to improve and the patient is currently on room air oxygen. The patient is diuresing very well. The patient has been in negative fluid balance of 3.7 L over the past 24 hours. She is also on bronchodilators. She is on IV Solu-Medrol 40 mg every 6 hours. The BUN is at 31 with a creatinine of 0.7. Sodium level is 145 and potassium is at 4.2. Echocardiogram done on 05/08/2025 and the patient has a preserved LV function with diastolic heart failure. The patient also has moderate degree of pulm hypertension with a PA pressure of 55. No altered mentation. No other significant events overnight. Objective - Vital Signs Vital signs: Vital Signs Temp 97.4 F L 05/10/25 07:34 Pulse 84 05/10/25 11:16 Resp 16 05/10/25 07:34 BP 151/79 05/10/25 07:34 Pulse Ox 97 05/10/25 08:00 FiO2 Intake & Output 05/09/25 05/10/25 05/10/25 18:59 06:59 18:59 Output Total 500 Balance -500 Weight 112.01 kg 103.5 kg Output: Urine 500 Other: Voiding Method External Catheter External Catheter - Exam GENERAL EXAM: Alert, 79-year-old obese female, comfortable in no apparent distress. The patient is currently on room air oxygen. HEAD: Normocephalic and atraumatic EYES: Normal reaction of pupils, equal size. NOSE: Clear with pink turbinates. THROAT: No erythema or exudates. NECK: No masses, no JVD. CHEST: No chest wall deformity. LUNGS: Equal air entry with diminished bibasilar lung sounds. CVS: S1 and S2 normal with 2+ systolic murmur, irregular rhythm. No other extra heart sounds ABDOMEN: No hepatosplenomegaly, active bowel sounds, no guarding or rigidity. SPINE: No scoliosis or deformity SKIN: No rashes CENTRAL NERVOUS SYSTEM: No focal deficits, tone is normal in all 4 extremities. EXTREMITIES: There is no peripheral edema, clubbing, or cyanosis. Peripheral pulses are intact. - Labs CBC & Chem 7: 05/09/25 04:16 05/10/25 03:30 Labs: Abnormal Lab Results - Last 24 Hours (Table) 05/09/25 05/09/25 05/09/25 Range/Units 11:28 16:15 20:09 BUN (9.0-27.0) mg/dL BUN/Creatinine Ratio (12.00-20.00) Ratio Glucose (70-110) mg/dL POC Glucose (mg/dL) 201 H 223 H 227 H (70-110) mg/dL Calcium (8.7-10.3) mg/dL 05/10/25 05/10/25 05/10/25 Range/Units 03:30 06:15 11:11 BUN 31.1 H (9.0-27.0) mg/dL BUN/Creatinine Ratio 44.43 H (12.00-20.00) Ratio Glucose 196 H (70-110) mg/dL POC Glucose (mg/dL) 250 H 253 H (70-110) mg/dL Calcium 8.5 L (8.7-10.3) mg/dL Assessment and Plan Assessment: Acute exacerbation of congestive heart failure, with preserved ejection fraction, improving Bilateral pleural effusions, small left pleural effusion and moderate right- sided pleural effusion, continues on IV diuretics COPD exacerbation, improving Acute hypoxemic respiratory failure, currently on room air oxygen Mild to moderate aortic stenosis Severe pulmonary hypertension, suggested on echocardiogram, likely who group 2 Atrial fibrillation, with controlled ventricular response, currently on IV heparin Hypertension History of hyperlipidemia Remote history of tobacco use Chronic back pain History of depression Obesity, with a BMI of 36.9 kg/m Plan: Continue supplemental oxygen, to maintain oxygen saturation of 92% or greater, currently on room air Continue this patient oral Lasix 40 mg p.o. twice Follow-up echocardiogram estimating a left ventricular ejection fraction of 55 to 60% with moderate concentric LVH, and mild to moderate aortic stenosis with a mean gradient of 17 mmHg. RVSP 55.4. A follow-up chest CT angiogram did not show any evidence of pulmonary embolism. Redemonstration of small left pleural effusion and moderate right-sided pleural effusion with associated atelectasis. Dilated main pulmonary artery, suggestive of pulmonary hypertension. Continue on DuoNebs [id number] and IV Solu-Medrol We will continue to follow
[2025-05-11 06:03] LABS: Glucose,Whole Blood 200 mg/dL (70-110)
[2025-05-11 09:07] LABS: BUN/Creat Ratio 45.86 Ratio (12.00-20.00); Basophils # (A) 0 X 10*3/uL (0.00-0.10); Basophils % (A) 0 %; Blood Urea Nitrogen 32.1 mg/dL (9.0-27.0); Eosinophils # (A) 0 X 10*3/uL (0.04-0.35); Eosinophils % (A) 0 %; Glucose 205 mg/dL (70-110); HCT 35.1 % (37.2-46.3); HGB 10.9 g/dL (12.0-15.0); Immature Grans, Automated 0.40 %; Lymphocytes # (A) 0.48 X 10*3/uL (0.90-5.00); Lymphocytes % (A) 6.5 %; MCH 30.9 pg (27.0-32.0); MCHC 31.1 g/dL (32.0-37.0); MCV 99.4 FL (80.0-97.0); Monocytes # (A) 0.44 X 10*3/uL (0.20-1.00); Monocytes % (A) 6.0 %; NRBC Per 100 WBC 0 X 10*3/uL (0.00-0.01); Neutrophils # (A) 6.43 X 10*3/uL (1.80-7.70); Neutrophils % (A) 87.1 %; Platelet Count 295 X 10*3/uL (140-440); RBC 3.53 X 10*6/uL (4.10-5.20); RDW 13.7 % (11.5-14.5); WBC 7.38 X 10*3/uL (4.50-10.00)
[2025-05-11 09:08] LABS: Anion Gap 9.10 mmol/L (4.00-12.00); Calcium 8.3 mg/dL (8.7-10.3); Carbon Dioxide 27.9 mmol/L (21.6-31.8); Chloride 105 mmol/L (96-109); Potassium 4.9 mmol/L (3.5-5.5); Sodium 142 mmol/L (135-145)
--- NOTE | 2025-05-11 10:27 | P.PN ---
Subjective Progress Note Date: 05/11/25 This is a 79-year-old female with a past medical history significant for normal coronary arteries, atrial fibrillation, hypertension, and hyperlipidemia. 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 We have been asked to see the patient in consultation for shortness of breath. Patient examined at the [facility]. Patient presented to the hospital with a chief complaint of shortness of breath. The patient also was complaining of nausea this morning. She denies any lower extremity swelling. She does report having weight gain recently. She denies any known history of CHF. The patient does have a history of atrial fibrillation. She is not anticoagulated on an outpatient basis. She is unsure of the reason why. She denies any known history of bleeding issues. DIAGNOSTICS: - EKG reveals atrial fibrillation with controlled intraocular rate. - Chest xray cardiomegaly, pulmonary vascular congestion and bilateral pleural effusions. - Laboratory data: Troponin negative x 3. proBNP 1730. - Current home cardiac medications include amlodipine 10 mg daily, Lipitor 40 mg daily, aspirin 81 mg daily. - Most recent echocardiogram obtained in December 2004 revealing normal EF - Cardiac catheterization history: 2017 revealing normal coronary arteries 05/10/2025 Patient was seen and examined resting comfortably in bed. She feels better than when she came in but is experiencing more shortness of breath and cough compared to yesterday. She was seen by pulmonary who recommend continued supplemental oxygen, DuoNebs [id number] and IV Solu-Medrol. Echocardiogram with Doppler study done 05/08/2025 showed normal LV systolic function with severe pulmonary hypertension, mild aortic stenosis and mild tricuspid regurgitation. She remains on IV Lasix 40 mg every 12 hours. Labs this morning showed stable renal function. She remains in atrial fibrillation with heart rate in the 80s and 90s. Blood pressure has been in the 140s to 150s systolic. Oxygen saturation 97% on 3 L via nasal cannula. 05/11/2025 The patient was seen and examined resting comfortably in bed. Overall she is feeling a bit better today. She feels she is breathing easier today. Blood pressure is better controlled. Remains in A-fib with controlled ventricular response. Labs are stable PHYSICAL EXAM: VITAL SIGNS: Reviewed. GENERAL: Well-developed in no acute distress. HEENT: Head is normocephalic. Pupils are equal, round. Sclerae anicteric. Mucous membranes of the mouth are moist. Neck supple. No JVD or thyromegaly LUNGS: Respirations even and unlabored. Lungs with bilateral wheezing noted, less pronounced compared to yesterday HEART: Irregular rate and rhythm. S1 and S2 heard. Systolic ejection murmur no quan ABDOMEN: Soft. Nondistended. Nontender. EXTREMITIES: Normal range of motion. No clubbing or cyanosis. Peripheral pulses intact. No lower extremity edema NEUROLOGIC: Awake and alert. Oriented x 3. ASSESSMENT: Shortness of breath Acute heart failure with preserved EF, repeat echo pending Persistent atrial fibrillation, not anticoagulated on outpatient basis for unknown reason Mild to moderate aortic stenosis Severe pulmonary hypertension Normal coronary arteries, per cath 2017 Hypertension Hyperlipidemia PLAN: From cardiology's perspective we will discontinue aspirin. Continue to monitor renal function and electrolytes. We will continue to follow the patient and provide further recommendations accordingly. DIGITAL MARKETING PROJECT MANAGER note has been reviewed, I agree with a documented findings and plan of care. Patient was seen and examined. Objective - Vital Signs Vital signs: Vital Signs Temp 97.6 F 05/11/25 08:00 Pulse 78 05/11/25 08:16 Resp 14 05/11/25 10:00 BP 146/82 05/11/25 08:00 Pulse Ox 92 L 05/11/25 10:00 FiO2 Intake & Output 05/10/25 05/11/25 05/11/25 18:59 06:59 18:59 Output Total 1300 Balance -1300 Weight 98 kg Output: Urine 1300 Other: Voiding Method External Catheter External Catheter - Labs CBC & Chem 7: 05/11/25 06:20 05/11/25 06:20 Labs: Abnormal Lab Results - Last 24 Hours (Table) 05/10/25 05/10/25 05/10/25 Range/Units 03:30 11:11 16:04 RBC (4.10-5.20) X 10*6/uL Hgb (12.0-15.0) g/dL Hct (37.2-46.3) % MCV (80.0-97.0) FL MCHC (32.0-37.0) g/dL MPV (9.5-12.2) FL Lymphocytes # (0.90-5.00) X 10*3/uL Eosinophils # (0.04-0.35) X 10*3/uL BUN (9.0-27.0) mg/dL BUN/Creatinine Ratio (12.00-20.00) Ratio Glucose (70-110) mg/dL POC Glucose (mg/dL) 253 H 256 H (70-110) mg/dL Calcium (8.7-10.3) mg/dL NT-Pro-B Natriuret Pep 1923 H (0-450) pg/mL 05/10/25 05/11/25 05/11/25 Range/Units 20:26 06:02 06:20 RBC (4.10-5.20) X 10*6/uL Hgb (12.0-15.0) g/dL Hct (37.2-46.3) % MCV (80.0-97.0) FL MCHC (32.0-37.0) g/dL MPV (9.5-12.2) FL Lymphocytes # (0.90-5.00) X 10*3/uL Eosinophils # (0.04-0.35) X 10*3/uL BUN 32.1 H (9.0-27.0) mg/dL BUN/Creatinine Ratio 45.86 H (12.00-20.00) Ratio Glucose 205 H (70-110) mg/dL POC Glucose (mg/dL) 179 H 200 H (70-110) mg/dL Calcium 8.3 L (8.7-10.3) mg/dL NT-Pro-B Natriuret Pep (0-450) pg/mL 05/11/25 Range/Units 06:20 RBC 3.53 L (4.10-5.20) X 10*6/uL Hgb 10.9 L (12.0-15.0) g/dL Hct 35.1 L (37.2-46.3) % MCV 99.4 H (80.0-97.0) FL MCHC 31.1 L (32.0-37.0) g/dL MPV 8.7 L (9.5-12.2) FL Lymphocytes # 0.48 L (0.90-5.00) X 10*3/uL Eosinophils # 0 L (0.04-0.35) X 10*3/uL BUN (9.0-27.0) mg/dL BUN/Creatinine Ratio (12.00-20.00) Ratio Glucose (70-110) mg/dL POC Glucose (mg/dL) (70-110) mg/dL Calcium (8.7-10.3) mg/dL NT-Pro-B Natriuret Pep (0-450) pg/mL
[2025-05-11 11:20] LABS: Glucose,Whole Blood 203 mg/dL (70-110)
--- NOTE | 2025-05-11 12:42 | P.PN ---
Subjective Progress Note Date: 05/11/25 Patient is an 79-year-old male female with past medical history significant for atrial fibrillation, hypertension, hyperlipidemia. Her primary care provider is Dr. Albright. Presented to emergency department back on April, with complaints of shortness of breath and chest tightness. Workup in the ED including a chest x-ray showing cardiomegaly, pulmonary vascular congestion, bilateral pleural effusions. A follow-up chest CT angiogram did not show any evidence of pulmonary embolism. Redemonstration of small left pleural effusion and moderate right-sided pleural effusion with associated atelectasis. Dilated main pulmonary artery, suggestive of pulmonary hypertension. Echocardiogram estimating a left ventricular ejection fraction of 55 to 60% with moderate concentric LVH, and mild to moderate aortic stenosis with a mean gradient of 17 mmHg. RVSP 55.4. EKG: Atrial fibrillation with controlled ventricular response, rate 84 bpm, no acute ischemic changes. She has been started on IV heparin by cardiology. Also, Lasix 40 mg twice daily. Patient also previously thought to have an underlying COPD exacerbation. She was started on DuoNebs [id number], IV Solu-Medrol 40 mg every 6 hours. CBC unremarkable. CMP also unremarkable, electrolytes WDL, creatinine 0.62, glucose 117. Troponin troponins 0.015, 0.017, and 0.015 respectively. NT proBNP mildly elevated at 1730. Viral 4 Plex negative for influenza A/B, RSV, COVID. Patient currently being seen on the general medical floor. Currently on 4 L/min nasal cannula. She states that she has had increased work of breathing with chest tightness and occasional wheezing for approximately 1 month. She did go to [facility] where she was provided with a steroid shot, steroid tablets, and albuterol treatment. She states this did help initially, then her breathing deteriorated. Especially, over the last 48 hours. Experiencing severe dyspnea, now at rest and particularly when lying flat. Associated chest tightness and occasional wheezing. Denies any heart palpitations, lightheadedness or syncopal events, or lower extremity swelling. Denies any sick contacts. No fevers or chills. No significant cough or sputum production. No hemoptysis. No pleurisy. Denies history of COPD or asthma. Previously smoked 1 pack/day for many years, however, quit in 1987. She does not normally require home oxygen. She does remark on her chronic lower back pain. She has had previous back surgeries. Ambulates with walker. Has had difficulty getting around her home as of late, and plans to go to an assisted living facility. Vital signs are stable. On 05/09/2025, the patient is being seen for a follow-up. The patient is feeling better compared to yesterday. No significant shortness of breath on today's evaluation. Fluid balance is -3.7 L over the past 24 hours and the patient is producing excellent amount of urine output while being on Lasix 40 mg IV push every 12 hours. The patient is also on DuoNeb nebulizers [id number] and IV Solu-Medrol. Echocardiogram was completed yesterday and the patient was found to have a preserved LV function. The patient ejection fraction was 55 to 60% and she had moderate concentric LVH and no significant valvular abnormalities. The right ventricular systolic pressure was remaining to be around 55. Same time, the patient underwent a CT of the chest that showed no evidence of any pulmonary embolism. There was a small left-sided pleural effusion and moderate-sized right-sided pleural effusion. Some atelectatic change in lung bases along with compressive atelectasis. There is dilatation of the pulmonary artery consistent with pulmonary hypertension. Clinically improved and the patient is awake and alert without any signs of any CO2 narcosis and she is on 3 L of oxygen by nasal cannula with a pulse ox of 92%. Hemoglobin is 11.8 with a platelet count of 298. Electrolytes are normal. BUN 17 with a creatinine of 0.6. Blood sugars at 201. On 05/10/2025, the patient is doing well. Calm and comfortable. Shortness of breath continues to improve and the patient is currently on room air oxygen. The patient is diuresing very well. The patient has been in negative fluid balance of 3.7 L over the past 24 hours. She is also on bronchodilators. She is on IV Solu-Medrol 40 mg every 6 hours. The BUN is at 31 with a creatinine of 0.7. Sodium level is 145 and potassium is at 4.2. Echocardiogram done on 05/08/2025 and the patient has a preserved LV function with diastolic heart failure. The patient also has moderate degree of pulm hypertension with a PA pressure of 55. No altered mentation. No other significant events overnight. On 05/11/2025, the patient is being seen for a follow-up. Doing well. No specific complaints. She remains on room air oxygen. The patient has been diuresed adequately and the patient is currently off diuretics. Less short of breath. Less bronchospastic and wheezy. Remains on IV Solu-Medrol and this will be transitioned to prednisone burst taper. Remains on anticoagulation with Eliquis. Receiving albuterol nebulizer treatments. No other significant events overnight. The white cell count at 7.3 with a heme of 10.9 and platelet count 295. BUN is 32 with a creatinine 0.7. Sodium levels at 142. Fluid balance is -1.3 L over the past 24 hours. Objective - Vital Signs Vital signs: Vital Signs Temp 97.6 F 05/11/25 08:00 Pulse 78 05/11/25 08:16 Resp 16 05/11/25 08:16 BP 146/82 05/11/25 08:00 Pulse Ox 98 05/11/25 08:09 FiO2 Intake & Output 05/10/25 05/11/25 05/11/25 18:59 06:59 18:59 Output Total 1300 Balance -1300 Weight 98 kg Output: Urine 1300 Other: Voiding Method External Catheter - Exam GENERAL EXAM: Alert, 79-year-old obese female, comfortable in no apparent distress. The patient is currently on room air oxygen. HEAD: Normocephalic and atraumatic EYES: Normal reaction of pupils, equal size. NOSE: Clear with pink turbinates. THROAT: No erythema or exudates. NECK: No masses, no JVD. CHEST: No chest wall deformity. LUNGS: Equal air entry with diminished bibasilar lung sounds. CVS: S1 and S2 normal with 2+ systolic murmur, irregular rhythm. No other extra heart sounds ABDOMEN: No hepatosplenomegaly, active bowel sounds, no guarding or rigidity. SPINE: No scoliosis or deformity SKIN: No rashes CENTRAL NERVOUS SYSTEM: No focal deficits, tone is normal in all 4 extremities. EXTREMITIES: There is no peripheral edema, clubbing, or cyanosis. Peripheral pulses are intact. - Labs CBC & Chem 7: 05/11/25 06:20 05/11/25 06:20 Labs: Abnormal Lab Results - Last 24 Hours (Table) 05/10/25 05/10/25 05/10/25 Range/Units 03:30 03:30 11:11 BUN 31.1 H (9.0-27.0) mg/dL BUN/Creatinine Ratio 44.43 H (12.00-20.00) Ratio Glucose 196 H (70-110) mg/dL POC Glucose (mg/dL) 253 H (70-110) mg/dL Calcium 8.5 L (8.7-10.3) mg/dL NT-Pro-B Natriuret Pep 1923 H (0-450) pg/mL 05/10/25 05/10/25 05/11/25 Range/Units 16:04 20:26 06:02 BUN (9.0-27.0) mg/dL BUN/Creatinine Ratio (12.00-20.00) Ratio Glucose (70-110) mg/dL POC Glucose (mg/dL) 256 H 179 H 200 H (70-110) mg/dL Calcium (8.7-10.3) mg/dL NT-Pro-B Natriuret Pep (0-450) pg/mL Assessment and Plan Assessment: Acute exacerbation of congestive heart failure, with preserved ejection fraction, improved. The patient has been diuresing adequately. Bilateral pleural effusions, small left pleural effusion and moderate right- sided pleural effusion, currently on oral Lasix COPD exacerbation, improving Acute hypoxemic respiratory failure, currently on room air oxygen Mild to moderate aortic stenosis Severe pulmonary hypertension, suggested on echocardiogram, likely who group 2 Atrial fibrillation, with controlled ventricular response, currently on IV heparin Hypertension History of hyperlipidemia Remote history of tobacco use Chronic back pain History of depression Obesity, with a BMI of 36.9 kg/m Plan: Continue supplemental oxygen, to maintain oxygen saturation of 92% or greater, currently on room air Continue this patient oral Lasix 40 mg p.o. twice Follow-up echocardiogram estimating a left ventricular ejection fraction of 55 to 60% with moderate concentric LVH, and mild to moderate aortic stenosis with a mean gradient of 17 mmHg. RVSP 55.4. A follow-up chest CT angiogram did not show any evidence of pulmonary embolism. Redemonstration of small left pleural effusion and moderate right-sided pleural effusion with associated atelectasis. Dilated main pulmonary artery, suggestive of pulmonary hypertension. Continue on DuoNebs [id number] Stopped IV Solu-Medrol start the patient on prednisone burst taper Will likely go home. Either today or tomorrow
[2025-05-11] MEDS: predniSONE 20 MG TAB PO SCH (13:04)
[2025-05-11 16:29] LABS: Glucose,Whole Blood 238 mg/dL (70-110)
[2025-05-11] MEDS: ALBUTEROL NEBULIZED 2.5 MG/3 ML INHALATION PRN (20:07)
[2025-05-11 20:09] LABS: Glucose,Whole Blood 285 mg/dL (70-110)
[2025-05-12 06:22] LABS: Glucose,Whole Blood 188 mg/dL (70-110)
[2025-05-12 07:47] LABS: Basophils # (A) 0 X 10*3/uL (0.00-0.10); Basophils % (A) 0 %; Eosinophils # (A) 0 X 10*3/uL (0.04-0.35); Eosinophils % (A) 0 %; HCT 37.4 % (37.2-46.3); HGB 11.6 g/dL (12.0-15.0); Immature Grans, Automated 0.70 %; Lymphocytes # (A) 0.66 X 10*3/uL (0.90-5.00); Lymphocytes % (A) 9.6 %; MCH 30.9 pg (27.0-32.0); MCHC 31.0 g/dL (32.0-37.0); MCV 99.5 FL (80.0-97.0); Monocytes # (A) 0.96 X 10*3/uL (0.20-1.00); Monocytes % (A) 14.0 %; NRBC Per 100 WBC 0 X 10*3/uL (0.00-0.01); Neutrophils # (A) 5.18 X 10*3/uL (1.80-7.70); Neutrophils % (A) 75.7 %; Platelet Count 332 X 10*3/uL (140-440); RBC 3.76 X 10*6/uL (4.10-5.20); RDW 13.5 % (11.5-14.5); WBC 6.85 X 10*3/uL (4.50-10.00)
[2025-05-12 07:59] LABS: BUN/Creat Ratio 48.86 Ratio (12.00-20.00); Blood Urea Nitrogen 34.2 mg/dL (9.0-27.0); Glucose 226 mg/dL (70-110)
[2025-05-12 08:00] LABS: Anion Gap 9.80 mmol/L (4.00-12.00); Calcium 8.4 mg/dL (8.7-10.3); Carbon Dioxide 28.2 mmol/L (21.6-31.8); Chloride 101 mmol/L (96-109); Potassium 4.6 mmol/L (3.5-5.5); Sodium 139 mmol/L (135-145)
--- NOTE | 2025-05-12 10:38 | XR ---
EXAMINATION TYPE: XR chest 1V portable DATE OF EXAM: 05/12/2025 10:26 AM COMPARISON: 05/07/2025 CLINICAL INDICATION: Female, 79 years old with history of CHF, , FINDINGS: Heart mildly enlarged. Mild diffuse interstitial density. No reina consolidation or pleural effusion. Advanced degenerative change of both glenohumeral joints. IMPRESSION: CHF with pulmonary vascular congestion. [facility], Workstation: [facility], 05/12/2025 10:36 AM
[2025-05-12 11:10] LABS: Glucose,Whole Blood 177 mg/dL (70-110)
--- NOTE | 2025-05-12 12:11 | P.PN ---
Subjective Progress Note Date: 05/12/25 Patient is an 79-year-old male female with past medical history significant for atrial fibrillation, hypertension, hyperlipidemia. Her primary care provider is Dr. Albright. Presented to emergency department back on April, with complaints of shortness of breath and chest tightness. Workup in the ED including a chest x-ray showing cardiomegaly, pulmonary vascular congestion, bilateral pleural effusions. A follow-up chest CT angiogram did not show any evidence of pulmonary embolism. Redemonstration of small left pleural effusion and moderate right-sided pleural effusion with associated atelectasis. Dilated main pulmonary artery, suggestive of pulmonary hypertension. Echocardiogram estimating a left ventricular ejection fraction of 55 to 60% with moderate concentric LVH, and mild to moderate aortic stenosis with a mean gradient of 17 mmHg. RVSP 55.4. EKG: Atrial fibrillation with controlled ventricular response, rate 84 bpm, no acute ischemic changes. She has been started on IV heparin by cardiology. Also, Lasix 40 mg twice daily. Patient also previously thought to have an underlying COPD exacerbation. She was started on DuoNebs [id number], IV Solu-Medrol 40 mg every 6 hours. CBC unremarkable. CMP also unremarkable, electrolytes WDL, creatinine 0.62, glucose 117. Troponin troponins 0.015, 0.017, and 0.015 respectively. NT proBNP mildly elevated at 1730. Viral 4 Plex negative for influenza A/B, RSV, COVID. Patient currently being seen on the general medical floor. Currently on 4 L/min nasal cannula. She states that she has had increased work of breathing with chest tightness and occasional wheezing for approximately 1 month. She did go to [facility] where she was provided with a steroid shot, steroid tablets, and albuterol treatment. She states this did help initially, then her breathing deteriorated. Especially, over the last 48 hours. Experiencing severe dyspnea, now at rest and particularly when lying flat. Associated chest tightness and occasional wheezing. Denies any heart palpitations, lightheadedness or syncopal events, or lower extremity swelling. Denies any sick contacts. No fevers or chills. No significant cough or sputum production. No hemoptysis. No pleurisy. Denies history of COPD or asthma. Previously smoked 1 pack/day for many years, however, quit in 1987. She does not normally require home oxygen. She does remark on her chronic lower back pain. She has had previous back surgeries. Ambulates with walker. Has had difficulty getting around her home as of late, and plans to go to an assisted living facility. Vital signs are stable. On 05/09/2025, the patient is being seen for a follow-up. The patient is feeling better compared to yesterday. No significant shortness of breath on today's evaluation. Fluid balance is -3.7 L over the past 24 hours and the patient is producing excellent amount of urine output while being on Lasix 40 mg IV push every 12 hours. The patient is also on DuoNeb nebulizers [id number] and IV Solu-Medrol. Echocardiogram was completed yesterday and the patient was found to have a preserved LV function. The patient ejection fraction was 55 to 60% and she had moderate concentric LVH and no significant valvular abnormalities. The right ventricular systolic pressure was remaining to be around 55. Same time, the patient underwent a CT of the chest that showed no evidence of any pulmonary embolism. There was a small left-sided pleural effusion and moderate-sized right-sided pleural effusion. Some atelectatic change in lung bases along with compressive atelectasis. There is dilatation of the pulmonary artery consistent with pulmonary hypertension. Clinically improved and the patient is awake and alert without any signs of any CO2 narcosis and she is on 3 L of oxygen by nasal cannula with a pulse ox of 92%. Hemoglobin is 11.8 with a platelet count of 298. Electrolytes are normal. BUN 17 with a creatinine of 0.6. Blood sugars at 201. On 05/10/2025, the patient is doing well. Calm and comfortable. Shortness of breath continues to improve and the patient is currently on room air oxygen. The patient is diuresing very well. The patient has been in negative fluid balance of 3.7 L over the past 24 hours. She is also on bronchodilators. She is on IV Solu-Medrol 40 mg every 6 hours. The BUN is at 31 with a creatinine of 0.7. Sodium level is 145 and potassium is at 4.2. Echocardiogram done on 05/08/2025 and the patient has a preserved LV function with diastolic heart failure. The patient also has moderate degree of pulm hypertension with a PA pressure of 55. No altered mentation. No other significant events overnight. On 05/11/2025, the patient is being seen for a follow-up. Doing well. No specific complaints. She remains on room air oxygen. The patient has been diuresed adequately and the patient is currently off diuretics. Less short of breath. Less bronchospastic and wheezy. Remains on IV Solu-Medrol and this will be transitioned to prednisone burst taper. Remains on anticoagulation with Eliquis. Receiving albuterol nebulizer treatments. No other significant events overnight. The white cell count at 7.3 with a heme of 10.9 and platelet count 295. BUN is 32 with a creatinine 0.7. Sodium levels at 142. Fluid balance is -1.3 L over the past 24 hours. The patient is seen today May 12, 2025 and follow-up on the regular medical floor. She is currently resting in bed. Awake and alert in no acute distress. Maintaining good O2 saturations in the 90s on room air oxygen. She has been afebrile. Hemodynamically stable. Follow-up chest x-ray continues to show some mild diffuse interstitial changes consistent with congestive heart failure. White count 6.8. Hemoglobin 11.6. Platelets 332. Sodium 139. Potassium 4.6. Bicarb 28. BUN 34. Creatinine 0.7. Glucose 226. She remains on oral diuretics. Prednisone taper. Anticoagulated with Eliquis. Currently at a -2.8 L balance. Objective - Vital Signs Vital signs: Vital Signs Temp 97.6 F 05/12/25 07:56 Pulse 80 05/12/25 09:35 Resp 17 05/12/25 07:56 BP 154/85 05/12/25 07:56 Pulse Ox 94 L 05/12/25 07:56 FiO2 Intake & Output 05/11/25 05/12/25 05/12/25 18:59 06:59 18:59 Output Total 1800 1000 500 Balance -1800 -1000 -500 Weight 63.5 kg Output: Urine 1800 1000 500 Other: Voiding Method External Catheter External Catheter External Catheter # Voids 1 1 # Bowel Movements 1 1 - Exam GENERAL EXAM: Alert, pleasant 79-year-old obese female, sitting up in bed, comfortable in no apparent distress. Currently on room air oxygen. HEAD: Normocephalic and atraumatic EYES: Normal reaction of pupils, equal size. NOSE: Clear with pink turbinates. THROAT: No erythema or exudates. NECK: No masses, no JVD. CHEST: No chest wall deformity. LUNGS: Equal air entry with faint crackles in the bilateral bases. CVS: S1 and S2 normal with 2+ systolic murmur, irregular rhythm. No other extra heart sounds ABDOMEN: No hepatosplenomegaly, active bowel sounds, no guarding or rigidity. SPINE: No scoliosis or deformity SKIN: No rashes CENTRAL NERVOUS SYSTEM: No focal deficits, tone is normal in all 4 extremities. EXTREMITIES: There is no peripheral edema, clubbing, or cyanosis. Peripheral pulses are intact. - Labs CBC & Chem 7: 05/12/25 03:13 05/12/25 03:13 Labs: Abnormal Lab Results - Last 24 Hours (Table) 05/11/25 05/11/25 05/12/25 Range/Units 16:28 20:07 03:13 RBC 3.76 L (4.10-5.20) X 10*6/uL Hgb 11.6 L (12.0-15.0) g/dL MCV 99.5 H (80.0-97.0) FL MCHC 31.0 L (32.0-37.0) g/dL MPV 8.9 L (9.5-12.2) FL Immature Gran # 0.05 H (0.00-0.04) X 10*3/uL Lymphocytes # 0.66 L (0.90-5.00) X 10*3/uL Eosinophils # 0 L (0.04-0.35) X 10*3/uL BUN (9.0-27.0) mg/dL BUN/Creatinine Ratio (12.00-20.00) Ratio Glucose (70-110) mg/dL POC Glucose (mg/dL) 238 H 285 H (70-110) mg/dL Calcium (8.7-10.3) mg/dL 05/12/25 05/12/25 05/12/25 Range/Units 03:13 06:19 11:08 RBC (4.10-5.20) X 10*6/uL Hgb (12.0-15.0) g/dL MCV (80.0-97.0) FL MCHC (32.0-37.0) g/dL MPV (9.5-12.2) FL Immature Gran # (0.00-0.04) X 10*3/uL Lymphocytes # (0.90-5.00) X 10*3/uL Eosinophils # (0.04-0.35) X 10*3/uL BUN 34.2 H (9.0-27.0) mg/dL BUN/Creatinine Ratio 48.86 H (12.00-20.00) Ratio Glucose 226 H (70-110) mg/dL POC Glucose (mg/dL) 188 H 177 H (70-110) mg/dL Calcium 8.4 L (8.7-10.3) mg/dL Assessment and Plan Assessment: Acute exacerbation of congestive heart failure, with preserved ejection fraction, improved. The patient has been diuresing adequately. 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 Atrial fibrillation, with controlled ventricular response, currently on IV heparin Hypertension History of hyperlipidemia Remote history of tobacco use Chronic back pain History of depression Plan: The patient was seen and evaluated Chest x-ray, labs and medications reviewed Chest x-ray showing much improvement Currently stable on room air oxygen Remains on oral diuretics Remains on a negative balance Continued on a prednisone taper Bronchodilators as needed Cleared for discharge Follow-up in our office in 1 week I have personally seen and examined the patient, performed the documentation and the assessment and plan as written. Number of minutes spent on the visit: 10 Dictation was produced using [id number] dictation software. Please excuse any g rammatical, word or spelling errors.
[2025-05-12 16:33] LABS: Glucose,Whole Blood 257 mg/dL (70-110)
--- NOTE | 2025-05-12 20:07 | P.PN ---
Subjective 79-year-old lady with past medical history significant for hypertension, hyperlipidemia presented the ER because of shortness of breath. Patient stated that she was all right yesterday when she started noticing that she was getting short of breath. Shortness of breath was present on rest as with exertion. Patient also complaining of swelling of lower extremities. Patient also complaining of chest tightness at the time but denies any chest pain. There was complaint of wheezing. There was no complaint of orthopnea or PND. Patient denies any palpitation. There is no complaint of orthopnea or PND. Denies any nausea, vomiting abdominal pain. Patient denies any complaint of dizziness. There is no complaint of headache. Because of the symptoms, patient came to the ER Initial lab work done in the ER showed WC 6.32, hemoglobin 10.8, platelet count 258, sodium 130, potassium 4.2, BUN 16, creatinine 0.62, glucose 117, troponin 0.015 Influenza A not detected Influenza B not detected RSV not detected COVID-19 not detected EKG done in the ER showed heart rate of 84, no ST segment elevation or depression seen, no T-wave inversions seen. Chest x-ray done in the ER cardiomegaly, pulmonary congestion and bilateral pleural effusion. Patient admitted to internal medicine service 24-hour interval change 05/10/2025 Patient is seen and evaluated in room at bedside She feels better than when she came in but is experiencing more shortness of breath and cough compared to yesterday. She was seen by pulmonary who recommend continued supplemental oxygen, DuoNebs [id number] and IV Solu-Medrol. Echocardiogram with Doppler study done 05/08/2025 showed normal LV systolic function with severe pulmonary hypertension, mild aortic stenosis and mild tricuspid regurgitation. She remains on IV Lasix 40 mg every 12 hours. - Cardiology on board and recommending to repeat BNP; add Coreg; given anaphylactic response, lisinopril is going to be avoided; discontinue amlodipine; patient was placed on hydralazine 25 mg twice daily along with oral nitrates \ 05/12 Patient with no chest pain Breathing little hard But she is improving getting close to baseline She remains on prednisone 40 mg daily and her home dose of Eliquis she remains on oral Lasix 40 mg twice daily, she makes good urine output 2 to 3 L over the last 24 hours Plan for her to go to [facility] once cleared by cardiology team Objective - Vital Signs Vital signs: Vital Signs Temp 97.2 F L 05/12/25 14:00 Pulse 94 05/12/25 17:30 Resp 17 05/12/25 14:00 BP 132/82 05/12/25 17:30 Pulse Ox 95 05/12/25 17:30 FiO2 Intake & Output 05/11/25 05/12/25 05/12/25 18:59 06:59 18:59 Output Total 1800 1000 500 Balance -1800 -1000 -500 Weight 63.5 kg Output: Urine 1800 1000 500 Other: Voiding Method External Catheter External Catheter External Catheter # Voids 1 1 # Bowel Movements 1 1 - Exam GENERAL: The patient is alert and oriented x3, not in any acute distress. Well developed, well nourished. HEENT: Pupils are round and equally reacting to light. EOMI. No scleral icterus. No conjunctival pallor. Normocephalic, atraumatic. No pharyngeal erythema. No thyromegaly. CARDIOVASCULAR: S1 and S2 present. No murmurs, rubs, or gallops. PULMONARY: Chest is clear to auscultation, no wheezing , no crackles. ABDOMEN: Soft, nontender, nondistended, normoactive bowel sounds. No palpable organomegaly. MUSCULOSKELETAL: No joint swelling or deformity. EXTREMITIES: No cyanosis, clubbing, or pedal edema. NEUROLOGICAL: Gross neurological examination did not reveal any focal deficits. SKIN: No rashes. no petechiae. - Labs CBC & Chem 7: 05/12/25 03:13 05/12/25 03:13 Labs: Abnormal Lab Results - Last 24 Hours (Table) 05/11/25 05/12/25 05/12/25 Range/Units 20:07 03:13 03:13 RBC 3.76 L (4.10-5.20) X 10*6/uL Hgb 11.6 L (12.0-15.0) g/dL MCV 99.5 H (80.0-97.0) FL MCHC 31.0 L (32.0-37.0) g/dL MPV 8.9 L (9.5-12.2) FL Immature Gran # 0.05 H (0.00-0.04) X 10*3/uL Lymphocytes # 0.66 L (0.90-5.00) X 10*3/uL Eosinophils # 0 L (0.04-0.35) X 10*3/uL BUN 34.2 H (9.0-27.0) mg/dL BUN/Creatinine Ratio 48.86 H (12.00-20.00) Ratio Glucose 226 H (70-110) mg/dL POC Glucose (mg/dL) 285 H (70-110) mg/dL Calcium 8.4 L (8.7-10.3) mg/dL 05/12/25 05/12/25 05/12/25 Range/Units 06:19 11:08 16:30 RBC (4.10-5.20) X 10*6/uL Hgb (12.0-15.0) g/dL MCV (80.0-97.0) FL MCHC (32.0-37.0) g/dL MPV (9.5-12.2) FL Immature Gran # (0.00-0.04) X 10*3/uL Lymphocytes # (0.90-5.00) X 10*3/uL Eosinophils # (0.04-0.35) X 10*3/uL BUN (9.0-27.0) mg/dL BUN/Creatinine Ratio (12.00-20.00) Ratio Glucose (70-110) mg/dL POC Glucose (mg/dL) 188 H 177 H 257 H (70-110) mg/dL Calcium (8.7-10.3) mg/dL Assessment and Plan Assessment: Acute CHF exacerbation, preserved ejection fraction Acute hypoxic respiratory failure, resolved COPD exacerbation, improved Mild to moderate aortic stenosis Pulmonary hypertension Hypertension Hyperlipidemia Chronic low back pain Plan: Continue with oral Lasix Patient has good urine output Steroids switched to prednisone Repeat chest x-ray reviewed today showing mild pulmonary congestion Continue with monitoring for another 24 hours and if she remains stable may consider for discharge back to [facility] tomorrow once cleared by cardiology service Pulmonary service is going to clear the patient Labs and medication were reviewed.. Continue same treatment. Continue with symptomatic treatment. Resume home medication. Monitor labs and vitals. DVT and GI prophylaxis. Further recommendations as per clinical course of the patient DVT prophylaxis: S Eliquis GI Prophylaxis: Protonix Prognosis is guarded
[2025-05-12 20:36] LABS: Glucose,Whole Blood 275 mg/dL (70-110)
--- NOTE | 2025-05-12 23:22 | P.PN ---
Subjective Progress Note Date: 05/12/25 This is a 79-year-old female with a past medical history significant for normal coronary arteries, atrial fibrillation, hypertension, and hyperlipidemia. Patient does not follow with a manual lathe machinist. We have been asked to see the patient in consultation for shortness of breath. Patient examined at the [facility]. Patient presented to the hospital with a chief complaint of shortness of breath. The patient also was complaining of nausea this morning. She denies any lower extremity swelling. She does report having weight gain recently. She denies any known history of CHF. The patient does have a history of atrial fibrillation. She is not anticoagulated on an outpatient basis. She is unsure of the reason why. She denies any known history of bleeding issues. DIAGNOSTICS: - EKG reveals atrial fibrillation with controlled intraocular rate. - Chest xray cardiomegaly, pulmonary vascular congestion and bilateral pleural effusions. - Laboratory data: Troponin negative x 3. proBNP 1730. - Current home cardiac medications include amlodipine 10 mg daily, Lipitor 40 mg daily, aspirin 81 mg daily. - Most recent echocardiogram obtained in December 2004 revealing normal EF - Cardiac catheterization history: 2017 revealing normal coronary arteries 05/10/2025 Patient was seen and examined resting comfortably in bed. She feels better than when she came in but is experiencing more shortness of breath and cough compared to yesterday. She was seen by pulmonary who recommend continued supplemental ox ygen, DuoNebs [id number] and IV Solu-Medrol. Echocardiogram with Doppler study done 05/08/2025 showed normal LV systolic function with severe pulmonary hypertension, mild aortic stenosis and mild tricuspid regurgitation. She remains on IV Lasix 40 mg every 12 hours. Labs this morning showed stable renal function. She remains in atrial fibrillation with heart rate in the 80s and 90s. Blood pressure has been in the 140s to 150s systolic. Oxygen saturation 97% on 3 L via nasal cannula. 05/11/2025 The patient was seen and examined resting comfortably in bed. Overall she is feeling a bit better today. She feels she is breathing easier today. Blood pressure is better controlled. Remains in A-fib with controlled ventricular response. Labs are stable 05/12/2025 Rate controlled atrial fibrillation. Shortness of breath is improved. Echo showed normal LVEF with moderate aortic stenosis, dilated aorta root at 3.9 cm. PHYSICAL EXAM: VITAL SIGNS: Reviewed. GENERAL: Well-developed in no acute distress. HEENT: Head is normocephalic. Pupils are equal, round. Sclerae anicteric. Mucous membranes of the mouth are moist. Neck supple. No JVD or thyromegaly LUNGS: Respirations even and unlabored. Lungs with bilateral wheezing noted, less pronounced compared to yesterday HEART: Irregular rate and rhythm. S1 and S2 heard. Systolic ejection murmur noted ABDOMEN: Soft. Nondistended. Nontender. EXTREMITIES: Normal range of motion. No clubbing or cyanosis. Peripheral pulses intact. No lower extremity edema NEUROLOGIC: Awake and alert. Oriented x 3. ASSESSMENT: Shortness of breath Acute heart failure with preserved EF, repeat echo pending Persistent atrial fibrillation, on Eliquis. Was not on anticoagulation prior to admission for unknown reason Mild to moderate aortic stenosis Severe pulmonary hypertension Normal coronary arteries, per cath 2017 Hypertension Hyperlipidemia PLAN: Continue anticoagulation. Discontinue aspirin Patient is optimized from cardiovascular standpoint. Cardiology team will sign off. Recommend outpatient follow-up with primary manual lathe machinist. Objective - Vital Signs Vital signs: Vital Signs Temp 97.2 F L 05/12/25 14:00 Pulse 94 05/12/25 17:30 Resp 17 05/12/25 14:00 BP 132/82 05/12/25 17:30 Pulse Ox 95 05/12/25 17:30 FiO2 Intake & Output 05/12/25 05/12/25 05/13/25 06:59 18:59 06:59 Output Total 1000 500 Balance -1000 -500 Weight 63.5 kg Output: Urine 1000 500 Other: Voiding Method External Catheter External Catheter External Catheter # Voids 1 1 # Bowel Movements 1 - Labs CBC & Chem 7: 05/12/25 03:13 05/12/25 03:13 Labs: Abnormal Lab Results - Last 24 Hours (Table) 05/12/25 05/12/25 05/12/25 Range/Units 03:13 03:13 06:19 RBC 3.76 L (4.10-5.20) X 10*6/uL Hgb 11.6 L (12.0-15.0) g/dL MCV 99.5 H (80.0-97.0) FL MCHC 31.0 L (32.0-37.0) g/dL MPV 8.9 L (9.5-12.2) FL Immature Gran # 0.05 H (0.00-0.04) X 10*3/uL Lymphocytes # 0.66 L (0.90-5.00) X 10*3/uL Eosinophils # 0 L (0.04-0.35) X 10*3/uL BUN 34.2 H (9.0-27.0) mg/dL BUN/Creatinine Ratio 48.86 H (12.00-20.00) Ratio Glucose 226 H (70-110) mg/dL POC Glucose (mg/dL) 188 H (70-110) mg/dL Calcium 8.4 L (8.7-10.3) mg/dL 05/12/25 05/12/25 05/12/25 Range/Units 11:08 16:30 20:30 RBC (4.10-5.20) X 10*6/uL Hgb (12.0-15.0) g/dL MCV (80.0-97.0) FL MCHC (32.0-37.0) g/dL MPV (9.5-12.2) FL Immature Gran # (0.00-0.04) X 10*3/uL Lymphocytes # (0.90-5.00) X 10*3/uL Eosinophils # (0.04-0.35) X 10*3/uL BUN (9.0-27.0) mg/dL BUN/Creatinine Ratio (12.00-20.00) Ratio Glucose (70-110) mg/dL POC Glucose (mg/dL) 177 H 257 H 275 H (70-110) mg/dL Calcium (8.7-10.3) mg/dL
[2025-05-13 06:28] LABS: Glucose,Whole Blood 117 mg/dL (70-110)
[2025-05-13 08:08] VITALS: RESP 16; TEMP 97.4
[2025-05-13 11:41] LABS: Glucose,Whole Blood 159 mg/dL (70-110)
--- NOTE | 2025-05-13 11:47 | P.PN ---
Subjective Progress Note Date: 05/13/25 Patient is an 79-year-old male female with past medical history significant for atrial fibrillation, hypertension, hyperlipidemia. Her primary care provider is Dr. Albright. Presented to emergency department back on April, with complaints of shortness of breath and chest tightness. Workup in the ED including a chest x-ray showing cardiomegaly, pulmonary vascular congestion, bilateral pleural effusions. A follow-up chest CT angiogram did not show any evidence of pulmonary embolism. Redemonstration of small left pleural effusion and moderate right-sided pleural effusion with associated atelectasis. Dilated main pulmonary artery, suggestive of pulmonary hypertension. Echocardiogram estimating a left ventricular ejection fraction of 55 to 60% with moderate concentric LVH, and mild to moderate aortic stenosis with a mean gradient of 17 mmHg. RVSP 55.4. EKG: Atrial fibrillation with controlled ventricular response, rate 84 bpm, no acute ischemic changes. She has been started on IV heparin by cardiology. Also, Lasix 40 mg twice daily. Patient also previously thought to have an underlying COPD exacerbation. She was started on DuoNebs [id number], IV Solu-Medrol 40 mg every 6 hours. CBC unremarkable. CMP also unremarkable, electrolytes WDL, creatinine 0.62, glucose 117. Troponin troponins 0.015, 0.017, and 0.015 respectively. NT proBNP mildly elevated at 1730. Viral 4 Plex negative for influenza A/B, RSV, COVID. Patient currently being seen on the general medical floor. Currently on 4 L/min nasal cannula. She states that she has had increased work of breathing with chest tightness and occasional wheezing for approximately 1 month. She did go to [facility] where she was provided with a steroid shot, steroid tablets, and albuterol treatment. She states this did help initially, then her breathing deteriorated. Especially, over the last 48 hours. Experiencing severe dyspnea, now at rest and particularly when lying flat. Associated chest tightness and occasional wheezing. Denies any heart palpitations, lightheadedness or syncopal events, or lower extremity swelling. Denies any sick contacts. No fevers or chills. No significant cough or sputum production. No hemoptysis. No pleurisy. Denies history of COPD or asthma. Previously smoked 1 pack/day for many years, however, quit in 1987. She does not normally require home oxygen. She does remark on her chronic lower back pain. She has had previous back surgeries. Ambulates with walker. Has had difficulty getting around her home as of late, and plans to go to an assisted living facility. Vital signs are stable. On 05/09/2025, the patient is being seen for a follow-up. The patient is feeling better compared to yesterday. No significant shortness of breath on today's evaluation. Fluid balance is -3.7 L over the past 24 hours and the patient is producing excellent amount of urine output while being on Lasix 40 mg IV push every 12 hours. The patient is also on DuoNeb nebulizers [id number] and IV Solu-Medrol. Echocardiogram was completed yesterday and the patient was found to have a preserved LV function. The patient ejection fraction was 55 to 60% and she had moderate concentric LVH and no significant valvular abnormalities. The right ventricular systolic pressure was remaining to be around 55. Same time, the patient underwent a CT of the chest that showed no evidence of any pulmonary embolism. There was a small left-sided pleural effusion and moderate-sized right-sided pleural effusion. Some atelectatic change in lung bases along with compressive atelectasis. There is dilatation of the pulmonary artery consistent with pulmonary hypertension. Clinically improved and the patient is awake and alert without any signs of any CO2 narcosis and she is on 3 L of oxygen by nasal cannula with a pulse ox of 92%. Hemoglobin is 11.8 with a platelet count of 298. Electrolytes are normal. BUN 17 with a creatinine of 0.6. Blood sugars at 201. On 05/10/2025, the patient is doing well. Calm and comfortable. Shortness of breath continues to improve and the patient is currently on room air oxygen. The patient is diuresing very well. The patient has been in negative fluid balance of 3.7 L over the past 24 hours. She is also on bronchodilators. She is on IV Solu-Medrol 40 mg every 6 hours. The BUN is at 31 with a creatinine of 0.7. Sodium level is 145 and potassium is at 4.2. Echocardiogram done on 05/08/2025 and the patient has a preserved LV function with diastolic heart failure. The patient also has moderate degree of pulm hypertension with a PA pressure of 55. No altered mentation. No other significant events overnight. On 05/11/2025, the patient is being seen for a follow-up. Doing well. No specific complaints. She remains on room air oxygen. The patient has been diuresed adequately and the patient is currently off diuretics. Less short of breath. Less bronchospastic and wheezy. Remains on IV Solu-Medrol and this will be transitioned to prednisone burst taper. Remains on anticoagulation with Eliquis. Receiving albuterol nebulizer treatments. No other significant events overnight. The white cell count at 7.3 with a heme of 10.9 and platelet count 295. BUN is 32 with a creatinine 0.7. Sodium levels at 142. Fluid balance is -1.3 L over the past 24 hours. The patient is seen today May 12, 2025 and follow-up on the regular medical floor. She is currently resting in bed. Awake and alert in no acute distress. Maintaining good O2 saturations in the 90s on room air oxygen. She has been afebrile. Hemodynamically stable. Follow-up chest x-ray continues to show some mild diffuse interstitial changes consistent with congestive heart failure. White count 6.8. Hemoglobin 11.6. Platelets 332. Sodium 139. Potassium 4.6. Bicarb 28. BUN 34. Creatinine 0.7. Glucose 226. She remains on oral diuretics. Prednisone taper. Anticoagulated with Eliquis. Currently at a -2.8 L balance. The patient is seen today May 13, 2025 in follow-up on the regular medical floor. She is awake and alert in no acute distress. Sitting up in a chair at the bedside. Denies any worsening shortness of breath, cough or congestion. Maintaining good O2 saturations in the high 90s on 2 L/min per nasal cannula. She has been afebrile. Hemodynamically stable. Glucose 159. She remains on albuterol as needed. Anticoagulated with Eliquis. Continued on a prednisone taper. Continued on oral diuretics. Currently net -500 mL balance. Objective - Vital Signs Vital signs: Vital Signs Temp 97.4 F L 05/13/25 07:30 Pulse 72 05/13/25 09:41 Resp 16 05/13/25 07:30 BP 128/68 05/13/25 07:30 Pulse Ox 98 05/13/25 07:30 FiO2 Intake & Output 05/12/25 05/13/25 05/13/25 18:59 06:59 18:59 Output Total 500 Balance -500 Weight 101 kg Output: Urine 500 Other: Voiding Method External Catheter External Catheter External Catheter # Voids 1 2 # Bowel Movements 1 - Exam GENERAL EXAM: Alert, 79-year-old obese female, sitting up in a chair, in no apparent distress. On 2 L/min per nasal cannula. HEAD: Normocephalic and atraumatic EYES: Normal reaction of pupils, equal size. NOSE: Clear with pink turbinates. THROAT: No erythema or exudates. NECK: No masses, no JVD. CHEST: No chest wall deformity. LUNGS: Equal air entry with faint crackles in the bilateral bases. CVS: S1 and S2 normal with 2+ systolic murmur, irregular rhythm. No other extra heart sounds ABDOMEN: No hepatosplenomegaly, active bowel sounds, no guarding or rigidity. SPINE: No scoliosis or deformity SKIN: No rashes CENTRAL NERVOUS SYSTEM: No focal deficits, tone is normal in all 4 extremities. EXTREMITIES: There is no peripheral edema, clubbing, or cyanosis. Peripheral pulses are intact. - Labs CBC & Chem 7: 05/12/25 03:13 05/12/25 03:13 Labs: Abnormal Lab Results - Last 24 Hours (Table) 05/12/25 05/12/25 05/13/25 Range/Units 16:30 20:30 06:27 POC Glucose (mg/dL) 257 H 275 H 117 H (70-110) mg/dL Assessment and Plan Assessment: Acute exacerbation of congestive heart failure, with preserved ejection fraction, improved. The patient has been diuresing adequately. 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 Atrial fibrillation, with controlled ventricular response, currently on IV heparin Hypertension History of hyperlipidemia Remote history of tobacco use Chronic back pain History of depression Plan: The patient was seen and evaluated Labs and medications reviewed Remains on oral diuretics Remains in a negative balance Continued on a prednisone taper Bronchodilators as needed Stable for discharge Plan is for [facility] Follow-up in our office in 1 week I have personally seen and examined the patient, performed the documentation and the assessment and plan as written. Number of minutes spent on the visit: 10 Dictation was produced using [employer] dictation software. Please excuse any grammatical, word or spelling errors.
--- NOTE | 2025-05-13 12:02 | P.DS ---
Providers Date of admission: 05/07/25 20:33 Attending physician: Emeli Steele MD Consults: 05/07/25 20:33 Consult Physician Routine Consulting Provider: Cleveland Bailey Consult Reason/Comments: CHF Do you want consulting provider notified?: Yes, Notify in am 05/08/25 09:50 Consult Physician Routine Consulting Provider: Los Young Consult Reason/Comments: Respiratory failure, CHF Do you want consulting provider notified?: Yes Primary care physician: Dede Albright Hospital Course: Diagnoses: Acute CHF exacerbation, preserved ejection fraction Acute hypoxic respiratory failure, resolved COPD exacerbation, improved Persistent atrial fibrillation, on Eliquis. Was not on anticoagulation prior to admission for unknown reason, placed on eliquis during this hospitalization Mild to moderate aortic stenosis Pulmonary hypertension Hypertension Hyperlipidemia Chronic low back pain Hospital course: 79-year-old lady with past medical history significant for hypertension, hyperlipidemia presented the ER because of shortness of breath. Patient stated that she was all right yesterday when she started noticing that she was getting short of breath. Shortness of breath was present on rest as with exertion. Patient evaluated by cardiology and pulmonary service. Patient treated with IV Solu-Medrol and diuretic. Patient shortness of improvement and his breathing improved and patient denies chest pain or dyspnea no other new complaint. Patient is also on Eliquis cardiology recommend to stop aspirin. Patient placed on taper prednisone upon discharge per pulmonary. No other new complaint. Patient was cleared for discharge by both cardiology and pulmonary service to go back to [facility]. Problems and management plan were discussed with the patient and he verbalized understanding and acceptance Patient was found stable and can be discharged care home in guarded prognosis however he needs follow-up as an outpatient. Patient was instructed to follow up with PCP within one week and patient agrees Patient instructed to follow-up with urinalysis technician and track moving machine operator as in discharge instructions within 2 weeks and she agrees Physical exam Gen: patient is a AAOx3, no distress CVS: S1-S2, RRR, no murmur Lungs: B/L CTA, no wheezing Abdomen: soft, no distention, no tenderness, positive bowel sounds Extremity: no leg edema or induration Time spent more than 35 minutes Patient Condition at Discharge: Stable Plan - Discharge Summary Discharge Rx Participant: Yes New Discharge Prescriptions: New hydrALAZINE HCL [Apresoline] 25 mg PO BID tab carvediloL [Coreg] 6.25 mg PO BID-W/MEALS tab Isosorbide Dinitrate [Isordil] 20 mg PO BID tab predniSONE 10 mg PO DIRECTED #40 tab Apixaban [Eliquis] 5 mg PO BID tab Dapagliflozin Propanediol [Farxiga] 10 mg PO DAILY #0 tab Furosemide [Lasix] 40 mg PO BID@0900,1600 tab Continue Pantoprazole Sodium [Protonix] 20 mg PO DAILY DULoxetine HCL [Cymbalta] 20 mg PO DAILY Sennosides [Senokot] 8.6 mg PO DAILY #0 Ferrous Sulfate [Iron (65 MG Elemental)] 325 mg PO DAILY Atorvastatin [Lipitor] 40 mg PO DAILY HYDROcodone/APAP 5-325MG [Kennard 5-325] 1 tab PO Q6H Cyanocobalamin (Vitamin B-12) [Vitamin B-12] 1,000 mcg PO DAILY Discontinued Aspirin [Aspirin EC] 1,000 mg PO Q4-6H PRN PRN Reason: swelling/pain amLODIPine [Norvasc] 10 mg PO DAILY Aspirin EC [Ecotrin Low Dose] 81 mg PO DAILY No Action Propylene Glycol/Peg 400 [Systane Ultra 0.4-0.3% Eye Drp] 1 - 2 drops BOTH EYES QID PRN PRN Reason: Dry Eye(S) Carbamide Peroxide [Debrox Otic] 1 - 5 drops BOTH EARS DAILY PRN PRN Reason: earwax buildup Discharge Medication List Atorvastatin [Lipitor] 40 mg PO DAILY 05/07/25 [History] Carbamide Peroxide [Debrox Otic] 1 - 5 drops BOTH EARS DAILY PRN 05/07/25 [History] Cyanocobalamin (Vitamin B-12) [Vitamin B-12] 1,000 mcg PO DAILY 05/07/25 [History] DULoxetine HCL [Cymbalta] 20 mg PO DAILY 05/07/25 [History] Ferrous Sulfate [Iron (65 MG Elemental)] 325 mg PO DAILY 05/07/25 [History] HYDROcodone/APAP 5-325MG [Kennard 5-325] 1 tab PO Q6H 05/07/25 [History] Pantoprazole Sodium [Protonix] 20 mg PO DAILY 05/07/25 [History] Propylene Glycol/Peg 400 [Systane Ultra 0.4-0.3% Eye Drp] 1 - 2 drops BOTH EYES QID PRN 05/07/25 [History] Apixaban [Eliquis] 5 mg PO BID tab 05/13/25 [Rx] Dapagliflozin Propanediol [Farxiga] 10 mg PO DAILY #0 tab 05/13/25 [Rx] Furosemide [Lasix] 40 mg PO BID@0900,1600 tab 05/13/25 [Rx] Isosorbide Dinitrate [Isordil] 20 mg PO BID tab 05/13/25 [Rx] Sennosides [Senokot] 8.6 mg PO DAILY #0 05/13/25 [Rx] carvediloL [Coreg] 6.25 mg PO BID-W/MEALS tab 05/13/25 [Rx] hydrALAZINE HCL [Apresoline] 25 mg PO BID tab 05/13/25 [Rx] predniSONE 10 mg PO DIRECTED #40 tab 05/13/25 [Rx] Follow up Appointment(s)/Referral(s): Dede Albright MD [Primary Care Provider] - 1-2 days Los Young MD [STAFF PHYSICIAN] - 2 Weeks Andres Herron MD [Medical Doctor] - 2 Weeks Activity/Diet/Wound Care/Special Instructions: The patient requires a wheelchair to complete her ADLS which cannot be done with a walker or wheelchair due to CHF. Patient is able to self propel.
[2025-05-13 16:33] VITALS: PULSE 96
[2025-05-13 17:01] VITALS: BP 126/78
[2025-05-13 17:02] LABS: Glucose,Whole Blood 395 mg/dL (70-110)
== END 2025-05-13 17:49 | DRG 291 ==
LOC: EC 16:15 → 4SSUR 20:33
PROVIDERS: ADMIT Internal Medicine; ATTEND Internal Medicine
DX: I11.0 Hypertensive heart disease with heart failure (principal); I50.33 Acute on chronic diastolic (congestive) heart failure; J96.01 Acute respiratory failure with hypoxia; J44.1 Chronic obstructive pulmonary disease with (acute) exacerbation; I27.22 Pulmonary hypertension due to left heart disease; E11.9 Type 2 diabetes mellitus without complications; I35.0 Nonrheumatic aortic (valve) stenosis; E66.9 Obesity, unspecified; F32.A Depression, unspecified; I48.19 Other persistent atrial fibrillation; J98.11 Atelectasis; Z68.36 Body mass index [BMI] 36.0-36.9, adult; E78.5 Hyperlipidemia, unspecified; M48.00 Spinal stenosis, site unspecified; M54.40 Lumbago with sciatica, unspecified side; G89.29 Other chronic pain; Z79.82 Long term (current) use of aspirin; Z79.891 Long term (current) use of opiate analgesic; Z79.899 Other long term (current) drug therapy; Z87.891 Personal history of nicotine dependence; Z88.8 Allergy status to other drugs, medicaments and biological substances
CPT/HCPCS: 36415; 71045; 71046; 71275; 80048; 80053; 83735; 83880; 84484; 85025; 85610; 85730; 87636; 93005; 93306; 94640; 94760; 96374; 96375; 99285

== ENCOUNTER 2025-05-15 12:20 | Inpatient (IN) | payer MEDICARE, BC ==
--- NOTE | 2025-05-15 12:36 | ED ---
General Adult HPI - General Stated complaint: Chest pain Time Seen by Provider: 05/15/25 12:20 Source: patient, RN notes reviewed, old records reviewed - History of Present Illness Initial comments: This is an 79-year-old female presents to the emergency department the past medical history significant for COPD and congestive heart failure. Patient was at [facility] when she started experiencing chest pain. Patient states it radiated to her left shoulder made her short of breath. Patient states on the way in with the ambulance she was given nitroglycerin and took her pain away completely. Patient states currently she is pain-free. Patient denies any abdominal pain patient has nausea vomiting diarrhea. Patient denies any other symptoms at this time. - Related Data Home Medications Medication Instructions Recorded Confirmed Atorvastatin [Lipitor] 40 mg PO HS 05/07/25 05/15/25 Carbamide Peroxide [Debrox Otic] 2 drops BOTH EARS DAILY PRN 05/07/25 05/15/25 Cyanocobalamin (Vitamin B-12) 1,000 mcg PO DAILY 05/07/25 05/15/25 [Vitamin B-12] DULoxetine HCL [Cymbalta] 20 mg PO DAILY 05/07/25 05/15/25 Ferrous Sulfate [Iron (65 MG 325 mg PO DAILY 05/07/25 05/15/25 Elemental)] Propylene Glycol/Peg 400 [Systane 1 - 2 drops BOTH EYES QID PRN 05/07/25 Ultra 0.4-0.3% Eye Drp] Furosemide [Lasix] 40 mg PO BID@0600,1400 05/15/25 05/15/25 HYDROcodone/APAP 5-325MG [Alden 1 tab PO Q6H PRN 05/15/25 05/15/25 5-325] Omeprazole [PriLOSEC] 20 mg PO DAILY@0800 05/15/25 05/15/25 carvediloL [Coreg] 6.25 mg PO BID@0900,1700 05/15/25 05/15/25 predniSONE See Taper PO DIRECTED 05/15/25 05/15/25 Previous Rx's Medication Instructions Recorded Apixaban [Eliquis] 5 mg PO BID tab 05/13/25 Dapagliflozin Propanediol [Farxiga] 10 mg PO DAILY #0 tab 05/13/25 Isosorbide Dinitrate [Isordil] 20 mg PO BID tab 05/13/25 Sennosides [Senokot] 8.6 mg PO DAILY #0 05/13/25 hydrALAZINE HCL [Apresoline] 25 mg PO BID tab 05/13/25 Allergies Allergy/AdvReac Type Severity Reaction Status Date / Time lisinopril Allergy Anaphylaxis Verified 05/15/25 14:33 metformin AdvReac kidneys Verified 05/15/25 14:33 shut down methotrexate AdvReac Rapid Verified 05/15/25 14:33 Heart Rate Review of Systems ROS Statement: Those systems with pertinent positive or pertinent negative responses have been documented in the HPI. ROS Other: All systems not noted in ROS Statement are negative. 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 History of Any Multi-Drug Resistant Organisms: None Reported Past Surgical History: Back Surgery Past Psychological History: No Psychological Hx Reported Smoking Status: Never smoker Past Alcohol Use History: None Reported Past Drug Use History: None Reported General Exam - General Exam Comments Initial Comments: GENERAL: Patient is well-developed and well-nourished. Patient is nontoxic and well- hydrated and is in mild distress. ENT: Neck is soft and supple. No significant lymphadenopathy is noted. Oropharynx is clear. Moist mucous membranes. Neck has full range of motion without eliciting any pain. EYES: The sclera were anicteric and conjunctiva were pink and moist. Extraocular movements were intact and pupils were equal round and reactive to light. Eyelids were unremarkable. PULMONARY: Unlabored respirations. Good breath sounds bilaterally. No audible rales rhonchi or wheezing was noted. CARDIOVASCULAR: There is a regular rate and rhythm without any murmurs gallops or rubs. ABDOMEN: Soft and nontender with normal bowel sounds. SKIN: Skin is clear with no lesions or rashes and otherwise unremarkable. NEUROLOGIC: Patient is alert and oriented x3. Cranial nerves II through XII are grossly intact. Motor and sensory are also intact. Normal speech, volume and content. Symmetrical smile. MUSCULOSKELETAL: Normal extremities with adequate strength and full range of motion. No lower ex tremity swelling or edema. No calf tenderness. LYMPHATICS: No significant lymphadenopathy is noted PSYCHIATRIC: Normal psychiatric evaluation. Course Vital Signs 07/05/15/25 05/15/25 12:23 13:30 14:00 Temperature 98.1 F Pulse Rate 89 89 93 Respiratory 24 18 20 Rate Blood Pressure 91/64 96/64 99/60 O2 Sat by Pulse 97 98 97 Oximetry 05/15/25 14:47 Temperature Pulse Rate 94 Respiratory 16 Rate Blood Pressure 112/77 O2 Sat by Pulse Oximetry Medical Decision Making - Medical Decision Making EKG is interpreted by myself. EKG shows atrial fibrillation at a rate of 89 bpm QRS is 90 QT interval 356 QTc is 403. Patient's EKG shows no ST segment elevation or depression. Was pt. sent in by a medical professional or institution (, PA, SENIOR GAMEMASTER, urgent care, hospital, or correction...) When possible be specific @ -No Did you speak to anyone other than the patient for history (EMS, parent, family, police, friend...)? What history was obtained from this source @ -No Did you review nursing and triage notes (agree or disagree)? Why? @ -I reviewed and agree with nursing and triage notes Were old charts reviewed (outside hosp., previous admission, EMS record, old EKG, old radiological studies, urgent care reports/EKG's, correction records)? Report findings @ -No old charts were reviewed Differential Diagnosis? @ -Differential Chest Pain: Stable Angina, Unstable Angina, STEMI, NSTEMI Aortic Dissection, Pneumothorax, Musculoskeletal, Esophageal Spasm GERD, Cholecystitis, Pancreatitis, Zoster, this is not meant to be an all-inclusive list. Differential Dyspnea: Coronary syndrome, arrhythmia, tamponade, asthma, COPD, pulmonary embolism, pneumonia, pneumothorax, pulmonary effusion, anaphylaxis, diabetic ketoacidosis, flailed chest, pulmonary contusion, diaphragmatic rupture, anemia, neuromuscular, this is not meant to be an all-inclusive list. EKG interpreted by me (3pts min.). @ -As above X-rays interpreted by me (1pt min.). @ -Chest x-ray shows mild pulmonary edema CT interpreted by me (1pt min.). @ -None done U/S interpreted by me (1pt. min.). @ -None done What testing was considered but not performed or refused? (CT, X-rays, U/S, labs)? Why? @ -None What meds were considered but not given or refused? Why? @ -None Did you discuss the management of the patient with other professionals (professionals i.e. DrRhoda, PA, SENIOR GAMEMASTER, lab, RT, psych nurse, social service manager, flatbed stitcher, teacher, supply officer, bilingual patient support caseworker)? Give summary @ -I spoke with the [facility]ist agreed to admit the patient admit the patient wrote a bitting orders Was smoking cessation discussed for >3mins.? @ -No Was critical care preformed (if so, how long)? @ -No Were there social determinants of health that impacted care today? How? (Homelessness, low income, unemployed, alcoholism, drug addiction, transportation, low edu. Level, literacy, decrease access to med. care, long-term, rehab)? @ -No Was there de-escalation of care discussed even if they declined (Discuss DNR or withdrawal of care, Hospice)? DNR status @ -No What co-morbidities impacted this encounter? (DM, HTN, Smoking, COPD, CAD, Cancer, CVA, ARF, Chemo, Hep., AIDS, mental health diagnosis, sleep apnea, morbid obesity)? @ -None Was patient admitted / discharged? Hospital course, mention meds given and route, prescriptions, significant lab abnormalities, going to OR and other pertinent info. @ -Patient said the nitroglycerin that she received had taken away the chest pain completely. She still felt mildly short of breath. Spoke with [facility]ist agreed to admit the patient. I admit the patient wrote a bitting orders. Undiagnosed new problem with uncertain prognosis? @ -No Drug Therapy requiring intensive monitoring for toxicity (Heparin, Nitro, Insu juan, Cardizem)? @ -No Were any procedures done? @ -No Diagnosis/symptom? @ -Chest pain Acute, or Chronic, or Acute on Chronic? @ -Acute Uncomplicated (without systemic symptoms) or Complicated (systemic symptoms)? @ -Complicated Side effects of treatment? @ -No Exacerbation, Progression, or Severe Exacerbation? @ -No Poses a threat to life or bodily function? How? (Chest pain, USA, PR, pneumonia, PE, COPD, DKA, ARF, appy, cholecystitis, CVA, Diverticulitis, Homicidal, Suicidal, threat to staff... and all critical care pts) @ -Yes this can lead to an PR and endorgan dysfunction Diagnosis/symptom? @ -Pulmonary edema Acute, or Chronic, or Acute on Chronic? @ -Acute Uncomplicated (without systemic symptoms) or Complicated (systemic symptoms)? @ -Complicated and would like Side effects of treatment? @ -None Exacerbation, Progression, or Severe Exacerbation] @ -No Poses a threat to life or bodily function? @ -No - Lab Data Result diagrams: 05/15/25 12:45 05/15/25 12:45 Lab Results 05/15/25 05/15/25 05/15/25 Range/Units 12:45 12:45 12:45 WBC 10.19 H (4.50-10.00) 10*3/uL RBC 3.87 L (4.10-5.20) 10*6/uL Hgb 12.2 (12.0-15.0) g/dL Hct 36.6 L (37.2-46.3) % MCV 94.6 D (80.0-97.0) fL MCH 31.5 (27.0-32.0) pg MCHC 33.3 (32.0-37.0) g/dL Plt Count 331 (140-440) 10*3/uL MPV 8.8 L (9.5-12.2) fL Immature Gran % (Auto) 0.5 % Neutrophils % 86.3 % Lymphocytes % 7.6 % Monocytes % 4.5 % Eosinophils % 1.0 % Basophils % 0.1 % Immature Gran # 0.05 H (0.00-0.04) 10*3/uL Neutrophils # 8.80 H (1.80-7.70) 10*3/uL Lymphocytes # 0.77 L (0.90-5.00) 10*3/uL Monocytes # 0.46 (0.20-1.00) 10*3/uL Eosinophils # 0.10 (0.04-0.35) 10*3/uL Basophils # 0.01 (0.00-0.10) 10*3/uL Manual Slide Review Performed Immature Plt Fraction 1.2 (1.1-6.1) % RBC Morphology Normal PT (10.0-12.5) sec INR (<1.2) APTT (22.0-30.0) sec Sodium 134 L (137-145) mmol/L Potassium 4.7 (3.5-5.1) mmol/L Chloride 99 (98-107) mmol/L Carbon Dioxide 29 (22-30) mmol/L Anion Gap 6 mmol/L BUN 29 H (7-17) mg/dL Creatinine 0.61 (0.52-1.04) mg/dL Est GFR (CKD-EPI)AfAm >90 (>60 ml/min/1.73 sqM) Est GFR (CKD-EPI)NonAf 85 (>60 ml/min/1.73 sqM) Glucose 156 H (74-99) mg/dL Calcium 8.7 (8.4-10.2) mg/dL Magnesium 2.2 (1.6-2.3) mg/dL Total Bilirubin 1.1 (0.2-1.3) mg/dL AST 31 (14-36) U/L ALT 33 (4-34) U/L Alkaline Phosphatase 85 (38-126) U/L Troponin I 0.019 (0.000-0.034) ng/mL NT-Pro-B Natriuret Pep 2870 pg/mL Total Protein 5.5 L (6.3-8.2) g/dL Albumin 3.4 L (3.5-5.0) g/dL 05/15/25 Range/Units 14:52 WBC (4.50-10.00) 10*3/uL RBC (4.10-5.20) 10*6/uL Hgb (12.0-15.0) g/dL Hct (37.2-46.3) % MCV (80.0-97.0) fL MCH (27.0-32.0) pg MCHC (32.0-37.0) g/dL Plt Count (140-440) 10*3/uL MPV (9.5-12.2) fL Immature Gran % (Auto) % Neutrophils % % Lymphocytes % % Monocytes % % Eosinophils % % Basophils % % Immature Gran # (0.00-0.04) 10*3/uL Neutrophils # (1.80-7.70) 10*3/uL Lymphocytes # (0.90-5.00) 10*3/uL Monocytes # (0.20-1.00) 10*3/uL Eosinophils # (0.04-0.35) 10*3/uL Basophils # (0.00-0.10) 10*3/uL Manual Slide Review Immature Plt Fraction (1.1-6.1) % RBC Morphology PT 11.0 (10.0-12.5) sec INR 1.0 (<1.2) APTT 23.2 (22.0-30.0) sec Sodium (137-145) mmol/L Potassium (3.5-5.1) mmol/L Chloride (98-107) mmol/L Carbon Dioxide (22-30) mmol/L Anion Gap mmol/L BUN (7-17) mg/dL Creatinine (0.52-1.04) mg/dL Est GFR (CKD-EPI)AfAm (>60 ml/min/1.73 sqM) Est GFR (CKD-EPI)NonAf (>60 ml/min/1.73 sqM) Glucose (74-99) mg/dL Calcium (8.4-10.2) mg/dL Magnesium (1.6-2.3) mg/dL Total Bilirubin (0.2-1.3) mg/dL AST (14-36) U/L ALT (4-34) U/L Alkaline Phosphatase (38-126) U/L Troponin I (0.000-0.034) ng/mL NT-Pro-B Natriuret Pep pg/mL Total Protein (6.3-8.2) g/dL Albumin (3.5-5.0) g/dL Disposition Clinical Impression: Acute pulmonary edema, Chest pain Disposition: ADMITTED IP TO THIS HOSP Referrals: Norman Hall MD [Primary Care Provider] - 1-2 days Time of Disposition: 17:07
[2025-05-15] MEDS: ASPIRIN 81 MG PO STA (12:42)
[2025-05-15] MEDS: NITROGLYCERIN OINT 1 INCH/GM PACKET TOPICAL STA (12:42)
--- NOTE | 2025-05-15 13:24 | XR ---
EXAMINATION TYPE: XR chest 2V DATE OF EXAM: 05/15/2025 12:54 PM COMPARISON: 05/12/2025 CLINICAL INDICATION: Female, 79 years old with history of Chest Pain, , TECHNIQUE: AP and lateral views FINDINGS: Heart is borderline enlarged. Atherosclerotic arch calcifications. Interstitial densities. Asymmetric right paratracheal density corresponds to summation artifact when correlating with patient's 05/08/[address] No pleural effusion. Posterior lumbar fusion hardware. IMPRESSION: Borderline cardiomegaly and residual mild pulmonary vascular congestion. Overall similar appearance. [facility], Workstation: [id number], 05/15/2025 1:22 PM
[2025-05-15 13:26] LABS: Basophils # (A) 0.01 10*3/uL (0.00-0.10); Basophils % (A) 0.1 %; Eosinophils # (A) 0.10 10*3/uL (0.04-0.35); Eosinophils % (A) 1.0 %; HCT 36.6 % (37.2-46.3); HGB 12.2 g/dL (12.0-15.0); Immature Platelet Fraction 1.2 % (1.1-6.1); Lymphocytes # (A) 0.77 10*3/uL (0.90-5.00); Lymphocytes % (A) 7.6 %; MCH 31.5 pg (27.0-32.0); MCHC 33.3 g/dL (32.0-37.0); Monocytes # (A) 0.46 10*3/uL (0.20-1.00); Monocytes % (A) 4.5 %; Neutrophils # (A) 8.80 10*3/uL (1.80-7.70); Neutrophils % (A) 86.3 %; RBC 3.87 10*6/uL (4.10-5.20); RDW 13.4 % (11.5-14.5); WBC 10.19 10*3/uL (4.50-10.00)
[2025-05-15 13:46] LABS: ALT 33 U/L (4-34); African American GFR (CKD) >90 (>60 ml/min/1.73 sqM); Albumin 3.4 g/dL (3.5-5.0); Anion Gap 6 mmol/L; Blood Urea Nitrogen 29 mg/dL (7-17); Calcium 8.7 mg/dL (8.4-10.2); Carbon Dioxide 29 mmol/L (22-30); Chloride 99 mmol/L (98-107); Glucose 156 mg/dL (74-99); Non-African American GFR(CKD) 85 (>60 ml/min/1.73 sqM); Sodium 134 mmol/L (137-145); Total Protein 5.5 g/dL (6.3-8.2)
[2025-05-15 13:47] LABS: AST 31 U/L (14-36); Alkaline Phosphatase 85 U/L (38-126); Magnesium 2.2 mg/dL (1.6-2.3); Potassium 4.7 mmol/L (3.5-5.1)
[2025-05-15 13:53] LABS: NT-Pro-B-Type Natriuretic Pept 2870 pg/mL
[2025-05-15 15:14] LABS: RBC Morphology Normal
[2025-05-15 15:15] LABS: Platelet Count 331 10*3/uL (140-440)
[2025-05-15 15:33] LABS: INR 1.0 (<1.2); Partial Thromboplastin Time 23.2 sec (22.0-30.0); Prothrombin Time 11.0 sec (10.0-12.5)
[2025-05-15 15:35] LABS: MCV 94.6 fL (80.0-97.0)
[2025-05-15] MEDS ORDERED: NITROGLYCERIN SL TABS 0.4 MG TAB SUBLINGUAL PRN (17:09)
[2025-05-15] MEDS ORDERED: CARBAMIDE PEROXIDE 6.5% DROPS 15 ML BTL BOTH EARS PRN (18:38)
[2025-05-15] MEDS: ATORVASTATIN 40 MG TAB PO SCH (20:11)
[2025-05-15] MEDS: FUROSEMIDE 10 MG/ML 4 ML VIAL IV SCH (20:11)
[2025-05-15] MEDS: APIXABAN 5 MG TAB PO SCH (20:11)
[2025-05-15] MEDS: ISOSORBIDE DINITRATE 20 MG TAB PO SCH (22:22)
[2025-05-15] MEDS: HYDROcodone/APAP 5-325MG 1 EACH TAB PO PRN (23:29)
--- NOTE | 2025-05-16 00:05 | HP ---
HISTORY AND PHYSICAL CHIEF COMPLAINT: Chest pain and shortness of breath. HISTORY OF PRESENT ILLNESS: This 79-year-old woman with a past medical history of multiple medical problems including COPD, CHF, was at [facility]. The patient was noted to have chest pain, which was radiating to the left shoulder and some shortness of breath. The patient came to [facility] and admitted for further evaluation and treatment. The EKG showed atrial fibrillation. There is no history of fever, rigors, or chills at this time. PAST MEDICAL HISTORY: History of atrial fibrillation, COPD, diabetes mellitus type 2. Rest of the history and chart is also reviewed. HOME MEDICATIONS: Reviewed, include Coreg, dose and rest of medications reviewed. ALLERGIES: Lisinopril. Rest of medications reviewed. FAMILY HISTORY: No history of heart disease or strokes in family. SOCIAL HISTORY: No history of smoking, alcohol. REVIEW OF SYSTEMS: A 14-point review of systems negative except as mentioned earlier. PHYSICAL EXAMINATION: VITAL SIGNS: Pulse 88, blood pressure 126/80, and respirations 16. HEENT: Conjunctivae normal. CARDIOVASCULAR: S1, S2. RESPIRATION: Breath sounds diminished at the bases. A few scattered rhonchi. ABDOMEN: Soft, obese, nontender. LEGS: No edema. NERVOUS SYSTEM: No focal deficits. LABORATORY DATA: WBC 10.1. Rest of the labs are noted. Troponins are negative. EKG, atrial fibrillation. Chest x-ray, possible mild vascular congestion. ASSESSMENT: 1. Chest pain, possible unstable angina. 2. Chronic obstructive pulmonary disease. 3. Congestive heart failure. 4. Dialysis type 2. 5. Hypertension. 6. Hyperlipidemia. 7. History of atrial fibrillation. RECOMMENDATIONS: This 79-year-old woman presented with multiple complex medical issues. We will monitor the patient closely. I would recommend to continue current management and treatment, otherwise Cardiology consultation, possible stress test. The patient had apparently stress test about 5 years ago. Monitor fluid and electrolyte balance closely. Check D- dimer. Guarded prognosis because of multiple complex medical issues and further recommendations to follow. A 2D echo recently showed normal ejection fraction. MMODL / IJN: [id number] /
[2025-05-16] MEDS: PANTOPRAZOLE 40 MG TABLET PO SCH (06:37)
[2025-05-16] MEDS: NITROGLYCERIN OINT 1 INCH/GM PACKET TOPICAL SCH (06:38)
[2025-05-16 07:21] LABS: Basophils # (A) 0.01 10*3/uL (0.00-0.10); Basophils % (A) 0.1 %; Eosinophils # (A) 0.21 10*3/uL (0.04-0.35); Eosinophils % (A) 2.8 %; HCT 38.5 % (37.2-46.3); HGB 12.2 g/dL (12.0-15.0); Lymphocytes # (A) 1.93 10*3/uL (0.90-5.00); Lymphocytes % (A) 25.5 %; MCH 30.3 pg (27.0-32.0); MCHC 31.7 g/dL (32.0-37.0); MCV 95.8 fL (80.0-97.0); Monocytes # (A) 0.84 10*3/uL (0.20-1.00); Monocytes % (A) 11.1 %; Neutrophils # (A) 4.54 10*3/uL (1.80-7.70); Neutrophils % (A) 59.8 %; Platelet Count 314 10*3/uL (140-440); RBC 4.02 10*6/uL (4.10-5.20); RDW 13.3 % (11.5-14.5); WBC 7.58 10*3/uL (4.50-10.00)
[2025-05-16 07:39] LABS: African American GFR (CKD) >90 (>60 ml/min/1.73 sqM); Anion Gap 9 mmol/L; Blood Urea Nitrogen 23 mg/dL (7-17); Calcium 8.1 mg/dL (8.4-10.2); Carbon Dioxide 30 mmol/L (22-30); Chloride 96 mmol/L (98-107); Glucose 117 mg/dL (74-99); Non-African American GFR(CKD) 84 (>60 ml/min/1.73 sqM); Potassium 3.7 mmol/L (3.5-5.1); Sodium 135 mmol/L (137-145)
[2025-05-16] MEDS ORDERED: NON FORMULARY DRUG (Omeprazole 20 MG Capsule.Dr) PO SCH (08:00)
[2025-05-16] MEDS: ASPIRIN 325 MG TAB PO SCH (11:53)
[2025-05-16] MEDS: CYANOCOBALAMIN 500 MCG TAB PO SCH (11:57)
[2025-05-16] MEDS: DAPAGLIFLOZIN PROPANEDIOL 10 MG TABLET PO SCH (11:58)
[2025-05-16] MEDS: FERROUS SULFATE 325 MG TAB PO SCH (11:58)
[2025-05-16] MEDS: SENNOSIDES 8.6 MG TAB PO SCH (11:59)
[2025-05-16] MEDS: AMIODARONE 200 MG TAB PO SCH (12:07)
--- NOTE | 2025-05-16 13:48 | P.CRDCN ---
History of Present Illness History of present illness: HISTORY OF PRESENT ILLNESS: This is a 79-year-old female with a past medical history significant for congestive heart failure, normal coronary arteries, atrial fibrillation, hypertension and hyperlipidemia. 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 We have been asked to see the patient in consultation for pain and CHF. Patient examined at the bedside. Patient was recently admitted to the hospital with CHF. Patient was discharged to [facility] for rehab. She states she was feeling well when she left to go to [facility]. Yesterday morning, she woke up with palpitations. She reports she was having discomfort in her chest with radiation into her shoulder. She also reports having some nausea and dizziness. She states that she has been weak recently and has been having difficulty walking and is requiring a walker. She reports that she received aspirin and nitro en route to the hospital by EMS. She states about 30 minutes after being to the hospital all her symptoms improved. She denies any symptoms at the time of examination. She remains in atrial fibrillation with controlled ventricular rates. Additionally, patient was noted to be somewhat hypotensive upon arrival to the hospital for blood pressure of 91/64. DIAGNOSTICS: - EKG reveals atrial fibrillation with controlled ventricular rate. - Chest xray borderline cardiomegaly and residual mild pulmonary vascular hamzah estion. Overall similar appearance. - Laboratory data: WBC 7.58. He hemoglobin 12.2. Platelet count 314. D-dimer 0.46. Sodium 135. Potassium 3.7. BUN 23. Creatinine 0.65. Troponin negative x 3. proBNP 2870. - Current home cardiac medications include Lipitor 40 mg at night, Farxiga 10 mg daily, Eliquis 5 mg twice a day, Lasix 40 mg twice a day, Isordil 20 mg twice a day, hydralazine 25 mg twice a day, carvedilol 6.25 mg twice a day. - Most recent echocardiogram obtained in April 2025 revealed ejection fraction 55 to 60%, moderate concentric LVH, severe pulmonary hypertension, mild aortic stenosis with peak gradient 32 mmHg mean gradient 15 mmHg, mild TR - Cardiac catheterization history: 2016 revealing normal coronary arteries REVIEW OF SYSTEMS: At the time of my exam: CONSTITUTIONAL: Denies fever or chills. HEENT: Denies blurred vision, vision changes, or eye pain. Denies hemoptysis CARDIOVASCULAR: Denies chest pain. Denies orthopnea. Denies PND. Denies palpitations RESPIRATORY: Denies shortness of breath. GASTROINTESTINAL: Denies abdominal pain. Denies nausea or vomiting. HEMATOLOGIC: Denies bleeding disorders. GENITOURINARY: Denies any blood in urine. SKIN: Denies pruitis. Denies rash. PHYSICAL EXAM: VITAL SIGNS: Reviewed. GENERAL: Well-developed in no acute distress. HEENT: Head is normocephalic. Pupils are equal, round. Sclerae anicteric. Mucous membranes of the mouth are moist. Neck supple. No JVD or thyromegaly LUNGS: Respirations even and unlabored. Lungs essentially clear to auscultation bilaterally. HEART: Irregular rate and rhythm. S1 and S2 heard. Systolic murmur noted ABDOMEN: Soft. Nondistended. Nontender. EXTREMITIES: Normal range of motion. No clubbing or cyanosis. Peripheral pulses intact. No lower extremity edema NEUROLOGIC: Awake and alert. Oriented x 3. ASSESSMENT: Chest pain, acute coronary syndrome ruled out Palpitations Chronic heart failure with preserved EF Persistent atrial fibrillation Mild to moderate aortic stenosis Severe pulmonary hypertension Normal coronary arteries, per cath 2016 Hypertension Hyperlipidemia Family history of CAD, brother underwent CABG x 4 vessel PLAN: No need to repeat echocardiogram as this was performed in April 2025 Discontinue hydralazine due to blood pressures in the 90s upon admission to the hospital Continue IV Lasix for today. Recommend transitioning to oral diuretics page rrow. Add oral amiodarone 400 mg twice a day Continue telemetry monitoring Patient symptoms seem to be attributed to atrial fibrillation. Consider outpatient cardioversion. No evidence to suggest ischemia and no plans for stress testing or cardiac catheterization Patient with increased septal thickening and increased LVOT gradient. Consider outpatient workup for hypertrophic cardiomyopathy Further recommendations pending patient course Nurse practitioner note has been reviewed by physician. Signing provider agrees with the documented findings, assessment, and plan of care documented by [facility] as a scribe. 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 History of Any Multi-Drug Resistant Organisms: None Reported Past Surgical History: Appendectomy, Back Surgery, Cholecystectomy, Tonsillectomy Additional Past Surgical History / Comment(s): Knee replacement. D&Cs. Ovarian cyst removals Past Anesthesia/Blood Transfusion Reactions: No Reported Reaction Past Psychological History: No Psychological Hx Reported Smoking Status: Former smoker Past Alcohol Use History: None Reported Past Drug Use History: None Reported Medications and Allergies Home Medications Medication Instructions Recorded Confirmed Type Atorvastatin [Lipitor] 40 mg PO HS 05/07/25 05/15/25 History Carbamide Peroxide [Debrox Otic] 2 drops BOTH EARS DAILY PRN 05/07/25 05/15/25 History Cyanocobalamin (Vitamin B-12) 1,000 mcg PO DAILY 05/07/25 05/15/25 History [Vitamin B-12] DULoxetine HCL [Cymbalta] 20 mg PO DAILY 05/07/25 05/15/25 History Ferrous Sulfate [Iron (65 MG 325 mg PO DAILY 05/07/25 05/15/25 History Elemental)] Propylene Glycol/Peg 400 [Systane 1 - 2 drops BOTH EYES QID PRN 05/07/25 05/15/25 History Ultra 0.4-0.3% Eye Drp] Apixaban [Eliquis] 5 mg PO BID tab 05/13/25 05/15/25 Rx Dapagliflozin Propanediol [Farxiga] 10 mg PO DAILY #0 tab 05/13/25 05/15/25 Rx Isosorbide Dinitrate [Isordil] 20 mg PO BID tab 05/13/25 05/15/25 Rx Sennosides [Senokot] 8.6 mg PO DAILY #0 05/13/25 05/15/25 Rx hydrALAZINE HCL [Apresoline] 25 mg PO BID tab 05/13/25 05/15/25 Rx Furosemide [Lasix] 40 mg PO BID@0600,1400 05/15/25 05/15/25 History HYDROcodone/APAP 5-325MG [Junior 1 tab PO Q6H PRN 05/15/25 05/15/25 History 5-325] Omeprazole [PriLOSEC] 20 mg PO DAILY@0800 05/15/25 05/15/25 History carvediloL [Coreg] 6.25 mg PO BID@0900,1700 05/15/25 05/15/25 History predniSONE See Taper PO DIRECTED 05/15/25 05/15/25 History Allergies Allergy/AdvReac Type Severity Reaction Status Date / Time lisinopril Allergy Anaphylaxis Verified 05/15/25 14:33 metformin AdvReac kidneys Verified 05/15/25 14:33 shut down methotrexate AdvReac Rapid Verified 05/15/25 14:33 Heart Rate Physical Exam Vitals: Vital Signs Temp Pulse Pulse Resp BP BP BP 05/16/25 09:04 76 16 138/61 05/16/25 04:00 97.9 F 72 17 105/66 05/16/25 00:00 98 F 76 18 05/15/25 20:00 98.1 F 79 20 106/62 05/15/25 19:33 98.4 F 81 20 129/73 05/15/25 18:33 88 16 126/88 05/15/25 14:47 94 16 112/77 05/15/25 14:00 93 20 99/60 05/15/25 13:30 89 18 96/64 05/15/25 12:23 98.1 F 89 24 91/64 BP BP Pulse Ox 05/16/25 09:04 162/100 109/69 97 05/16/25 04:00 92 L 05/16/25 00:00 97 05/15/25 20:00 05/15/25 19:33 98 05/15/25 18:33 94 L 05/15/25 14:47 05/15/25 14:00 97 05/15/25 13:30 98 05/15/25 12:23 97 Intake and Output 05/15/25 05/16/25 05/16/25 22:59 06:59 14:59 Intake Total 270 Output Total 525 550 Balance 270 -525 -550 Intake: Oral 270 Output: Urine 525 550 Other: Voiding Method External Catheter External Catheter # Voids 1 Weight 113.398 kg 124.5 kg Results 05/16/25 06:42 05/16/25 06:42 Cardiac Enzymes 05/15/25 05/15/25 05/15/25 Range/Units 12:45 12:45 17:51 AST 31 (14-36) U/L Troponin I 0.019 0.014 (0.000-0.034) ng/mL 05/15/25 Range/Units 20:54 AST (14-36) U/L Troponin I 0.015 (0.000-0.034) ng/mL Coagulation 05/15/25 Range/Units 14:52 PT 11.0 (10.0-12.5) sec APTT 23.2 (22.0-30.0) sec CBC 05/15/25 05/16/25 Range/Units 12:45 06:42 WBC 10.19 H 7.58 (4.50-10.00) 10*3/uL RBC 3.87 L 4.02 L (4.10-5.20) 10*6/uL Hgb 12.2 12.2 (12.0-15.0) g/dL Hct 36.6 L 38.5 (37.2-46.3) % Plt Count 331 314 (140-440) 10*3/uL Comprehensive Metabolic Panel 05/15/25 05/16/25 Range/Units 12:45 06:42 Sodium 134 L 135 L (137-145) mmol/L Potassium 4.7 3.7 (3.5-5.1) mmol/L Chloride 99 96 L (98-107) mmol/L Carbon Dioxide 29 30 (22-30) mmol/L BUN 29 H 23 H (7-17) mg/dL Creatinine 0.61 0.65 (0.52-1.04) mg/dL Glucose 156 H 117 H (74-99) mg/dL Calcium 8.7 8.1 L (8.4-10.2) mg/dL AST 31 (14-36) U/L ALT 33 (4-34) U/L Alkaline Phosphatase 85 (38-126) U/L Total Protein 5.5 L (6.3-8.2) g/dL Albumin 3.4 L (3.5-5.0) g/dL Current Medications Generic Name Dose Route Start Last Admin Trade Name Freq PRN Reason Stop Dose Admin Hydrocodone Bitart/Acetaminophen 1 each 05/15/25 18:38 05/16/25 09:10 Hydrocodone/Apap 5-325mg 1 Each Tab PO 1 each Q6H PRN Administration Pain Apixaban 5 mg 05/15/25 21:00 05/15/25 20:11 Apixaban 5 Mg Tab PO 5 mg BID ELPIDIO Administration Protocol Aspirin 325 mg 05/16/25 09:00 Aspirin 325 Mg Tab PO DAILY ELPIDIO Atorvastatin Calcium 40 mg 05/15/25 21:00 05/15/25 20:11 Atorvastatin 40 Mg Tab PO 40 mg HS ELPIDIO Administration Carbamide Perox/Anhydrous Glycerin 2 drops 05/15/25 18:38 Carbamide Peroxide 6.5% Drops 15 Ml Btl BOTH EARS DAILY PRN earwax buildup Carvedilol 6.25 mg 05/16/25 09:00 Carvedilol 6.25 Mg Tab PO BID@0900,1700 [facility] Cyanocobalamin 1,000 mcg 05/16/25 09:00 Cyanocobalamin 500 Mcg Tab PO DAILY [facility] Dapagliflozin 10 mg 05/16/25 09:00 Dapagliflozin Propanediol 10 Mg Tablet PO DAILY [facility] Duloxetine HCl 20 mg 05/16/25 09:00 Duloxetine Hcl 20 Mg Capsule.Dr PO DAILY [facility] Ferrous Sulfate 325 mg 05/16/25 09:00 Ferrous Sulfate 325 Mg Tab PO DAILY [facility] Furosemide 40 mg 05/15/25 19:00 05/16/25 05:22 Furosemide 10 Mg/Ml 4 Ml Vial IV 40 mg Q12HR@0600,1800 [facility] Administration Hydralazine HCl 25 mg 05/15/25 21:00 05/15/25 20:11 Hydralazine Hcl 25 Mg Tab PO 25 mg BID [facility] Administration Isosorbide Dinitrate 20 mg 05/15/25 21:00 05/15/25 22:22 Isosorbide Dinitrate 20 Mg Tab PO 20 mg BID [facility] Administration Nitroglycerin 0.4 mg 05/15/25 17:09 Nitroglycerin Sl Tabs 0.4 Mg Tab SUBLINGUAL Q5M PRN Chest Pain Pantoprazole Sodium 40 mg 05/16/25 07:30 05/16/25 06:37 Pantoprazole 40 Mg Tablet PO 40 mg [id number] [facility] Administration Senna 8.6 mg 05/16/25 09:00 Sennosides 8.6 Mg Tab PO DAILY [facility] Intake and Output 05/15/25 05/16/25 05/16/25 22:59 06:59 14:59 Intake Total 270 Output Total 525 550 Balance 270 -525 -550 Intake: Oral 270 Output: Urine 525 550 Other: Voiding Method External Catheter External Catheter # Voids 1 Weight 113.398 kg 124.5 kg 05/16/25 06:42 05/16/25 06:42
[2025-05-16 15:49] LABS: Cholesterol 159.00 mg/dL (0.00-200.00); HDL Cholesterol 68.50 mg/dL (40.00-60.00); LDL Cholesterol,Calculated 68.9 mg/dL (0.0-131.0); Triglycerides 108.00 mg/dL (0.00-149.00); VLDL Calculation 21.60 mg/dL (5.00-40.00)
--- NOTE | 2025-05-17 06:20 | P.PN ---
Subjective Progress Note Date: 05/16/25 This is an 79-year-old female who was at [facility] and presented to the emergency department with left shoulder pain that was radiating with her chest pain as well as increased shortness of breath. Cardiology and pulmonary have been consulted and cardiology making adjustments to medications and recommending continued IV Lasix for another 24 hours with repeat labs. Patient is afebrile with no reports of further chest pain and is having occasional shortness of breath with exertion. Recommend follow-up labs in the a.m. to monitor kidney functions and electrolytes. Replace electrolytes per protocol Review of systems: Constitutional: No reports of fatigue, fever, or chills Cardiovascular: No reports of chest pain or palpitations Respiratory: reports of intermittent shortness of breath GI: No reports of nausea, no reports of vomiting, : No reports of dysuria or retention Neurovascular: reports of generalized weakness All medications have been reviewed Active Medications PHYSICAL EXAMINATION: GENERAL: The patient is alert and oriented x3, Well developed, well nourished. HEENT: Pupils are round and equally reacting to light. EOMI. no scleral icterus. No conjunctival pallor. Normocephalic, atraumatic. No pharyngeal erythema. No thyromegaly. CARDIOVASCULAR: S1 and S2 muffled PULMONARY: diminished breath sounds bilaterally with some scattered rhonchi and faint crackles noted. ABDOMEN: soft. Nontender on exam. obese. non-distended, normoactive bowel sounds. No palpable organomegaly. MUSCULOSKELETAL: No joint swelling or deformity. EXTREMITIES: No cyanosis, clubbing, or pedal edema. NEUROLOGICAL: Gross neurological examination did not reveal any focal deficits. Diffuse weakness SKIN: No rashes. Assessment: Chest pain, possible unstable angina, ACS ruled out Chronic obstructive pulmonary disease, acute exacerbation Congestive heart failure with acute on chronic, with preserved EF, acute exacerbation History of persistent atrial fibrillation Severe pulmonary hypertension Diabetes melitis type 2 Hypertension history Hyperlipidemia history History of atrial fibrillation, currently rate controlled Obesity with a BMI of 38.8 GI prophylaxis DVT prophylaxis Full code Plan: Recommend to continue with current medications and management with pulmonary and cardiology following. Pulmonary consult is pending at this time regimen. Cardiology following as well and will await clearance from cardiology. Discussed briefly and would like to monitor overnight and continue current regimen for another 24 hours [facility] and will need to discuss with case management regarding discharge planning Due to multiple complex medical issues, overall prognosis is guarded The impression and plan of care has been dictated by Rona Lawson, nurse practitioner as directed. Dr. Carloz MD I have performed a history and examination and MDM of this patient, discussed the same with the dictator, and agree with the dictator's assessment and plan as written ,documented as a scribe. Based on total visit time, I have performed more than 50% of the visit. Any additional findings or plans will be noted. Objective - Vital Signs Vital signs: Vital Signs Temp 97.8 F 05/17/25 04:00 Pulse 81 05/17/25 04:00 Resp 18 05/17/25 04:00 BP 139/68 05/17/25 04:00 Pulse Ox 94 L 05/17/25 04:00 FiO2 21 05/16/25 11:47 Intake & Output 05/16/25 05/16/25 05/17/25 06:59 18:59 06:59 Intake Total 270 460 10 Output Total 525 750 550 Balance -255 -290 -540 Weight 124.5 kg 122.5 kg Intake: IV 10 Invasive Line 1 10 Oral 270 460 0 Output: Urine 525 750 550 Other: Voiding Method External Catheter External Catheter # Voids 1 1 4 # Bowel Movements 1 - Labs CBC & Chem 7: 05/16/25 06:42 05/16/25 06:42 Labs: Abnormal Lab Results - Last 24 Hours (Table) 05/16/25 05/16/25 Range/Units 06:42 06:42 RBC 4.02 L (4.10-5.20) 10*6/uL MCHC 31.7 L (32.0-37.0) g/dL MPV 8.1 L (9.5-12.2) fL Immature Gran # 0.05 H (0.00-0.04) 10*3/uL Sodium 135 L (137-145) mmol/L Chloride 96 L (98-107) mmol/L BUN 23 H (7-17) mg/dL Glucose 117 H (74-99) mg/dL Calcium 8.1 L (8.4-10.2) mg/dL HDL Cholesterol 68.50 H (40.00-60.00) mg/dL
[2025-05-17 07:31] LABS: African American GFR (CKD) >90 (>60 ml/min/1.73 sqM); Anion Gap 3 mmol/L; Blood Urea Nitrogen 24 mg/dL (7-17); Calcium 8.2 mg/dL (8.4-10.2); Carbon Dioxide 31 mmol/L (22-30); Chloride 100 mmol/L (98-107); Glucose 129 mg/dL (74-99); Non-African American GFR(CKD) 81 (>60 ml/min/1.73 sqM); Potassium 4.0 mmol/L (3.5-5.1); Sodium 134 mmol/L (137-145)
--- NOTE | 2025-05-17 13:17 | P.PN ---
Subjective HISTORY OF PRESENT ILLNESS: This is a 79-year-old female with a past medical history significant for congestive heart failure, normal coronary arteries, atrial fibrillation, hypertension and hyperlipidemia. Patient does not follow with a account installation specialist. We have been asked to see the patient in consultation for pain and CHF. Patient examined at the bedside. Patient was recently admitted to the hospital with CHF. Patient was discharged to [facility] for rehab. She states she was feeling well when she left to go to [facility]. Yesterday morning, she woke up with palpitations. She reports she was having discomfort in her chest with radiation into her shoulder. She also reports having some nausea and dizziness. She states that she has been weak recently and has been having difficulty walking and is requiring a walker. She reports that she received aspirin and nitro en route to the hospital by EMS. She states about 30 minutes after being to the hospital all her symptoms improved. She denies any symptoms at the time of examination. She remains in atrial fibrillation with controlled ventricular rates. Additionally, patient was noted to be somewhat hypotensive upon arrival to the hospital for blood pressure of 91/64. DIAGNOSTICS: - EKG reveals atrial fibrillation with controlled ventricular rate. - Chest xray borderline cardiomegaly and residual mild pulmonary vascular congestion. Overall similar appearance. - Laboratory data: WBC 7.58. He hemoglobin 12.2. Platelet count 314. D-dimer 0.46. Sodium 135. Potassium 3.7. BUN 23. Creatinine 0.65. Troponin negative x 3. proBNP 2870. - Current home cardiac medications include Lipitor 40 mg at night, Farxiga 10 mg daily, Eliquis 5 mg twice a day, Lasix 40 mg twice a day, Isordil 20 mg twice a day, hydralazine 25 mg twice a day, carvedilol 6.25 mg twice a day. - Most recent echocardiogram obtained in April 2025 revealed ejection fraction 55 to 60%, moderate concentric LVH, severe pulmonary hypertension, mild aortic stenosis with peak gradient 32 mmHg mean gradient 15 mmHg, mild TR - Cardiac catheterization history: 2017 revealing normal coronary arteries 05/17/2025 Patient examined this morning. She is sitting up in the chair. She states she is feeling much better today. She denies any chest pain or pressure. She denies any shortness of breath. Denies dizziness or lightheadedness. She denies any palpitations. Telemetry reveals atrial fibrillation with a heart rate in the 80s. PHYSICAL EXAM: VITAL SIGNS: Reviewed. GENERAL: Well-developed in no acute distress. HEENT: Head is normocephalic. Pupils are equal, round. Sclerae anicteric. Mucous membranes of the mouth are moist. Neck supple. No JVD or thyromegaly LUNGS: Respirations even and unlabored. Lungs essentially clear to auscultation bilaterally. HEART: Irregular rate and rhythm. S1 and S2 heard. Systolic murmur noted ABDOMEN: Soft. Nondistended. Nontender. EXTREMITIES: Normal range of motion. No clubbing or cyanosis. Peripheral pulses intact. No lower extremity edema NEUROLOGIC: Awake and alert. Oriented x 3. ASSESSMENT: Chest pain, acute coronary syndrome ruled out Palpitations Chronic heart failure with preserved EF Persistent atrial fibrillation Mild to moderate aortic stenosis Severe pulmonary hypertension Normal coronary arteries, per cath 2017 Hypertension Hyperlipidemia Family history of CAD, brother underwent CABG x 4 vessel PLAN: No need to repeat echocardiogram as this was performed in April 2025 Hydralazine discontinued upon admission secondary to blood pressures in the 90s. Do not resume upon discharge. Discontinue IV Lasix. Begin oral Lasix 40 mg twice a day Continue oral amiodarone. 400 mg twice a day for 1 week, then decrease to 200 mg twice a day for 1 week, then decrease to 200 mg daily Continue telemetry monitoring Patient symptoms seem to be attributed to atrial fibrillation. Consider outpatient cardioversion. No evidence to suggest ischemia and no plans for stress testing or cardiac catheterization Patient with increased septal thickening and increased LVOT gradient. Consider outpatient workup for hypertrophic cardiomyopathy Patient is stable for discharge back to [facility] from a cardiac standpoint Further recommendations pending patient course Nurse practitioner note has been reviewed by physician. Signing provider agrees with the documented findings, assessment, and plan of care documented by [employer] as a scribe. Objective - Vital Signs Vital signs: Vital Signs Temp 97.8 F 05/17/25 04:00 Pulse 86 05/17/25 11:20 Resp 16 05/17/25 11:20 BP 104/61 05/17/25 11:35 Pulse Ox 99 05/17/25 11:20 FiO2 21 05/16/25 11:47 Intake & Output 05/16/25 05/17/25 05/17/25 18:59 06:59 18:59 Intake Total 460 10 118 Output Total 750 650 450 Balance -290 -640 -332 Weight 122.5 kg Intake: IV 10 Invasive Line 1 10 Oral 460 0 118 Output: Urine 750 650 450 Other: Voiding Method External Catheter # Voids 1 4 # Bowel Movements 1 - Labs CBC & Chem 7: 05/16/25 06:42 05/17/25 06:42 Labs: Abnormal Lab Results - Last 24 Hours (Table) 05/16/25 05/17/25 Range/Units 06:42 06:42 Sodium 134 L (137-145) mmol/L Carbon Dioxide 31 H (22-30) mmol/L BUN 24 H (7-17) mg/dL Glucose 129 H (74-99) mg/dL Calcium 8.2 L (8.4-10.2) mg/dL HDL Cholesterol 68.50 H (40.00-60.00) mg/dL
[2025-05-17] MEDS: FUROSEMIDE 40 MG TAB PO SCH (16:35)
[2025-05-18 07:30] LABS: African American GFR (CKD) 87 (>60 ml/min/1.73 sqM); Anion Gap 5 mmol/L; Blood Urea Nitrogen 22 mg/dL (7-17); Calcium 8.5 mg/dL (8.4-10.2); Carbon Dioxide 30 mmol/L (22-30); Chloride 100 mmol/L (98-107); Glucose 135 mg/dL (74-99); Non-African American GFR(CKD) 75 (>60 ml/min/1.73 sqM); Potassium 3.8 mmol/L (3.5-5.1); Sodium 135 mmol/L (137-145)
--- NOTE | 2025-05-18 10:20 | XR ---
EXAMINATION TYPE: XR chest 1V portable DATE OF EXAM: 05/18/2025 10:10 AM COMPARISON: 05/15/2025 CLINICAL INDICATION: Female, 79 years old with history of chf, TECHNIQUE: XR chest 1V portable views of the chest are obtained. FINDINGS: Demonstrated are scattered senescent parenchymal change. There is no evidence for focal infiltrate. The heart is stable. Hilar and mediastinal structures are within normal limits. Degenerative changes are seen of the dorsal spine. IMPRESSION: 1. Chronic changes without evidence for acute pulmonary disease. [facility], , 05/18/2025 10:18 AM
--- NOTE | 2025-05-19 00:11 | P.PN ---
Subjective Progress Note Date: 05/18/25 HISTORY OF PRESENT ILLNESS: This is a 79-year-old female with a past medical history significant for co ngestive heart failure, normal coronary arteries, atrial fibrillation, hypertension and hyperlipidemia. 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 We have been asked to see the patient in consultation for pain and CHF. Patient examined at the bedside. Patient was recently admitted to the hospital with CHF. Patient was discharged to [facility] for rehab. She states she was feeling well when she left to go to [facility]. Yesterday morning, she woke up with palpitations. She reports she was having discomfort in her chest with radiation into her shoulder. She also reports having some nausea and dizziness. She states that she has been weak recently and has been having difficulty walking and is requiring a walker. She reports that she received aspirin and nitro en route to the hospital by EMS. She states about 30 minutes after being to the hospital all her symptoms improved. She denies any symptoms at the time of examination. She remains in atrial fibrillation with controlled ventricular r ates. Additionally, patient was noted to be somewhat hypotensive upon arrival to the hospital for blood pressure of 91/64. DIAGNOSTICS: - EKG reveals atrial fibrillation with controlled ventricular rate. - Chest xray borderline cardiomegaly and residual mild pulmonary vascular congestion. Overall similar appearance. - Laboratory data: WBC 7.58. He hemoglobin 12.2. Platelet count 314. D-dimer 0.46. Sodium 135. Potassium 3.7. BUN 23. Creatinine 0.65. Troponin negative x 3. proBNP 2870. - Current home cardiac medications include Lipitor 40 mg at night, Farxiga 10 mg daily, Eliquis 5 mg twice a day, Lasix 40 mg twice a day, Isordil 20 mg twice a day, hydralazine 25 mg twice a day, carvedilol 6.25 mg twice a day. - Most recent echocardiogram obtained in April 2025 revealed ejection fraction 55 to 60%, moderate concentric LVH, severe pulmonary hypertension, mild aortic stenosis with peak gradient 32 mmHg mean gradient 15 mmHg, mild TR - Cardiac catheterization history: 2016 revealing normal coronary arteries 05/17/2025 Patient examined this morning. She is sitting up in the chair. She states she is feeling much better today. She denies any chest pain or pressure. She denie s any shortness of breath. Denies dizziness or lightheadedness. She denies any palpitations. Telemetry reveals atrial fibrillation with a heart rate in the 80s. 05/18/2025 Seen and examined at bedside this a.m. Reports feeling back to normal. Hemodynamically stable PHYSICAL EXAM: VITAL SIGNS: Reviewed. GENERAL: Well-developed in no acute distress. HEENT: Head is normocephalic. Pupils are equal, round. Sclerae anicteric. Mucous membranes of the mouth are moist. Neck supple. No JVD or thyromegaly LUNGS: Respirations even and unlabored. Lungs essentially clear to auscultation bilaterally. HEART: Irregular rate and rhythm. S1 and S2 heard. Systolic murmur noted ABDOMEN: Soft. Nondistended. Nontender. EXTREMITIES: Normal range of motion. No clubbing or cyanosis. Peripheral pulses intact. No lower extremity edema NEUROLOGIC: Awake and alert. Oriented x 3. ASSESSMENT: Chest pain, acute coronary syndrome ruled out Palpitations Chronic heart failure with preserved EF Persistent atrial fibrillation Mild to moderate aortic stenosis Severe pulmonary hypertension Normal coronary arteries, per cath 2016 Hypertension Hyperlipidemia Family history of CAD, brother underwent CABG x 4 vessel PLAN: No need to repeat echocardiogram as this was performed in April 2025 Hydralazine discontinued upon admission secondary to blood pressures in the 90s. Do not resume upon discharge. Discontinue IV Lasix. Begin oral Lasix 40 mg twice a day Continue oral amiodarone. 400 mg twice a day for 1 week, then decrease to 200 mg twice a day for 1 week, then decrease to 200 mg daily Continue telemetry monitoring Patient symptoms seem to be attributed to atrial fibrillation. Consider outpati ent cardioversion. No evidence to suggest ischemia and no plans for stress testing or cardiac catheterization Patient with increased septal thickening and increased LVOT gradient. Consider outpatient workup for hypertrophic cardiomyopathy Patient is stable for discharge back to [facility] from a cardiac standpoint Objective - Vital Signs Vital signs: Vital Signs Temp 98.1 F 05/18/25 23:39 Pulse 67 05/18/25 23:39 Resp 16 05/18/25 23:39 BP 121/82 05/18/25 23:39 Pulse Ox 96 05/18/25 23:39 FiO2 21 05/16/25 11:47 Intake & Output 05/18/25 05/18/25 05/19/25 06:59 18:59 06:59 Intake Total 236 Output Total 500 750 Balance -500 -514 Weight 122.3 kg Intake: Oral 236 Output: Urine 500 750 Other: Voiding Method External Catheter External Catheter External Catheter # Voids 2 - Labs CBC & Chem 7: 05/16/25 06:42 05/18/25 06:45 Labs: Abnormal Lab Results - Last 24 Hours (Table) 05/18/25 Range/Units 06:45 Sodium 135 L (137-145) mmol/L BUN 22 H (7-17) mg/dL Glucose 135 H (74-99) mg/dL
--- NOTE | 2025-05-19 04:10 | PN ---
PROGRESS NOTE DATE OF SERVICE: 05/18/2025 SUBJECTIVE: This 79-year-old woman was admitted with chest pain, also had a COPD. The most recent chest x-ray which I reviewed showed some improvement. PHYSICAL EXAMINATION: VITAL SIGNS: Pulse is 74, blood pressure 105/60, respirations 16. CHEST: Bilateral scattered rhonchi and crackles. ABDOMEN: Soft. LABORATORY DATA: Reviewed. ASSESSMENT: 1. Chest pain, possible unstable angina. 2. Chronic obstructive pulmonary disease, acute exacerbation. 3. Congestive heart failure, acute on chronic, acute exacerbation. 4. Persistent atrial fibrillation. 5. Multiple complex medical issues. RECOMMENDATIONS: I recommend to continue current medications, continue symptomatic treatment. Otherwise, continue with the diuretics. Repeat labs. Possible ECF rehab. Further recommendations to follow. The patient wants to go to [facility] home after the ECF rehab. JIMENEZ / JONATHAN: [id number] /
[2025-05-19 08:04] LABS: Basophils # (A) 0.03 10*3/uL (0.00-0.10); Basophils % (A) 0.5 %; Eosinophils # (A) 0.34 10*3/uL (0.04-0.35); Eosinophils % (A) 5.6 %; HCT 38.3 % (37.2-46.3); HGB 12.3 g/dL (12.0-15.0); Lymphocytes # (A) 1.32 10*3/uL (0.90-5.00); Lymphocytes % (A) 21.7 %; MCH 30.9 pg (27.0-32.0); MCHC 32.1 g/dL (32.0-37.0); MCV 96.2 fL (80.0-97.0); Monocytes # (A) 0.68 10*3/uL (0.20-1.00); Monocytes % (A) 11.2 %; Neutrophils # (A) 3.67 10*3/uL (1.80-7.70); Neutrophils % (A) 60.5 %; Platelet Count 263 10*3/uL (140-440); RBC 3.98 10*6/uL (4.10-5.20); RDW 13.4 % (11.5-14.5); WBC 6.07 10*3/uL (4.50-10.00)
[2025-05-19 08:30] LABS: African American GFR (CKD) 83 (>60 ml/min/1.73 sqM); Anion Gap 6 mmol/L; Blood Urea Nitrogen 17 mg/dL (7-17); Calcium 8.6 mg/dL (8.4-10.2); Carbon Dioxide 31 mmol/L (22-30); Chloride 96 mmol/L (98-107); Glucose 120 mg/dL (74-99); Non-African American GFR(CKD) 72 (>60 ml/min/1.73 sqM); Potassium 3.8 mmol/L (3.5-5.1); Sodium 133 mmol/L (137-145)
[2025-05-19 15:18] VITALS: BP 115/70; PULSE 75; RESP 17; TEMP 97.8
--- NOTE | 2025-05-19 15:19 | P.DS ---
Providers Date of admission: 05/16/25 07:18 Expected date of discharge: 05/19/25 Attending physician: See Carty Primary care physician: Norman Hall Hospital Course: Final diagnosis Chest pain, possible unstable angina, ACS ruled out Chronic obstructive pulmonary disease, acute exacerbation Congestive heart failure with acute on chronic, with preserved EF, acute exacerbation History of persistent atrial fibrillation Severe pulmonary hypertension Diabetes melitis type 2 Hypertension history Hyperlipidemia history History of atrial fibrillation, currently rate controlled Obesity with a BMI of 38.8 GI prophylaxis DVT prophylaxis Full code Discharge disposition Patient is being discharged in a stable condition with guarded prognosis to [facility]. Patient will follow-up with Dr. Hall in the outpatient setting upon discharge. Continue oral amiodarone 400 mg twice a day for 1 week, then decrease to 200 mg twice a day for 1 week, then decrease to 200 mg daily. Patient to follow-up with cardiology outpatient. Total time taken is greater than 35 minutes. Hospital course This is an 79-year-old female who was at [facility] and presented to the emergency department with left shoulder pain that was radiating with her chest pain as well as increased shortness of breath. Cardiology and pulmonary have been consulted and cardiology making adjustments to medications and recommending c ontinued Lasix twice daily and outpatient follow-up. Patient will continue on amiodarone taper at 400 mg twice a day for 1 week, then decrease to 200 mg twice daily for 1 week then 200 mg daily thereafter. Patient to follow-up outpatient with cardiology in the next 1 to 2 weeks. Currently patient is afebrile with no reports of further chest pain and is having occasional shortness of breath with exertion. Patient will be returning to [facility] on [facility]. Please refer to consultation notes for further HPI. PHYSICAL EXAMINATION: GENERAL: The patient is alert and oriented x3, Well developed, well nourished. Elderly appearing, morbidly obese HEENT: Pupils are round and equally reacting to light. EOMI. no scleral icterus. No conjunctival pallor. Normocephalic, atraumatic. No pharyngeal erythema. No thyromegaly. CARDIOVASCULAR: S1 and S2 muffled PULMONARY: diminished breath sounds bilaterally with some scattered rhonchi and faint crackles noted. ABDOMEN: soft. Nontender on exam. obese. non-distended, normoactive bowel sounds. No palpable organomegaly. MUSCULOSKELETAL: No joint swelling or deformity. EXTREMITIES: No cyanosis, clubbing, or pedal edema. NEUROLOGICAL: Gross neurological examination did not reveal any focal deficits. Diffuse weakness SKIN: No rashes. Please refer to medication reconciliation sheet for a list of medications. The impression and plan of care has been dictated by Rona Lawson, nurse practitioner as directed. Dr. Carloz MD I have performed a history and examination and MDM of this patient, discussed the same with the dictator, and agree with the dictator's assessment and plan as written ,documented as a scribe. Based on total visit time, I have performed more than 50% of the visit. Any additional findings or plans will be noted. Patient Condition at Discharge: Fair Plan - Discharge Summary Discharge Rx Participant: No New Discharge Prescriptions: New Amiodarone [Cordarone] 400 mg PO BID tab Pantoprazole [Protonix] 40 mg PO [id number]-[id number] tab Continue Propylene Glycol/Peg 400 [Systane Ultra 0.4-0.3% Eye Drp] 1 - 2 drops BOTH EYES QID PRN PRN Reason: Dry Eye(S) DULoxetine HCL [Cymbalta] 20 mg PO DAILY Isosorbide Dinitrate [Isordil] 20 mg PO BID tab Sennosides [Senokot] 8.6 mg PO DAILY #0 Furosemide [Lasix] 40 mg PO BID@0600,1400 carvediloL [Coreg] 6.25 mg PO BID@0900,1700 Ferrous Sulfate [Iron (65 MG Elemental)] 325 mg PO DAILY Carbamide Peroxide [Debrox Otic] 2 drops BOTH EARS DAILY PRN PRN Reason: earwax buildup Atorvastatin [Lipitor] 40 mg PO HS Cyanocobalamin (Vitamin B-12) [Vitamin B-12] 1,000 mcg PO DAILY Apixaban [Eliquis] 5 mg PO BID tab Dapagliflozin Propanediol [Farxiga] 10 mg PO DAILY #0 tab Changed HYDROcodone/APAP 5-325MG [Underwood 5-325] 1 tab PO Q6H PRN #6 tab PRN Reason: Pain Discontinued hydrALAZINE HCL [Apresoline] 25 mg PO BID tab predniSONE See Taper PO DIRECTED Omeprazole [PriLOSEC] 20 mg PO DAILY@0800 Discharge Medication List Atorvastatin [Lipitor] 40 mg PO HS 05/07/25 [History] Carbamide Peroxide [Debrox Otic] 2 drops BOTH EARS DAILY PRN 05/07/25 [History] Cyanocobalamin (Vitamin B-12) [Vitamin B-12] 1,000 mcg PO DAILY 05/07/25 [History] DULoxetine HCL [Cymbalta] 20 mg PO DAILY 05/07/25 [History] Ferrous Sulfate [Iron (65 MG Elemental)] 325 mg PO DAILY 05/07/25 [History] Propylene Glycol/Peg 400 [Systane Ultra 0.4-0.3% Eye Drp] 1 - 2 drops BOTH EYES QID PRN 05/07/25 [History] Apixaban [Eliquis] 5 mg PO BID tab 05/13/25 [Rx] Dapagliflozin Propanediol [Farxiga] 10 mg PO DAILY #0 tab 05/13/25 [Rx] Isosorbide Dinitrate [Isordil] 20 mg PO BID tab 05/13/25 [Rx] Sennosides [Senokot] 8.6 mg PO DAILY #0 05/13/25 [Rx] Furosemide [Lasix] 40 mg PO BID@0600,1400 05/15/25 [History] carvediloL [Coreg] 6.25 mg PO BID@0900,1700 05/15/25 [History] Amiodarone [Cordarone] 400 mg PO BID tab 05/19/25 [Rx] HYDROcodone/APAP 5-325MG [Underwood 5-325] 1 tab PO Q6H PRN #6 tab 05/19/25 [Rx] Pantoprazole [Protonix] 40 mg PO AC-BRKFST tab 05/19/25 [Rx] Follow up Appointment(s)/Referral(s): Norman Hall MD [Primary Care Provider] - 1-2 days [facility] on the [place], [NON-STAFF] - 1 Week Activity/Diet/Wound Care/Special Instructions: Patient is going to [facility] Activity as tolerated Patient to follow-up with cardiology on discharge Continue medications as prescribed Discharge Disposition: TRANSFER TO SNF/ECF
== END 2025-05-19 19:48 | DRG 291 ==
LOC: EC 12:20 → 3SCARD 17:10 → OBSVTOIN 05-16 07:18
PROVIDERS: ADMIT Hospitalist; ATTEND Hospitalist
DX: I11.0 Hypertensive heart disease with heart failure (principal); I50.33 Acute on chronic diastolic (congestive) heart failure; J44.1 Chronic obstructive pulmonary disease with (acute) exacerbation; I27.20 Pulmonary hypertension, unspecified; E11.9 Type 2 diabetes mellitus without complications; Z68.38 Body mass index [BMI] 38.0-38.9, adult; I35.0 Nonrheumatic aortic (valve) stenosis; I48.19 Other persistent atrial fibrillation; I20.0 Unstable angina; E78.5 Hyperlipidemia, unspecified; E66.9 Obesity, unspecified; Z79.899 Other long term (current) drug therapy; Z79.01 Long term (current) use of anticoagulants; Z88.8 Allergy status to other drugs, medicaments and biological substances; Z82.49 Family history of ischemic heart disease and other diseases of the circulatory system; Z79.84 Long term (current) use of oral hypoglycemic drugs; Z87.891 Personal history of nicotine dependence
CPT/HCPCS: 36415; 71045; 71046; 80048; 80053; 80061; 83735; 83880; 84484; 85025; 85379; 85610; 85730; 93005; 94760; 96374; 99285